=== PATIENT | female | born 1935 | race Caucasian/White ===

== ENCOUNTER → 2017-01-14 | Outpatient (CLI) | payer OTHER ==
[~2017-01-14] MED LIST: ATV5 PO; CRDCD120 PO; ESTA1TAB PO; FSM70 PO; HMLI SC; LISI40TA PO; MULT-506 PO; SIMV20TA2 PO; SYN75 PO; [UNRECOGNIZED DRUG - CODE] PO
[2017-01-14 14:55] LABS: BASO % 0.4 %; BASO ABS # 0.04 K/uL (0-0.2); EOS % 0.3 %; HEMATOCRIT 35.1 % (37-47); IG% 1.3 %; LYMPH % 20.5 %; LYMPH ABS # 2.08 K/uL (1.2-3.4); MEAN CORPUSCULAR HGB CONC 30.5 g/dl (32-36); MEAN PLATELET VOLUME 10.5 fL (7.4-10.4); MONO % 4.2 %; NEUT % 73.3 %; PLATELET COUNT 277 K/uL (130-400); RED BLOOD COUNT 5.09 M/uL (4.2-5.4); WHITE BLOOD COUNT 10.13 K/uL (4.8-10.8)
[2017-01-14 15:17] LABS: ALB/GLOB RATIO 1.1 (0.9-2); ALT/SGPT 24 U/L (12-78); AST/SGOT 17 U/L (15-37); BLOOD UREA NITROGEN 25 mg/dl (7-18); BUN/CREATININE RATIO 16.7 (10-20); CARBON DIOXIDE 26 mmol/L (21-32); CHLORIDE 104 mmol/L (98-107); CHOLESTEROL 167 mg/dl (0-200); GLUCOSE 232 mg/dl (70-99); POTASSIUM 4.5 mmol/L (3.5-5.1); SODIUM 139 mmol/L (136-145); TRIGLYCERIDES 329 mg/dl (0-150); VERY LOW DENSITY LIPOPROT CALC 66 mg/dl
[2017-01-14 15:21] LABS: ALKALINE PHOSPHATASE 99 U/L (45-117); CHOLESTEROL/HDL RATIO 3.2; HDL CHOLESTEROL 52 mg/dl; LDL CHOLESTEROL CALCULATED 49 mg/dl
[2017-01-14 16:09] LABS: ANISOCYTOSIS PRESENT; COMPLETE YES; POIKILOCYTOSIS PRESENT; POLYCHROMASIA 1+
[2017-01-14 16:11] LABS: URINE PROTIEN/CREAT RATIO 0.4 (0-0.2); URINE TOTAL PROTEIN 95.1 mg/dl (0-11.9)
[2017-01-15 06:07] LABS: ESTIMATED AVERAGE GLUCOSE 163 mg/dl; HA1C FLAG Normal (Normal)
--- NOTE | 2017-01-18 11:58 | CODING QUERY MEDICAL NECESSITY ---
SUPPORTING DIAGNOSIS NEEDED Dr. Barbour, A supporting diagnosis is required for the test/procedure performed on this patient in order for us to be reimbursed by the patient's insurance. Please provide a supporting diagnosis for the following test/procedure listed below next to the test name along with your signature. *If there is no additional diagnosis for this patient that would support the following test/procedure please document that below next to the test/procedure. Test(s)/Procedure(s) that require a supporting diagnosis: * ([id number]) B12 VITAMIN LEVEL DIAGNOSIS: DATE OF SERVICE: 01/14/17 Provider Signature: Date: Thank you Jorge Yi [facility] Information Management Once completed, please kindly fax back to [phone] For questions please call [phone]
== END | disposition home or self-care (01) ==
LOC: C.LAB 12:49
PROVIDERS: ATTEND Internal Medicine Geriatric Medicine
DX: E03.9 Hypothyroidism, unspecified (principal); E78.5 Hyperlipidemia, unspecified; D56.3 Thalassemia minor; E11.29 Type 2 diabetes mellitus with other diabetic kidney complication; E11.22 Type 2 diabetes mellitus with diabetic chronic kidney disease; E55.9 Vitamin D deficiency, unspecified; N18.3 Chronic kidney disease, stage 3 (moderate)

== ENCOUNTER → 2017-05-09 | Outpatient (CLI) | payer OTHER ==
[2017-05-09 13:16] LABS: BASO % 0.5 %; BASO ABS # 0.05 K/uL (0-0.2); EOS % 3.1 %; IG% 0.4 %; LYMPH % 31.2 %; LYMPH ABS # 2.89 K/uL (1.2-3.4); MEAN CELL VOLUME 67.5 fL (80-100); MEAN CORPUSCULAR HEMOGLOBIN 20.6 pg (25-34); MEAN CORPUSCULAR HGB CONC 30.6 g/dl (32-36); MEAN PLATELET VOLUME 11.2 fL (7.4-10.4); MONO % 8.2 %; NEUT % 56.6 %; PLATELET COUNT 236 K/uL (130-400); RED BLOOD COUNT 5.33 M/uL (4.2-5.4); WHITE BLOOD COUNT 9.26 K/uL (4.8-10.8)
[2017-05-09 13:38] LABS: BLOOD UREA NITROGEN 19 mg/dl (7-18); BUN/CREATININE RATIO 12.7 (10-20); CALCIUM 9.3 mg/dl (8.5-10.1); CARBON DIOXIDE 26 mmol/L (21-32); CHLORIDE 108 mmol/L (98-107); GLUCOSE 135 mg/dl (70-99); POTASSIUM 4.2 mmol/L (3.5-5.1); SODIUM 142 mmol/L (136-145)
[2017-05-09 13:40] LABS: COMPLETE YES; HYPERSEGMENTED POLYS 1+; MICROCYTOSIS PRESENT; OVALOCYTES 1+
[2017-05-09 13:48] LABS: THYROID STIMULATING HORMONE 0.835 uIu/ml (0.300-4.500)
--- NOTE | 2017-05-14 10:55 | CODING QUERY MEDICAL NECESSITY ---
SUPPORTING DIAGNOSIS NEEDED Dr. Barbour, A supporting diagnosis is required for the test/procedure performed on this patient in order for us to be reimbursed by the patient's insurance. Please provide a supporting diagnosis for the following test/procedure listed below next to the test name along with your signature. *If there is no additional diagnosis for this patient that would support the following test/procedure please document that below next to the test/procedure. Test(s)/Procedure(s) that require a supporting diagnosis: * ([id number]) B12 VITAMIN LEVEL DIAGNOSIS: DATE OF SERVICE: 05/09/17 Provider Signature: Date: Thank you Jorge Yi [facility] Information Management Once completed, please kindly fax back to [phone] For questions please call [phone]
== END | disposition home or self-care (01) ==
LOC: C.LABBC 09:35
PROVIDERS: ATTEND Internal Medicine Geriatric Medicine
DX: E03.9 Hypothyroidism, unspecified (principal); M19.90 Unspecified osteoarthritis, unspecified site; D64.9 Anemia, unspecified; E11.29 Type 2 diabetes mellitus with other diabetic kidney complication; I49.3 Ventricular premature depolarization

== ENCOUNTER → 2017-06-06 | Outpatient (CLI) | payer OTHER | END | disposition home or self-care (01) | LOC: C.LABSPEC 17:03 | PROVIDERS: ATTEND Physician Assistant | DX: N95.0 Postmenopausal bleeding (principal) ==

== ENCOUNTER → 2017-07-15 | Outpatient (CLI) | payer OTHER ==
--- NOTE | 2017-07-15 18:37 | ECHOCARDIOGRAM REPORT ---
*NOTICE TO RECEIVING [employer] This information is strictly Confidential and protected under [place] law. [place] law prohibits you from making any further disclosure of this information unless further disclosure is expressly permitted by the written consent of the person to whom it pertains or is authorized by law. A general authorization for the release of medical or other information is not sufficient for this purpose. Hospital accepts no responsibility if the information is made available to any other person, INCLUDING THE PATIENT. Interpretation Summary * Name: MICAELA JUÁREZ Study Date: 07/15/2017 12:53 PM BP: 174/56 mmHg * Patient Location: [facility] HR: 61 * : 1935 (M/d/yyyy) Gender: Female Height: 61 in * Age: 81 yrs Ethnicity: [place] Weight: 151 lb * Ordering Physician: Sho Montoya * Referring Physician: Sho Montoya . PA-C * Performed By: Yakelin White RCS * * Reason For Study: HTN * BSA: 1.7 m2 * -- Conclusions -- * 1. Normal left ventricular size and systolic function. EF 55-60%. No regional wall motion abnormalities. No left ventricular hypertrophy. Type 1 diastolic dysfunction. * 2. There is mild to moderate mitral regurgitation. * 3. Normal estimated right ventricular systolic pressure; 31 mmHg. * 4. Similar findings compared to prior study on 01/17/2009. Procedure Details * A complete two-dimensional transthoracic echocardiogram was performed (2D, M-mode, Doppler and color flow Doppler). Left Ventricle * Normal left ventricular size and systolic function. EF 55-60%. No regional wall motion abnormalities. No left ventricular hypertrophy. Type 1 diastolic dysfunction. Right Ventricle * The right ventricle is normal in size and function. * The right ventricular systolic function is normal as assessed by tricuspid annular plane systolic excursion (TAPSE) (normal >1.5 cm). Atria * The left atrial size is normal. * Right atrial size is normal. * There is no evidence of atrial septal defect, but resolution does not allow assessment for a patent foramen ovale. Mitral Valve * The mitral valve leaflets appear normal. There is no evidence of stenosis, fluttering, or prolapse. * There is no mitral valve stenosis. * There is mild to moderate mitral regurgitation. Tricuspid Valve * The tricuspid valve is not well visualized, but is grossly normal. * There is no tricuspid stenosis. * There is mild tricuspid regurgitation. Aortic Valve * The aortic valve is trileaflet. * No hemodynamically significant valvular aortic stenosis. * There is no significant aortic regurgitation. Pulmonic Valve * The pulmonary valve is inadequately visualized, but the Doppler data is adequate for interpretation. * There is no pulmonic valvular stenosis. * Trace pulmonic valvular regurgitation. Great Vessels * The aortic root is normal size. Pericardium/Pleural * There is no pericardial effusion. Great Vessels * Normal inferior vena cava size and collapsability with sniff indicates a normal right atrial pressure of 3 mmHg MMode 2D Measurements and Calculations IVSd 1.1 cm LVIDd 4.2 cm LVIDs 2.9 cm LVPWd 1.1 cm IVS/LVPW 0.95 FS 31.0 % EDV(Teich) 77.1 ml ESV(Teich) 31.5 ml EF(Teich) 59.1 % EDV(cubed) 72.4 ml ESV(cubed) 23.7 ml EF(cubed) 67.2 % LV mass(C)d 154.9 grams LV mass(C)dI 92.4 grams/m\S\2 SV(Teich) 45.6 ml SI(Teich) 27.2 ml/m\S\2 SV(cubed) 48.6 ml SI(cubed) 29.0 ml/m\S\2 Ao root diam 3.0 cm Ao root area 6.9 cm\S\2 ACS 1.8 cm LA dimension 3.6 cm LA/Ao 1.2 LVOT diam 2.0 cm LVOT area 3.1 cm\S\2 Doppler Measurements and Calculations MV E max liborio 60.9 cm/sec MV A max liborio 106.2 cm/sec MV E/A 0.57 MV P1/2t max liborio 62.6 cm/sec MV P1/2t 103.9 msec MVA(P1/2t) 2.1 cm\S\2 MV dec slope 176.3 cm/sec\S\2 MV dec time 0.26 sec Ao V2 max 108.9 cm/sec Ao max PG 4.7 mmHg Ao max PG (full) 2.5 mmHg LEIA(V,A) 2.2 cm\S\2 LEIA(V,D) 2.2 cm\S\2 LV V1 max PG 2.3 mmHg LV V1 max 75.5 cm/sec MR max liborio 484.7 cm/sec MR max PG 94.0 mmHg PA V2 max 73.6 cm/sec PA max PG 2.2 mmHg TR max liborio 266.5 cm/sec RVSP(TR) 31.4 mmHg RAP systole 3.0 mmHg
== END | disposition home or self-care (01) ==
LOC: C.CPL 12:41
PROVIDERS: ATTEND Physician Assistant
DX: I10 Essential (primary) hypertension (principal); I44.7 Left bundle-branch block, unspecified; I49.3 Ventricular premature depolarization

== ENCOUNTER → 2017-08-21 | Outpatient (CLI) | payer OTHER ==
--- NOTE | 2017-08-21 10:14 | DIAGNOSTIC IMAGING REPORT ---
TWO VIEW CHEST CLINICAL HISTORY: Cough and flulike symptoms. FINDINGS: PA and lateral chest radiographs are compared to study dated 09/09/2009. The heart is enlarged and there is mild atherosclerotic calcification of the thoracic aorta. The pulmonary vascular structures noncongested. Chronic interstitial thickening and left basilar atelectasis is similar to previous. No airspace consolidation or pleural effusion is seen. There is no pneumothorax. The skeletal structures are osteopenic. The bony thorax appears intact. Cholecystectomy clips are noted. IMPRESSION: Cardiomegaly with no acute cardiopulmonary abnormality. Electronically signed by: Akin Palomo M.D. 08/21/2017 10:12 AM Dictated Date/Time: 08/21/2017 10:11 AM
== END | disposition home or self-care (01) ==
LOC: C.RAD 09:37
PROVIDERS: ATTEND Internal Medicine Geriatric Medicine
DX: R05 Cough (principal)

== ENCOUNTER → 2017-09-06 | Outpatient (CLI) | payer OTHER ==
--- NOTE | 2017-09-06 10:48 | DIAGNOSTIC IMAGING REPORT ---
LUMBAR SPINE 5 VIEWS CLINICAL HISTORY: Chronic low back pain. FINDINGS: 5 views of the lumbar spine are compared to study dated 09/08/2015. The skeletal structures are osteopenic. Vertebral body height and alignment are maintained throughout the lumbar spine. The transverse and spinous processes appear intact. There is partial sacralization of L5. There is no evidence of spondylolysis on the oblique views. Mild facet arthropathy is seen in the lower lumbar spine. There is moderate degenerative disc space narrowing at L4-L5. A posterior disc osteophyte complex is noted at this level. Milder disc space narrowing is seen throughout the remainder of the lumbar spine. The bony pelvis is intact as visualized. Sclerotic change is seen at the sacroiliac joints. Cholecystectomy clips are identified in the right upper quadrant. There is a nonobstructed abdominal bowel gas pattern. Advanced atherosclerotic calcification is noted in the abdominal aorta. IMPRESSION: 1. There is no acute bony abnormality seen involving the lumbosacral spine. 2. Osteopenia and lumbosacral spondylosis as above. This has not significantly changed from 09/08/2015. Electronically signed by: Akin Palomo M.D. 09/06/2017 10:46 AM Dictated Date/Time: 09/06/2017 10:45 AM
== END | disposition home or self-care (01) ==
LOC: C.RADBC 10:27
PROVIDERS: ATTEND Anesthesiology
DX: M54.5 Low back pain (principal); M85.88 Other specified disorders of bone density and structure, other site; M47.897 Other spondylosis, lumbosacral region

== ENCOUNTER → 2017-09-30 | Outpatient (CLI) | payer OTHER ==
[~2017-09-30] MED LIST changes: -ESTA1TAB PO; -FSM70 PO; -[UNRECOGNIZED DRUG - CODE] PO
--- NOTE | 2017-09-30 14:50 | MAMMOGRAPHY REPORT ---
BILATERAL DIGITAL SCREENING MAMMOGRAM TOMOSYNTHESIS WITH CAD: 09/30/2017 CLINICAL HISTORY: Routine screening examination. TECHNIQUE: Breast tomosynthesis in addition to standard 2D mammography was performed. Current study was also evaluated with a Computer Aided Detection (CAD) system. COMPARISON: Comparison is made to exams dated: 01/24/2015 mammogram, 01/21/2014 mammogram, 01/16/2013 ma mmogram, 01/16/2012 mammogram, 01/09/2011 mammogram, and 01/10/2010 mammogram - [facility] er. BREAST COMPOSITION: There are scattered areas of fibroglandular density in both breasts. FINDINGS: There are scattered and loosely grouped benign-appearing round and punctate microcalcificat ions bilaterally. Moderate vascular calcification. No suspicious mass, architectural distortion or cluster of new, suspicious microcalcifications is seen. IMPRESSION: ACR BI-RADS CATEGORY 1: NEGATIVE There is no mammographic evidence of malignancy. A 1 year screening mammogram is recommended. The pa tient will receive written notification of the results. Approximately 10% of breast cancers are not detected with mammography. A negative mammographic report should not delay biopsy if a clinically suggestive mass is present. Sho Rivera M.D. ay/:09/30/2017 11:37:26 Chandelier Maker: Kailny HILLIARD(Shamika)(M), [facility] letter sent: Normal 1/2 BI-RADS Code: ACR BI-RADS Category 1: Negative
== END | disposition home or self-care (01) ==
LOC: C.MAMM 09:50
PROVIDERS: ATTEND Internal Medicine Geriatric Medicine
DX: Z12.31 Encounter for screening mammogram for malignant neoplasm of breast (principal)

== ENCOUNTER → 2017-10-26 | Outpatient (CLI) | payer OTHER ==
[2017-10-26 10:34] LABS: BASO % 0.7 %; BASO ABS # 0.04 K/uL (0-0.2); EOS % 3.6 %; EOS ABS # 0.22 K/uL (0-0.5); HEMATOCRIT 33.7 % (37-47); HEMOGLOBIN 10.5 g/dL (12.0-16.0); IG# 0.02 K/uL (0.00-0.02); LYMPH % 35.4 %; LYMPH ABS # 2.15 K/uL (1.2-3.4); MEAN CELL VOLUME 67.4 fL (80-100); MEAN CORPUSCULAR HGB CONC 31.2 g/dl (32-36); MEAN PLATELET VOLUME 9.7 fL (7.4-10.4); MONO ABS # 0.67 K/uL (0.11-0.59); NEUT ABS # 2.98 K/uL (1.4-6.5); NUCLEATED RED BLOOD CELL ABS 0.03 K/uL (0-0); PLATELET COUNT 234 K/uL (130-400); RED CELL DISTRIBUTION WIDTH CV 15.5 % (11.5-14.5); RED CELL DISTRIBUTION WIDTH SD 37.6 fL (36.4-46.3); WHITE BLOOD COUNT 6.08 K/uL (4.8-10.8)
[2017-10-26 10:44] LABS: HEMOGLOBIN A1C 7.1 % (4.5-5.6)
[2017-10-26 11:36] LABS: ALBUMIN 3.6 gm/dl (3.4-5.0); BLOOD UREA NITROGEN 18 mg/dl (7-18); CALCIUM 8.7 mg/dl (8.5-10.1); CARBON DIOXIDE 24 mmol/L (21-32); CHOLESTEROL 155 mg/dl (0-200); CREATININE 1.08 mg/dl (0.60-1.20); GLUCOSE 202 mg/dl (70-99); POTASSIUM 3.7 mmol/L (3.5-5.1); SODIUM 141 mmol/L (136-145)
[2017-10-26 12:22] LABS: ALKALINE PHOSPHATASE 94 U/L (45-117); ALT/SGPT 20 U/L (12-78); AST/SGOT 13 U/L (15-37); LDL CHOLESTEROL CALCULATED 54 mg/dl
== END | disposition home or self-care (01) ==
LOC: C.LAB 09:14
PROVIDERS: ATTEND Internal Medicine Geriatric Medicine
DX: E03.9 Hypothyroidism, unspecified (principal); N18.3 Chronic kidney disease, stage 3 (moderate); E78.5 Hyperlipidemia, unspecified; E11.29 Type 2 diabetes mellitus with other diabetic kidney complication; I12.9 Hypertensive chronic kidney disease with stage 1 through stage 4 chronic kidney disease, or unspecified chronic kidney disease

== ENCOUNTER → 2017-12-19 | Outpatient (CLI) | payer OTHER ==
--- NOTE | 2017-12-19 08:16 | DIAGNOSTIC IMAGING REPORT ---
LUMBAR SPINE W/O CONTRAST HISTORY: Pain. Neuropathy. LUMBAGO TECHNIQUE: Multiplanar multisequence MRI of the lumbar spine was performed without the use of contrast. COMPARISON: None. FINDINGS: For the purpose of the report the L5-S1 disc space will be located on axial image 23 of 25. Partial lumbar sedation of the S1 segment. Moderate degenerative disc change throughout.. L1-L2: No significant central canal or neural foraminal narrowing. L2-L3: Minimal broad-based disc bulge. Minimal impact anterior thecal sac and right neural foramina. L3-L4: Moderate multifactorial narrowing of the spinal canal. Based left central disc herniation. Mild narrowing left neuroforamina. Moderate hypertrophic change posterior elements and ligamentum flavum. L4-L5: Broad-based right central disc bulge. Minimal impact anterior aspect spinal canal. L5-S1: Broad-based bulging disc. Right lateral bulging disc narrowing the right neural foramina to a moderate degree. Hypertrophic change posterior elements and ligamentum flavum. IMPRESSION: 1. Generalized degenerative disc changes throughout. 2. Moderate multifactorial narrowing of the spinal canal L3-L4 with mild/moderate narrowing left neuroforamina. 3. Broad-based bulging discs at virtually all additional levels with minimal compromise of the neural foramina as described. The above report was generated using voice recognition software. It may contain grammatical, syntax or spelling errors. Electronically signed by: Adeel Coronel M.D. 12/19/2017 8:15 AM Dictated Date/Time: 12/19/2017 8:08 AM
== END | disposition home or self-care (01) ==
LOC: C.MRIBC 07:02
PROVIDERS: ATTEND Anesthesiology
DX: M47.816 Spondylosis without myelopathy or radiculopathy, lumbar region (principal); M48.061 Spinal stenosis, lumbar region without neurogenic claudication; M51.26 Other intervertebral disc displacement, lumbar region

== ENCOUNTER → 2018-04-07 | Outpatient (CLI) | payer OTHER ==
[2018-04-07 10:35] LABS: BASO % 0.7 %; BASO ABS # 0.06 K/uL (0-0.2); EOS ABS # 0.18 K/uL (0-0.5); HEMATOCRIT 34.8 % (37-47); HEMOGLOBIN 10.7 g/dL (12.0-16.0); MEAN CELL VOLUME 69.9 fL (80-100); MEAN CORPUSCULAR HEMOGLOBIN 21.5 pg (25-34); MEAN CORPUSCULAR HGB CONC 30.7 g/dl (32-36); MEAN PLATELET VOLUME 10.1 fL (7.4-10.4); MONO % 7.6 %; MONO ABS # 0.69 K/uL (0.11-0.59); NEUT % 54.6 %; NEUT ABS # 4.99 K/uL (1.4-6.5); NUCLEATED RED BLOOD CELL ABS 0.05 K/uL (0-0); PLATELET COUNT 283 K/uL (130-400); RED CELL DISTRIBUTION WIDTH CV 16.3 % (11.5-14.5); RED CELL DISTRIBUTION WIDTH SD 40.7 fL (36.4-46.3); WHITE BLOOD COUNT 9.12 K/uL (4.8-10.8)
[2018-04-07 10:36] LABS: BLOOD UREA NITROGEN 23 mg/dl (7-18); CALCIUM 8.1 mg/dl (8.5-10.1); CARBON DIOXIDE 23 mmol/L (21-32); CREATININE 1.37 mg/dl (0.60-1.20); GLUCOSE 269 mg/dl (70-99); HEMOGLOBIN A1C 6.8 % (4.5-5.6); POTASSIUM 4.2 mmol/L (3.5-5.1); SODIUM 139 mmol/L (136-145)
== END | disposition home or self-care (01) ==
LOC: C.LABBC 08:10
PROVIDERS: ATTEND Internal Medicine Geriatric Medicine
DX: N18.3 Chronic kidney disease, stage 3 (moderate) (principal); I12.9 Hypertensive chronic kidney disease with stage 1 through stage 4 chronic kidney disease, or unspecified chronic kidney disease; D64.9 Anemia, unspecified; E55.9 Vitamin D deficiency, unspecified

== ENCOUNTER 2020-04-07 10:07 | Inpatient (IN) ==
--- NOTE | 2020-04-07 10:20 | Emergency Department Note ---
History of Present Illness General Chief complaint: Illness Time Seen by Provider: 04/07/20 10:09 Source: patient and EMS Mode of arrival: EMS Limitations: altered mental status History of Present Illness Provider complaint: Altered mental status Onset (ago): unknown Associated symptoms: + weakness Treatments prior to arrival: none This is an 84-year-old female who presents via EMS from home due to altered mental status. Patient lives with her daughter, however in a separate area of the house. Daughter states she has noticed over the last week that she has seemed intermittently confused, had several episodes of incontinence, seem progressively weaker, and "not herself". Daughter states this morning she went over to check on her as they had a scheduled doctor's appointment and found her still in bed and unresponsive. Daughter states she would open her eyes to her voice but could not otherwise respond, was mumbling her speech, so she called 911. EMS states patient's blood sugar was in the 40s, she was given dextrose IV and had a marked improvement in her mentation and speech. Upon arrival here patient was awake and alert, able to answer some questions, however cannot recall much about this morning or even events of yesterday. Patient's blood sugar was improved on recheck. When daughter arrived at bedside she states that while the patient has a history of chronic back pain, she did have another fall a little over a week ago and she feels that the patient has been deteriorating since then. She denies noting any fevers or chills. States she has still been eating when she is strongly encouraged to do so. Daughter states that the patient tries to "manage" her own diabetes as well as her diet and she does not feel she does a very good job. She states occasionally she will have blood sug ars over 400, but she will also experience significant lows to. She denies that the patient has ever had a seizure related to hypoglycemia. She states the patient does not use any aspirin or other anticoagulation. Patient denies any other new or concerning symptoms. She does admit to pain at the left hip, left flank, and left low back since the fall. Daughter denies noting any bruising or obvious injury. No known exposure to any coronavirus positive individual. No other change in medications. Pt seen during a time of high acuity and national emergency pandemic while wearing PPE. Home Medications Home Medications Medication Instructions Recorded Confirmed Type cyanocobalamin (vitamin B-12) 1,000 mcg PO DAILY #90 tab 02/04/19 04/07/20 History 1,000 mcg tablet blood sugar diagnostic #450 ea 04/04/19 04/07/20 Rx insulin syringe-needle U-100 0.5 #1 ea 04/15/19 04/07/20 Rx mL 30 gauge x 1/2" lisinopril 40 mg tablet 40 mg PO DAILY #90 tab 04/15/19 04/07/20 Rx acetaminophen 0 mg PO ONCE PRN 07/23/19 04/07/20 History walker #1 ea 08/07/19 04/07/20 Rx atorvastatin 40 mg tablet 80 mg PO DAILY #180 tab 08/21/19 04/07/20 Rx diltiazem HCl 240 mg 240 mg PO QPM cap 02/02/20 04/07/20 History capsule,extended release 24 hr metoprolol succinate 50 mg 50 mg PO BID #180 tab 02/04/20 04/07/20 Rx tablet,extended release 24 hr trifluoperazine 1 mg tablet 1 mg PO DAILY #90 tab 02/22/20 04/07/20 Rx lorazepam 0.5 mg tablet 0.5 mg PO BID #60 tab 04/04/20 04/07/20 Rx insulin NPH isoph U-100 human 10 unit SQ BID 04/07/20 04/07/20 History [Novolin N NPH U-100 Insulin] insulin aspart U-100 [Novolog 0 unit SUBCUT BID 04/07/20 04/07/20 History U-100 Insulin aspart] levothyroxine 75 mcg PO DAILY 04/07/20 04/07/20 History Allergies Allergy/AdvReac Type Severity Reaction Status Date / Time clarithromycin Allergy Unknown Verified 04/07/20 11:08 Penicillins Allergy Unknown AMOXICILLIN Verified 04/07/20 11:08 amoxicillin Allergy Verified 04/07/20 11:08 fenofibrate [From Tricor] Allergy Verified 04/07/20 11:08 gemfibrozil [From Lopid] Allergy Verified 04/07/20 11:08 sertraline Allergy Verified 04/07/20 11:08 triamcinolone [From Nasacort] Allergy Verified 04/07/20 11:08 oseltamivir [From Tamiflu] AdvReac Intermediate GI upset Unverified 04/07/20 11:08 venlafaxine AdvReac Intermediate Dizziness Unverified 04/07/20 11:08 escitalopram [From Lexapro] AdvReac Unknown "falls" Unverified 04/07/20 11:08 Past Med/Surg History Medical History (Updated 04/07/20 @ 19:19 by Gretchen Donald DO) Chronic kidney disease Chronic low back pain Compression fracture of body of thoracic vertebra Diabetes mellitus, type II Gait instability GERD (gastroesophageal reflux disease) Glaucoma History of basal cell carcinoma Hyperlipidemia Hypertension Hypothyroidism Microcytic anemia Long standing. Reported history of thalassemia trait Mood disorder Stable, managed with trifluoperazine + lorazepam PRN for decades. Evaluated by psychiatry (Dr. Hinson) and unable to tolerate alternative therapy. Previously tried venlafaxine, escitalopram, fluoxetine. Osteopenia DEXA (2015) demonstrated lowest t-score of -1.7 of L femur neck. On Ca + Vit D supplementation Sensorineural hearing loss Bilateral, evaluated by audiology (12/28) with recommendation of hearing aids Thalassemia minor Vitamin B12 deficiency Vitamin D insufficiency Taking Vit D supplementation Surgical History H/O thumb surgery S/P cholecystectomy S/P tonsillectomy Family History Sister Cancer Denies family history of Ovarian cancer Prostate cancer Myocardial infarction Breast cancer Colorectal cancer Social History Smoking Status: Unknown if ever smoked Hx Alcohol Use: No Hx Substance Use: No Preferred Language: Panamanian Communication Ability: Effective Visual Impairment: No Limitations Hearing Ability: Normal marital status: / Current Living Situation: Family Current Living Situation Comment: lives with children current occupational status: retired Feels Safe at Home: Yes Dental Care, Regularly: Yes Physical Activity Frequency Comment: Regularly Seatbelt Use: always Review of Systems Unobtainable due to cognitive status Physical Exam Vital Signs Vital Signs - 24 hr 04/07/20 10:26 04/07/20 10:47 04/07/20 11:04 Temperature 36.6 C Temperature Source Oral Pulse Rate 82 72 73 Pulse Rate from SpO2 Sensor 71 74 Pulse Rhythm Regular Pulse Strength Normal Respiratory Rate 16 16 14 Respiratory Effort / Characteristics Non-Labored Spontaneous Respiratory Depth Normal Respiratory Pattern Regular Blood Pressure 207/81 H 177/71 H Blood Pressure Mean 123 134 Blood Pressure Position Lying Pulse Oximetry 94 97 97 Oxygen Delivery Method Room Air Sepsis Recent Fever Within 48 Hours No Sepsis New/Unexplained Change in Mental Status Yes Sepsis Action Taken by Nursing No Action Required 04/07/20 11:30 04/07/20 11:44 04/07/20 11:59 Temperature Temperature Source Pulse Rate 77 79 86 Pulse Rate from SpO2 Sensor 74 76 Pulse Rhythm Pulse Strength Respiratory Rate 18 18 23 Respiratory Effort / Characteristics Respiratory Depth Respiratory Pattern Blood Pressure 183/73 H 191/65 H Blood Pressure Mean 97 91 Blood Pressure Position Pulse Oximetry 96 96 Oxygen Delivery Method Sepsis Recent Fever Within 48 Hours Sepsis New/Unexplained Change in Mental Status Sepsis Action Taken by Nursing 04/07/20 12:00 04/07/20 12:01 04/07/20 12:30 Temperature Temperature Source Pulse Rate 82 77 77 Pulse Rate from SpO2 Sensor Pulse Rhythm Pulse Strength Respiratory Rate 23 19 Respiratory Effort / Characteristics Respiratory Depth Respiratory Pattern Blood Pressure 188/81 H Blood Pressure Mean 100 Blood Pressure Position Pulse Oximetry Oxygen Delivery Method Sepsis Recent Fever Within 48 Hours Sepsis New/Unexplained Change in Mental Status Sepsis Action Taken by Nursing 04/07/20 12:31 04/07/20 13:00 04/07/20 13:01 Temperature Temperature Source Pulse Rate 74 77 79 Pulse Rate from SpO2 Sensor Pulse Rhythm Pulse Strength Respiratory Rate 15 20 22 Respiratory Effort / Characteristics Respiratory Depth Respiratory Pattern Blood Pressure 177/75 H 194/65 H Blood Pressure Mean 89 106 Blood Pressure Position Pulse Oximetry Oxygen Delivery Method Sepsis Recent Fever Within 48 Hours Sepsis New/Unexplained Change in Mental Status Sepsis Action Taken by Nursing 04/07/20 13:02 04/07/20 13:30 04/07/20 13:31 Temperature Temperature Source Pulse Rate 78 81 86 Pulse Rate from SpO2 Sensor Pulse Rhythm Pulse Strength Respiratory Rate 18 18 21 Respiratory Effort / Characteristics Respiratory Depth Respiratory Pattern Blood Pressure Blood Pressure Mean Blood Pressure Position Pulse Oximetry Oxygen Delivery Method Sepsis Recent Fever Within 48 Hours Sepsis New/Unexplained Change in Mental Status Sepsis Action Taken by Nursing 04/07/20 14:00 04/07/20 14:01 04/07/20 14:30 Temperature Temperature Source Pulse Rate 96 H 83 85 Pulse Rate from SpO2 Sensor Pulse Rhythm Pulse Strength Respiratory Rate 17 19 18 Respiratory Effort / Characteristics Respiratory Depth Respiratory Pattern Blood Pressure 179/105 H 171/87 H Blood Pressure Mean 148 98 Blood Pressure Position Pulse Oximetry 95 Oxygen Delivery Method Sepsis Recent Fever Within 48 Hours Sepsis New/Unexplained Change in Mental Status Sepsis Action Taken by Nursing 04/07/20 15:00 04/07/20 15:30 04/07/20 15:32 Temperature Temperature Source Pulse Rate 82 Pulse Rate from SpO2 Sensor Pulse Rhythm Pulse Strength Respiratory Rate 18 18 20 Respiratory Effort / Characteristics Respiratory Depth Respiratory Pattern Blood Pressure 181/141 H Blood Pressure Mean 163 Blood Pressure Position Pulse Oximetry Oxygen Delivery Method Sepsis Recent Fever Within 48 Hours Sepsis New/Unexplained Change in Mental Status Sepsis Action Taken by Nursing 04/07/20 16:00 04/07/20 16:01 Temperature Temperature Source Pulse Rate Pulse Rate from SpO2 Sensor Pulse Rhythm Pulse Strength Respiratory Rate 20 21 Respiratory Effort / Characteristics Respiratory Depth Respiratory Pattern Blood Pressure 173/40 H Blood Pressure Mean 118 Blood Pressure Position Pulse Oximetry 96 Oxygen Delivery Method Sepsis Recent Fever Within 48 Hours Sepsis New/Unexplained Change in Mental Status Sepsis Action Taken by Nursing GENERAL: alert, well appearing, well nourished, no distress, non-toxic EYE EXAM: normal conjunctiva, PERRL and EOM's grossly intact OROPHARYNX: no exudate, no erythema, lips, buccal mucosa, and tongue normal and mucous membranes are moist NECK: supple, no nuchal rigidity, no adenopathy, non-tender LUNGS: Clear to auscultation. Normal chest wall mechanics, no w/r/r HEART: no murmurs, S1 normal and S2 normal ABDOMEN: abdomen soft, pain in left flank, normo-active bowel sounds, no masses, no rebound or guarding. BACK: Back is symmetrical on inspection and there is no deformity, no midline tenderness, no CVA tenderness. Pain with palpation of left lateral low back. SKIN: no rashes and no bruising UPPER EXTREMITIES: upper extremities are grossly normal. FROM, nml pulses b/l. LOWER EXTREMITIES: No pitting edema. FROM, nml pulses b/l. Pain with palpation of left hip, no deformity or evidence of trauma NEURO EXAM: Normal sensorium, cranial nerves II-XII grossly intact, Slightly thick speech, No facial droop, no gross weakness of arms, no gross weakness of legs. Gross sensation intact. Course Course 1402: Updated on results. 1438: Discussed with Dr. Maguire. Would like blood cultures added. Administered Medications Insulin Aspart (Insulin Aspart 100 Units/Ml 3 Ml Pen) 0 units SC ACHS MARTY Stop: 05/07/20 18:59 Last Admin: 04/07/20 19:18 Dose: 7 units Documented by: [id number] Cosigned by: [id number] Discontinued Medications Sodium Chloride (Nss 1000ml) 1,000 mls @ 200 mls/hr IV .Q5H MARTY Stop: 05/07/20 10:29 Last Admin: 04/07/20 17:47 Dose: Not Given Documented by: [id number] Infusion: 04/07/20 14:48 Dose: 0 mls/hr Documented by: [id number] Admin: 04/07/20 12:15 Dose: 200 mls/hr Documented by: [id number] Ceftriaxone Sodium (Rocephin) 1,000 mg in 50 mls @ 100 mls/hr IV NOW STA Stop: 04/07/20 11:30 Last Infusion: 04/07/20 13:14 Dose: 0 mls/hr Documented by: [id number] Admin: 04/07/20 12:15 Dose: 100 mls/hr Documented by: [id number] Sodium Chloride (Nss 1000ml) 1,000 mls @ 125 mls/hr IV .Q8H MARTY Stop: 05/07/20 14:29 Last Infusion: 04/07/20 19:12 Dose: 0 mls/hr Documented by: [id number] Admin: 04/07/20 14:48 Dose: 125 mls/hr Documented by: [id number] Medical Decision Making Differential Diagnosis Differential diagnoses includes but is not limited to toxic, metabolic, infectious, traumatic, cardiac, neurologic, hematologic, psychiatric and inflammatory etiologies. Medical Records Attestation: I reviewed the patient's medical records. Home Medications Current Medication List: was personally reviewed by me Laboratory Data Attestation: I reviewed the patient's lab results. Result diagrams: 04/07/20 11:04 04/07/20 11:04 Lab Results 04/07/20 04/07/20 04/07/20 Range/Units 10:19 11:04 11:04 WBC 10.10 (4.8-10.8) K/uL RBC 5.08 (4.2-5.4) M/uL Hgb 10.7 L (12.0-16.0) g/dL Hct 34.6 L (37-47) % MCV 68.1 L (80-100) fL MCH 21.1 L (25-34) pg MCHC 30.9 L (32-36) g/dL RDW Std Deviation 39.0 (36.4-46.3) fL RDW Coeff of Blaise 16.0 H (11.5-14.5) % Plt Count 279 (130-400) K/uL MPV 9.8 (7.4-10.4) fL Immature Gran % (Auto) 0.3 % Neut % (Auto) 67.4 % Lymph % (Auto) 25.0 % Coffey % (Auto) 6.2 % Eos % (Auto) 0.9 % Baso % (Auto) 0.2 % Neut # (Auto) 6.80 H (1.4-6.5) K/uL Lymph # (Auto) 2.53 (1.2-3.4) K/uL Coffey # (Auto) 0.63 H (0.11-0.59) K/uL Eos # (Auto) 0.09 (0-0.5) K/uL Baso # (Auto) 0.02 (0-0.2) K/uL Immature Gran # (Auto) 0.03 H (0.00-0.02) K/uL Poikilocytosis Present Microcytosis Present Target Cells 1+ PT (9.0-12.0) Seconds INR (0.9-1.1) Sodium 140 (136-145) mmol/L Potassium 4.0 (3.5-5.1) mmol/L Chloride 106 (98-107) mmol/L Carbon Dioxide 27 (21-32) mmol/L Anion Gap 7.0 (3-11) BUN 13 (7-18) mg/dl Creatinine 0.97 (0.6-1.2) mg/dl Est Cr Clr Drug Dosing 32.0 ml/min Est GFR ( Amer) 61.7 Est GFR (Non-Af Amer) 53.3 BUN/Creatinine Ratio 13.9 (10-20) Glucose 178 H (70-99) mg/dl POC Glucose (70-99) mg/dl Lactate (0.4-2.0) mmol/L Calcium 9.1 (8.5-10.1) mg/dl Magnesium 2.0 (1.8-2.4) mg/dl Total Bilirubin 0.7 (0.2-1) mg/dl AST 28 (15-37) U/L ALT 20 (12-78) U/L Alkaline Phosphatase 95 (45-117) U/L Troponin I 0.036 (0-0.045) ng/ml Total Protein 6.8 (6.4-8.2) gm/dl Albumin 3.2 L (3.4-5.0) gm/dl Globulin 3.6 (2.5-4.0) gm/dl Albumin/Globulin Ratio 0.9 (0.9-2) Lipase 76 (73-393) U/L TSH 1.320 (0.300-4.500) uIu/ml Urine Color Yellow Urine Appearance Clear (Clear) Urine pH 7.0 (4.5-7.5) Ur Specific [place] 1.011 (1.000-1.030) Urine Protein 1+ H (Negative) Urine Glucose (UA) 2+ H (Negative) Urine Ketones Trace H (Negative) Urine Blood 1+ H (Negative) Urine Nitrite Negative (Negative) Urine Bilirubin Negative (Negative) Urine Urobilinogen Negative (Negative) Ur Leukocyte Esterase Trace H (Negative) Urine WBC (Auto) 5-10 H (0-5) /hpf Urine RBC (Auto) 0-4 (0-4) /hpf U Hyaline Cast (Auto) 0 (0-5) /lpf U Epithel Cells (Auto) 5-10 H (0-5) /lpf Urine Bacteria (Auto) 4+ H (Negative) 04/07/20 04/07/20 04/07/20 Range/Units 11:04 11:18 14:44 WBC (4.8-10.8) K/uL RBC (4.2-5.4) M/uL Hgb (12.0-16.0) g/dL Hct (37-47) % MCV (80-100) fL MCH (25-34) pg MCHC (32-36) g/dL RDW Std Deviation (36.4-46.3) fL RDW Coeff of Blaise (11.5-14.5) % Plt Count (130-400) K/uL MPV (7.4-10.4) fL Immature Gran % (Auto) % Neut % (Auto) % Lymph % (Auto) % Coffey % (Auto) % Eos % (Auto) % Baso % (Auto) % Neut # (Auto) (1.4-6.5) K/uL Lymph # (Auto) (1.2-3.4) K/uL Coffey # (Auto) (0.11-0.59) K/uL Eos # (Auto) (0-0.5) K/uL Baso # (Auto) (0-0.2) K/uL Immature Gran # (Auto) (0.00-0.02) K/uL Poikilocytosis Microcytosis Target Cells PT 10.5 (9.0-12.0) Seconds INR 1.0 (0.9-1.1) Sodium (136-145) mmol/L Potassium (3.5-5.1) mmol/L Chloride (98-107) mmol/L Carbon Dioxide (21-32) mmol/L Anion Gap (3-11) BUN (7-18) mg/dl Creatinine (0.6-1.2) mg/dl Est Cr Clr Drug Dosing ml/min Est GFR ( Amer) Est GFR (Non-Af Amer) BUN/Creatinine Ratio (10-20) Glucose (70-99) mg/dl POC Glucose 147 H (70-99) mg/dl Lactate 1.6 (0.4-2.0) mmol/L Calcium (8.5-10.1) mg/dl Magnesium (1.8-2.4) mg/dl Total Bilirubin (0.2-1) mg/dl AST (15-37) U/L ALT (12-78) U/L Alkaline Phosphatase (45-117) U/L Troponin I (0-0.045) ng/ml Total Protein (6.4-8.2) gm/dl Albumin (3.4-5.0) gm/dl Globulin (2.5-4.0) gm/dl Albumin/Globulin Ratio (0.9-2) Lipase (73-393) U/L TSH (0.300-4.500) uIu/ml Urine Color Urine Appearance (Clear) Urine pH (4.5-7.5) Ur Specific [place] (1.000-1.030) Urine Protein (Negative) Urine Glucose (UA) (Negative) Urine Ketones (Negative) Urine Blood (Negative) Urine Nitrite (Negative) Urine Bilirubin (Negative) Urine Urobilinogen (Negative) Ur Leukocyte Esterase (Negative) Urine WBC (Auto) (0-5) /hpf Urine RBC (Auto) (0-4) /hpf U Hyaline Cast (Auto) (0-5) /lpf U Epithel Cells (Auto) (0-5) /lpf Urine Bacteria (Auto) (Negative) Imaging Data Radiologist's Impression: XR hip LT 2V w pelvis CLINICAL HISTORY: Left hip pain status post trauma COMPARISON: None. DISCUSSION: No fractures or dislocations are visualized. Note is made of vascular calcifications. There is no SI joint diastases. There is no symphysis diastases. Joint space appears relatively well preserved for age. IMPRESSION: No fractures or dislocations identified. ACT 112: Negative or not required by law. Electronically signed by: Todd Schmitz M.D. 04/07/2020 11:29 AM XR chest 1V portable CLINICAL HISTORY: trauma STATUS CHANGE COMPARISON STUDY: 07/23/2019 FINDINGS: The cardiac and mediastinal contours are normal. There is no evidence of focal pulmonary consolidation. There is no evidence of failure. No pleural ef fusions are visualized.[There is right shoulder calcific tendinopathy. IMPRESSION: No active disease in the chest. ACT 112: Negative or not required by law. Electronically signed by: Todd Schmitz M.D. 04/07/2020 11:[address] lumbar spine wo con CT DOSE: 1194.53 mGy.cm CLINICAL HISTORY: Low back pain status post trauma TECHNIQUE: Helical images were acquired in transverse plane. Reformatted sagittal and coronal images were reviewed. A dose lowering technique was utilized adhering to the principles of ALARA. CONTRAST: No contrast was administered COMPARISON STUDY: July 2019 FINDINGS: L1-2 level: There is no evidence of significant disc bulge or focal herniation. There is no evidence of spinal or foraminal stenosis. L2-3 level: There is no evidence of significant disc bulge or focal herniation. There is no evidence of spinal or foraminal stenosis. L3-4 level: There is a circumferential disc bulge with moderate spinal stenosis. There is no significant foraminal narrowing L4-5 level: There is a circumferential disc bulge with moderate spinal stenosis. There is no significant foraminal narrowing L5-S1 level: There are postsurgical changes of a right posterior he milaminectomy. There is a mild circumferential disc bulge. There is no significant spinal or foraminal stenosis. No acute fractures or traumatic subluxations are visualized. IMPRESSION: 1. No acute fractures or traumatic subluxations identified 2. Degenerative changes with moderate spinal stenosis at the L3-4, and L4-5 levels. ACT 112: Negative or not required by law. Electronically signed by: Todd Schmitz M.D. 04/07/2020 12:[address] OF THE ABDOMEN AND PELVIS WITHOUT CONTRAST CLINICAL HISTORY: Urinary symptoms. Back pain. COMPARISON STUDY: Abdominal ultrasound February 08, 2011. TECHNIQUE: Axial images of the abdomen and pelvis were obtained without IV contrast. Images were reviewed in the axial, sagittal, and coronal planes. Automated exposure control was utilized for the study. A dose lowering technique was utilized adhering to the principles of ALARA. FINDINGS: Note that the lumbar spine CT will be reported separately. Note is again made of a T12 compression fracture which was shown on CT of July 23, 2019. Vertebral body height loss has increased. 5 mm of retropulsion is noted which results in mild to moderate central canal narrowing. No acute lumbar spine fracture is noted. Evaluation of the abdomen and pelvis is suboptimal on this unenhanced exam. There is no biliary ductal dilatation status post cholecystectomy. No hepatic lesions are identified on unenhanced exam. Pancreatic glandular atrophy is noted. A 1.4 cm cystic pancreatic tail lesion is noted. Unenhanced images of the spleen and adrenal glands are unremarkable. There is moderate bilateral renal cortical thinning. No hydronephrosis or hydroureter. No urinary calculi are identified. Water attenuation left renal lesion favors a cyst. There is no evidence for a bowel obstruction. The appendix is normal. Colonic diverticulosis is noted without evidence for acute diverticulitis. No acute pelvic fracture is noted. IMPRESSION: 1. No urinary calculi or hydronephrosis. 2. No acute process within the abdomen or pelvis on unenhanced exam. 3. Redemonstration of a T12 compression fracture shown on CT of July 23, 2019. Interval increase in vertebral body height loss and retropulsion which results in mild to moderate central canal narrowing. 4. Colonic diverticulosis without evidence for acute diverticulitis. No bowel obstruction. Normal appendix. 5. 1.4 cm cystic pancreatic tail lesion which favors a side branch IPMN. ACT 112: Negative or not required by law. Electronically signed by: Manuelito Martínez M.D. 04/07/2020 12:20 PM Dictated: 04/07/[address] DOSE: HISTORY: Neck pain. trauma TECHNIQUE: Multiaxial CT images of the cervical spine were performed and reformatted in the sagittal and coronal plane without the use of contrast. A dose lowering technique was utilized adhering to the principles of ALARA. COMPARISON: None. FINDINGS: No fractures. No subluxation. Prevertebral soft tissues and the C1-C2 interval are intact. No pneumothorax. Moderate to severe degenerative disc disease throughout the cervical spine with moderate central canal narrowing at C4-C5 due to a focal central disc protrusion. IMPRESSION: No fractures within the cervical spine. Degenerative changes as described above. ACT 112: Negative or not required by law. Electronically signed by: Chavez Moe M.D. 04/07/2020 12:[address] OF THE HEAD WITHOUT CONTRAST CLINICAL HISTORY: Altered mental status. COMPARISON STUDY: Head CT January 07, 2019. TECHNIQUE: Helical axial images of the head were obtained without IV contrast. Automated exposure control was utilized for the study. A dose lowering technique was utilized adhering to the principles of ALARA. FINDINGS: No acute intracranial hemorrhage, midline shift or mass effect is pres ent. White matter hypodensity suggests small vessel disease. The ventricular system is unremarkable. The basilar cisterns are patent. No extra-axial collections are present. There are no findings to suggest acute dural sinus thrombosis or acute territorial infarct. No significant calvarial abnormalities are present. Visualized portions of the sinuses and mastoid air cells are clear. IMPRESSION: No acute intracranial findings. ACT 112: Negative or not required by law. Electronically signed by: Manuelito Martínez M.D. 04/07/2020 12:06 PM ECG Data Attestation: I personally reviewed and interpreted this ECG as follows: Indication: + altered mental status Rate (beats per minute): 75 Rhythm: + normal sinus ECG Intervals/blocks: + Normal QRS and + Prolonged QT ECG Acme: + Normal ECG ST segments: + T-wave inversions (aVL) ECG Findings: + PVCs Blood Pressure Blood Pressure Findings: Elevated blood pressure Blood Pressure Disposition: further management by hospitalist LUIS ANTONIO Narrative Elderly female who presents via EMS with family whom she lives with with 1 week of decline per daughter's report. Patient found today to be unresponsive by daughter and on EMS arrival was hyperglycemic. This was corrected and patient did improve, although daughter states she is not back to her normal mentation and daughter feels her speech is not normal also. Patient has had episodes of increased weakness, decreased appetite, and incontinence over the course of the week. Daughter states she did have a fall last week. Labs drawn and sent as a precaution, cath urine sent, patient sent for CT imaging as well as x-rays. No evidence of bacteremia/sepsis, no evidence of acute renal dysfunction. Patient's UA suggestive of evolving infection and patient was given 1 g of Rocephin IV. Patient was started on gentle IV fluid rehydration. No other evidence of occult trauma on imaging. Patient with chronic findings in the low back likely contributing to chronic back pain and not evolving pyelonephritis. No other evidence of obstructive pathology. No evidence of occult intracranial pathology given unresponsive episode and altered speech. Patient does have risk factors for CVA/TIA, although no other focal neuro deficits were noted. I discussed all results with patient and more importantly with daughter at bedside who was in agreement with the plan for additional inpatient management. Case discussed with hospitalist. Lactic acid reassuring, they did request blood cultures added as a precaution. An order was placed for continuous cardiac monitoring. The monitor shows a rate of 90 with normal sinus_ rhythm. Impression & Plan AMS (altered mental status), Hypoglycemia, Generalized weakness, Acute UTI (urinary tract infection), Chronic low back pain, Anemia Discharge Plan Visit Data Chief Complaint: Illness ED Provider: Gretchen Donald Discharge Problem: AMS (altered mental status), Hypoglycemia, Generalized weakness, Acute UTI (urinary tract infection), Chronic low back pain, Anemia Patient Disposition: Admitted As Inpatient Discharge Instructions Interventions: ED Discharge Assessment Last Done: 04/07/20 17:49 Discharge Problem: AMS (altered mental status) Qualifiers: Altered mental status type: unspecified Qualified Code(s): R41.82 - Altered mental status, unspecified Chronic low back pain Qualifiers: Back pain laterality: bilateral Sciatica presence: without sciatica Qualified Code(s): M54.5 - Low back pain Anemia Qualifiers: Anemia type: unspecified type Qualified Code(s): D64.9 - Anemia, unspecified
[2020-04-07 10:37] LABS: Appearance Urine Clear (Clear); Bacteria Urine Automated 4+ (Negative); Bilirubin Urine Negative (Negative); Blood Urine 1+ (Negative); Cast Urine Automated 0 /lpf (0-5); Color Urine Yellow; Glucose Urine UA 2+ (Negative); Ketones Urine Trace (Negative); Leukocyte Esterase Urine Trace (Negative); Nitrite Urine Negative (Negative); Protein Urine 1+ (Negative); RBC Urine Automated 0-4 /hpf (0-4); Specific Gravity Urine 1.011 (1.000-1.030); Urobilinogen Urine Negative (Negative)
[2020-04-07] MEDS ORDERED: cefTRIAXone SODIUM 1,000 MG/50 ML BAG IV STA (11:01)
--- NOTE | 2020-04-07 11:30 | XRay Report ---
XR chest 1V portable CLINICAL HISTORY: trauma STATUS CHANGE COMPARISON STUDY: 07/23/2019 FINDINGS: The cardiac and mediastinal contours are normal. There is no evidence of focal pulmonary co nsolidation. There is no evidence of failure. No pleural effusions are visualized.[There is right brandyn ulder calcific tendinopathy. IMPRESSION: No active disease in the chest. ACT 112: Negative or not required by law. Electronically signed by: Todd Schmitz M.D. 04/07/2020 11:29 AM
--- NOTE | 2020-04-07 11:31 | XRay Report ---
XR hip LT 2V w pelvis CLINICAL HISTORY: Left hip pain status post trauma COMPARISON: None. DISCUSSION: No fractures or dislocations are visualized. Note is made of vascular calcifications. The re is no SI joint diastases. There is no symphysis diastases. Joint space appears relatively well pre served for age. IMPRESSION: No fractures or dislocations identified. ACT 112: Negative or not required by law. Electronically signed by: Todd Schmitz M.D. 04/07/2020 11:29 AM
[2020-04-07 11:34] LABS: Basophils # (auto) 0.02 K/uL (0-0.2); Basophils % (auto) 0.2 %; Eosinophils # (auto) 0.09 K/uL (0-0.5); Eosinophils % (auto) 0.9 %; Hematocrit (blood only) 34.6 % (37-47); Hemoglobin 10.7 g/dL (12.0-16.0); Immature Granulocytes # (auto) 0.03 K/uL (0.00-0.02); Immature Granulocytes % (auto) 0.3 %; Lymphocytes # (auto) 2.53 K/uL (1.2-3.4); Mean Corpuscular Hemoglobin 21.1 pg (25-34); Mean Corpuscular Hgb Conc 30.9 g/dL (32-36); Mean Corpuscular Volume 68.1 fL (80-100); Mean Platelet Volume 9.8 fL (7.4-10.4); Monocytes # (auto) 0.63 K/uL (0.11-0.59); Monocytes % (auto) 6.2 %; Neutrophils % (auto) 67.4 %; Platelet Count 279 K/uL (130-400); Red Blood Count 5.08 M/uL (4.2-5.4)
[2020-04-07 11:39] LABS: Prothrombin Time 10.5 Seconds (9.0-12.0)
[2020-04-07 11:52] LABS: Albumin Level 3.2 gm/dl (3.4-5.0); BUN Creatinine Ratio 13.9 (10-20); Calcium 9.1 mg/dl (8.5-10.1); Est GFR (African American) 61.7; Est GFR (Non-African American) 53.3
[2020-04-07 12:00] LABS: Microcytosis Present; Poikilocytosis Present; Target Cells 1+
[2020-04-07 12:03] LABS: Albumin Globulin Ratio 0.9 (0.9-2); Bilirubin,Total 0.7 mg/dl (0.2-1); Globulin 3.6 gm/dl (2.5-4.0); Thyroid Stimulating Hormone 1.32 uIu/ml (0.300-4.500); Total Protein 6.8 gm/dl (6.4-8.2); Troponin I 0.036 ng/ml (0-0.045)
--- NOTE | 2020-04-07 12:08 | CT Scan Report ---
CT lumbar spine wo con CT DOSE: 1194.53 mGy.cm CLINICAL HISTORY: Low back pain status post trauma TECHNIQUE: Helical images were acquired in transverse plane. Reformatted sagittal and coronal images were reviewed. A dose lowering technique was utilized adhering to the principles of ALARA. CONTRAST: No contrast was administered COMPARISON STUDY: July 2019 FINDINGS: L1-2 level: There is no evidence of significant disc bulge or focal herniation. There is no evidence of spinal or foraminal stenosis. L2-3 level: There is no evidence of significant disc bulge or focal herniation. There is no evidence of spinal or foraminal stenosis. L3-4 level: There is a circumferential disc bulge with moderate spinal stenosis. There is no signific ant foraminal narrowing L4-5 level: There is a circumferential disc bulge with moderate spinal stenosis. There is no signific ant foraminal narrowing L5-S1 level: There are postsurgical changes of a right posterior hemilaminectomy. There is a mild cir cumferential disc bulge. There is no significant spinal or foraminal stenosis. No acute fractures or traumatic subluxations are visualized. IMPRESSION: 1. No acute fractures or traumatic subluxations identified 2. Degenerative changes with moderate spinal stenosis at the L3-4, and L4-5 levels. ACT 112: Negative or not required by law. Electronically signed by: Todd Schmitz M.D. 04/07/2020 12:07 PM
--- NOTE | 2020-04-07 12:08 | CT Scan Report ---
CT OF THE HEAD WITHOUT CONTRAST CLINICAL HISTORY: Altered mental status. COMPARISON STUDY: Head CT January 07, 2019. TECHNIQUE: Helical axial images of the head were obtained without IV contrast. Automated exposure con trol was utilized for the study. A dose lowering technique was utilized adhering to the principles o f ALARA. FINDINGS: No acute intracranial hemorrhage, midline shift or mass effect is present. White matter hyp odensity suggests small vessel disease. The ventricular system is unremarkable. The basilar cisterns are patent. No extra-axial collections are present. There are no findings to suggest acute dural sinu s thrombosis or acute territorial infarct. No significant calvarial abnormalities are present. Visual ized portions of the sinuses and mastoid air cells are clear. IMPRESSION: No acute intracranial findings. ACT 112: Negative or not required by law. Electronically signed by: Manuelito Martínez M.D. 04/07/2020 12:06 PM
--- NOTE | 2020-04-07 12:11 | CT Scan Report ---
CERVICAL SPINE CT CT DOSE: HISTORY: Neck pain. trauma TECHNIQUE: Multiaxial CT images of the cervical spine were performed and reformatted in the sagittal and coronal plane without the use of contrast. A dose lowering technique was utilized adhering to th e principles of ALARA. COMPARISON: None. FINDINGS: No fractures. No subluxation. Prevertebral soft tissues and the C1-C2 interval are intact. No pneumothorax. Moderate to severe degenerative disc disease throughout the cervical spine with mode rate central canal narrowing at C4-C5 due to a focal central disc protrusion. IMPRESSION: No fractures within the cervical spine. Degenerative changes as described above. ACT 112: Negative or not required by law. Electronically signed by: Chavez Moe M.D. 04/07/2020 12:10 PM
[2020-04-07] MEDS: SODIUM CHLORIDE 0.9% 1000ML 1,000 ML IV SCH ×2 (12:15→17:47)
--- NOTE | 2020-04-07 12:21 | CT Scan Report ---
CT OF THE ABDOMEN AND PELVIS WITHOUT CONTRAST CLINICAL HISTORY: Urinary symptoms. Back pain. COMPARISON STUDY: Abdominal ultrasound February 08, 2011. TECHNIQUE: Axial images of the abdomen and pelvis were obtained without IV contrast. Images were revi ewed in the axial, sagittal, and coronal planes. Automated exposure control was utilized for the bernard dy. A dose lowering technique was utilized adhering to the principles of ALARA. FINDINGS: Note that the lumbar spine CT will be reported separately. Note is again made of a T12 comp ression fracture which was shown on CT of July 23, 2019. Vertebral body height loss has increased . 5 mm of retropulsion is noted which results in mild to moderate central canal narrowing. No acute l umbar spine fracture is noted. Evaluation of the abdomen and pelvis is suboptimal on this unenhanced exam. There is no biliary ductal dilatation status post cholecystectomy. No hepatic lesions are ident ified on unenhanced exam. Pancreatic glandular atrophy is noted. A 1.4 cm cystic pancreatic tail lesi on is noted. Unenhanced images of the spleen and adrenal glands are unremarkable. There is moderate b ilateral renal cortical thinning. No hydronephrosis or hydroureter. No urinary calculi are identified . Water attenuation left renal lesion favors a cyst. There is no evidence for a bowel obstruction. Th e appendix is normal. Colonic diverticulosis is noted without evidence for acute diverticulitis. No a cute pelvic fracture is noted. IMPRESSION: 1. No urinary calculi or hydronephrosis. 2. No acute process within the abdomen or pelvis on unenhanced exam. 3. Redemonstration of a T12 compression fracture shown on CT of July 23, 2019. Interval increase in vertebral body height loss and retropulsion which results in mild to moderate central canal narrow ing. 4. Colonic diverticulosis without evidence for acute diverticulitis. No bowel obstruction. Normal baljinder endix. 5. 1.4 cm cystic pancreatic tail lesion which favors a side branch IPMN. ACT 112: Negative or not required by law. Electronically signed by: Manuelito Martínez M.D. 04/07/2020 12:20 PM
--- NOTE | 2020-04-07 13:51 | Electrocardiogram Report ---
Test Reason : Blood Pressure : / mmHG Vent. 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
[2020-04-07] MEDS ORDERED: SODIUM CHLORIDE 0.9% 1000ML 1,000 ML IV SCH ×2 (14:30→18:45)
--- NOTE | 2020-04-07 16:24 | History & Physical Report ---
Date of Service April 07, 2020 Assessment & Plan (1) Encephalopathy: Encephalopathy could be metabolic from hypoglycemia could be from urinary tract infection present on admission as she does have trace ketones 1+ blood trace leukocyte esterase. ER administered ceftriaxone which will be continued urine culture and blood cultures were obtained will follow glucoses closely. She is normal troponin EKG chest x-ray and thyroid panel on presentation (2) Diabetes mellitus, type II: Patient typically self managing with NPH 10 twice daily and sliding scale at this point time we will check an A1c put her on a sliding scale with carb coverage and due to the low amount of NPH we will see how she trends over the next day or 2 before deciding on how much long-acting insulin to add back ischemic management consult will be undertaken (3) Hypertension: Follow your blood pressure can resume your typical diltiazem 240 lisinopril 40 metoprolol 50 however we will keep her on the monitor in case heart block with her both beta-lashon and calcium channel lashon is present and watch her blood pressures for possible need to de-escalate dosing of these medicines as she ages (4) Hypothyroidism: TSH replete on presentation we will continue Synthroid 75 mcg (5) Compression fracture of body of thoracic vertebra: This is been exacerbated by recent fall but given her mental status changes will avoid opiates and use Lidoderm patch and Tylenol at this time (6) Microcytic anemia: Hemoglobin in the 10 range about similar to usual reportedly has thalassemia trait (7) Chronic kidney disease: Patient is CKD 3, will avoid nephrotoxins if able (8) DVT prophylaxis: Given age and renal function will use heparin for DVT prevention History of Present Illness Primary Care Provider: Shahzad Wise, 84-year-old female who presents via EMS from home due to lethargy slurred speech and alterered mental status. Patient lives with her daughter, however in a separate area of the house. Daughter states she has noticed over the last week that she has become increasingly confused, had several episodes of incontinence, seem progressively weaker, and "not herself". Daughter states this morning she went over to check on her as they had a scheduled doctor's appointment and found her still in bed and lethargic/difficult to awaken. Daughter states she would open her eyes to her voice but could not otherwise respond, was mumbling her speech, so she called 911. EMS states patient's blood sugar was in the 40s, she was given dextrose IV and had a marked improvement in her mentation and speech. Daughter states that the pts blood glucoses are very variable with wide swings from low to high at times. Daughter states that the patient tries to "manage" her own diabetes as well as her diet and she does not feel she does a very good job. Upon arrival here patient was awake and alert, able to answer some questions, however cannot recall much about this morning or even events of yesterday. Patient's blood sugar remained appropriate on recheck. This pt has a history of chronic back pain, exacerbated by a fall a little over a week ago now with worsened left sided pain. She denies noting any fevers or chills. States she has still been eating when she is strongly encouraged to do so. 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 Initial urine dipstick is equivocal but likely UTI with metabolic encephalopathy may be a more likely culprit certainly if we find this to be negative pursuing of an MRI of her brain could be undertaken however the patient was improving while I examined her likely coinciding with her improved glucose Allergies Allergy/AdvReac Type Severity Reaction Status Date / Time clarithromycin Allergy Unknown Verified 04/07/20 11:08 Penicillins Allergy Unknown AMOXICILLIN Verified 04/07/20 11:08 amoxicillin Allergy Verified 04/07/20 11:08 fenofibrate [From Tricor] Allergy Verified 04/07/20 11:08 gemfibrozil [From Lopid] Allergy Verified 04/07/20 11:08 sertraline Allergy Verified 04/07/20 11:08 triamcinolone [From Nasacort] Allergy Verified 04/07/20 11:08 oseltamivir [From Tamiflu] AdvReac Intermediate GI upset Unverified 04/07/20 11:08 venlafaxine AdvReac Intermediate Dizziness Unverified 04/07/20 11:08 escitalopram [From Lexapro] AdvReac Unknown "falls" Unverified 04/07/20 11:08 Home Medications Home Medications Medication Instructions Recorded Confirmed Type cyanocobalamin (vitamin B-12) 1,000 mcg PO DAILY #90 tab 02/04/19 04/07/20 History 1,000 mcg tablet blood sugar diagnostic #450 ea 04/04/19 04/07/20 Rx insulin syringe-needle U-100 0.5 #1 ea 04/15/19 04/07/20 Rx mL 30 gauge x 1/2" lisinopril 40 mg tablet 40 mg PO DAILY #90 tab 04/15/19 04/07/20 Rx acetaminophen 0 mg PO ONCE PRN 07/23/19 04/07/20 History walker #1 ea 08/07/19 04/07/20 Rx atorvastatin 40 mg tablet 80 mg PO DAILY #180 tab 08/21/19 04/07/20 Rx diltiazem HCl 240 mg 240 mg PO QPM cap 02/02/20 04/07/20 History capsule,extended release 24 hr metoprolol succinate 50 mg 50 mg PO BID #180 tab 02/04/20 04/07/20 Rx tablet,extended release 24 hr trifluoperazine 1 mg tablet 1 mg PO DAILY #90 tab 02/22/20 04/07/20 Rx lorazepam 0.5 mg tablet 0.5 mg PO BID #60 tab 04/04/20 04/07/20 Rx insulin NPH isoph U-100 human 10 unit SQ BID 04/07/20 04/07/20 History [Novolin N NPH U-100 Insulin] insulin aspart U-100 [Novolog 0 unit SUBCUT BID 04/07/20 04/07/20 History U-100 Insulin aspart] levothyroxine 75 mcg PO DAILY 04/07/20 04/07/20 History Past Med/Surg History Medical History (Updated 04/07/20 @ 16:24 by Ruddy Maguire MD) Chronic kidney disease Chronic low back pain Compression fracture of body of thoracic vertebra Diabetes mellitus, type II Gait instability GERD (gastroesophageal reflux disease) Glaucoma History of basal cell carcinoma Hyperlipidemia Hypertension Hypothyroidism Microcytic anemia Long standing. Reported history of thalassemia trait Mood disorder Stable, managed with trifluoperazine + lorazepam PRN for decades. Evaluated by psychiatry (Dr. Hinson) and unable to tolerate alternative therapy. Previously tried venlafaxine, escitalopram, fluoxetine. Osteopenia DEXA (2016) demonstrated lowest t-score of -1.7 of L femur neck. On Ca + Vit D supplementation Sensorineural hearing loss Bilateral, evaluated by audiology (12/28) with recommendation of hearing aids Thalassemia minor Vitamin B12 deficiency Vitamin D insufficiency Taking Vit D supplementation Surgical History H/O thumb surgery S/P cholecystectomy S/P tonsillectomy Family History Sister Cancer Denies family history of Ovarian cancer Prostate cancer Myocardial infarction Breast cancer Colorectal cancer Social History Smoking Status: Unknown if ever smoked Hx Alcohol Use: No Hx Substance Use: No Preferred Language: Telugu Communication Ability: Effective Visual Impairment: No Limitations Hearing Ability: Normal marital status: / Current Living Situation: Family Current Living Situation Comment: lives with children current occupational status: retired Feels Safe at Home: Yes Dental Care, Regularly: Yes Physical Activity Frequency Comment: Regularly Seatbelt Use: always Review of Systems Review of Systems: Mild distress and fatigue still with lethargy and some slurring of speech no headache, blurry or double vision no speech or swallowing issues no chest pain, pressure or palpitations no shortness of breath, cough or wheezes no abdominal pain, nausea or vomiting, diarrhea or constipation no dysuria, hematuria or frequency no focal joint pain or swelling Left-sided reproducible and positional back pain, without radicular pain no bruising, bleeding or rashes no focal signs of weakness or numbness or altered sensation generally Dimmed down and garbling with her speech Physical Exam Physical Exam: The patient appeared well nourished and normally developed. She however was lethargic and mumbling with her speech but holding a conversation and being appropriate Vital signs as documented. Head exam is normocephalic atraumatic no scleral icterus Neck is without JVD, thyromegaly, or carotid bruits. Lungs are clear to auscultation, no focal loss of breath sounds Cardiac exam, Rhythm is regular.. Systolic ejection murmur is heard Abdominal exam reveals normal bowel sounds, soft non tender, no masses Left-sided CVA tenderness however the patient states this is the area from her initial pain which was exacerbated by the most recent fall Extremities are nonedematous and both pedal pulses are normal. Neurologic exam is alert and oriented x2, no focal loss of strength or sensation Skin is without rashes or lesions Concern for some baseline dementia Results & Data Results & Data ([facility]) Vital Signs (Past 12 Hours) Vital Signs Temp Pulse Resp BP Pulse Ox 04/07/20 15:00 82 18 04/07/20 14:30 85 18 171/87 H 95 04/07/20 14:01 83 19 179/105 H 04/07/20 14:00 96 H 17 04/07/20 13:31 86 21 04/07/20 13:30 81 18 04/07/20 13:02 78 18 04/07/20 13:01 79 22 194/65 H 04/07/20 13:00 77 20 04/07/20 12:31 74 15 177/75 H 04/07/20 12:30 77 04/07/20 12:01 77 19 188/81 H 04/07/20 12:00 82 23 04/07/20 11:59 86 23 191/65 H 04/07/20 11:44 79 18 183/73 H 96 04/07/20 11:30 77 18 96 04/07/20 11:04 73 14 97 04/07/20 10:47 72 16 177/71 H 97 04/07/20 10:26 97.9 F 82 16 207/81 H 94 EKG performed 04/07/2020 sinus rhythm intraventricular conduction delay possible beginning of left bundle branch block PG Care Time/CCT Total # of Minutes Spent Total Time Spent with Patient: Total time spent is greater than 50% in coordination of care (as documented) at patient's floor/unit and/or counseling patient: Coding Level of Care Code 87876 OBS Care - Level 3 Diagnoses Encephalopathy G93.40 Diabetes mellitus, type II E11.9 Hypertension I10 Hypothyroidism E03.9 Compression fracture of body of thoracic vertebra S22.000A Microcytic anemia D50.9 Chronic kidney disease N18.9 DVT prophylaxis Z29.9
[2020-04-07] MEDS ORDERED: GLUCOSE 40% GEL 15 GM TUBE PO PRN (18:32)
[2020-04-07] MEDS ORDERED: ONDANSETRON INJ 2 MG/ML 2 ML VIAL IV PRN (18:32)
[2020-04-07] MEDS ORDERED: WALKER SCH (18:32)
[2020-04-07] MEDS ORDERED: GLUCOSE 10 TABS/TUBE PO PRN (18:32)
[2020-04-07] MEDS ORDERED: CARBOHYDRATES FOR HYPOGLYCEMIA PO PRN (18:32)
[2020-04-07] MEDS ORDERED: DEXTROSE 50% 50 ML SYRINGE IV PRN (18:32)
[2020-04-07] MEDS ORDERED: GLUCAGON FOR INJ 1 MG VIAL SQ PRN (18:32)
[2020-04-07] MEDS ORDERED: POLYETHYLENE (MIRALAX) 17 GM PACK PO PRN (18:32)
[2020-04-07] MEDS ORDERED: PHARMACY GLYCEMIC MGMT CONSULT PRN (18:43)
[2020-04-07] MEDS: INSULIN ASPART 100 UNITS/ML 3 ML PEN SC SCH ×3 (19:18→23:55)
--- NOTE | 2020-04-07 19:32 | Pharmacy Report ---
Glycemic Control Consultation - Date of Service April 07, 2020 - Scope Scope: Glycemic Pharmacist consulted for glycemic control and to write orders per [facility] inpatient glycemic control protocol. - Objective Weight: 55.8 kg Accuchecks BSG (last 24hrs): 04/07/20 04/07/20 04/07/20 11:04 14:44 18:43 Glucose 178 H POC Glucose 147 H 394 H* 04/07/20 18:45 Glucose POC Glucose 364 H* Laboratory Data (last 24hrs): 04/07/20 11:04 Potassium 4.0 Carbon Dioxide 27 Anion Gap 7.0 Creatinine 0.97 Est Cr Clr Drug Dosing 32.0 - Recent Pertinent Medications Outpatient Anti-diabetic Regimen: * NPH 10 units SQ BID + Novolog 8 units SQ QAM & 5 units SQ QPM (for BSG > 300 mg/dL) * A1c = 7.9% on 02/02/2020 Risk Factors for Insulin Resistance: * Infection: * Ceftriaxone 1 gm IV Q24H for possible UTI * Diet: * T2DM - Assessment & Plan Assessment & Plan: ASSESSMENT: * 84 yo F admitted secondary to encephalopathy. PMHx significant for HLD, HTN, Microcytic anemia, possible thalassemia, T2DM. Pharmacy is consulted for inpatient glycemic management. * Patient lives with daughter and daughter found her still in bed and lethargic/difficult to awaken this morning. EMS stated patient's BSG was in the 40's and she was given IV Dextrose and had marked improvement in mentation and speech. Daughter reports BSGs are variable with wide swings from highs to lows at times. * BSG upon admission was 178 mg/dL. Accucheck a few hours later was 147 mg/dL. Patient is ordered a carb consistent diet. * Given hypoglycemia, will hold off on any basal insulin for now and start with a less aggressive goal range of 120-160 mg/dL. Will plan to start correctional/prandial insulin only. PLAN FOR INPATIENT GLYCEMIC CONTROL: * Basal insulin * On Hold * Bolus insulin * NovoLog per scale ACHS or Q6hrs while NPO * Goal Range: Low 120 mg/dL - High 160 mg/dL * Correction Factor: 30 mg/dL/unit * Nutritional / Prandial insulin per carb ratio of 1 unit per 10 grams CHO consumed * Please note that the plan above was derived based on current level of insulin resistance and hospital stress. These recommendations are appropriate for inpatient admission only. Plan of care upon discharge will need to be reassessed to avoid potential outpatient hypo/hyperglycemia. Thank you.
[2020-04-07] MEDS ORDERED: INSULIN HUMAN REGULAR IV BOLUS 5 UNITS in SYRINGE 0 ML IV ONE (20:00)
[2020-04-07] MEDS ORDERED: POTASSIUM CHLORIDE 20 MEQ TABCR PO ONE (20:00)
[2020-04-07] MEDS ORDERED: INSULIN GLARGINE SOLOSTAR 100 UNITS/ML 3 ML PEN SC ONE (20:00)
[2020-04-07] MEDS: dilTIAZem HCL 240 MG CAPCR PO SCH (20:08)
[2020-04-07] MEDS: METOPROLOL SUCC 50MG EXT REL TAB PO SCH (20:09)
[2020-04-07] MEDS: HEPARIN SOD 5,000 UNIT/0.5 ML VIAL SQ SCH (20:12)
[2020-04-07] MEDS ORDERED: MIRTAZAPINE TAB 15 MG TAB PO ONE (21:15)
[2020-04-08] MEDS: INSULIN ASPART 100 UNITS/ML 3 ML PEN SC SCH ×5 (04:43→20:57)
[2020-04-08] MEDS: ACETAMINOPHEN 325 MG TAB PO PRN (05:15)
[2020-04-08] MEDS: LEVOTHYROXINE SODIUM 75 MCG TABLET PO SCH (05:16)
[2020-04-08 06:47] LABS: Estimated Average Glucose 206 mg/dl; Hemoglobin A1C 8.8 % (4.5-5.6)
[2020-04-08 07:05] LABS: BUN Creatinine Ratio 10.6 (10-20); Calcium 8.6 mg/dl (8.5-10.1); Creatinine Clr Calc Pharmacy 34.5 ml/min; Est GFR (African American) 67.6; Est GFR (Non-African American) 58.3; Potassium 4.3 mmol/L (3.5-5.1)
[2020-04-08 08:04] LABS: Basophils # (auto) 0.03 K/uL (0-0.2); Basophils % (auto) 0.3 %; Eosinophils # (auto) 0.16 K/uL (0-0.5); Eosinophils % (auto) 1.8 %; Hematocrit (blood only) 34.4 % (37-47); Hemoglobin 10.5 g/dL (12.0-16.0); Immature Granulocytes # (auto) 0.02 K/uL (0.00-0.02); Immature Granulocytes % (auto) 0.2 %; Lymphocytes # (auto) 3.25 K/uL (1.2-3.4); Lymphocytes % (auto) 36.7 %; Mean Corpuscular Hemoglobin 20.8 pg (25-34); Mean Corpuscular Hgb Conc 30.5 g/dL (32-36); Mean Corpuscular Volume 68.1 fL (80-100); Mean Platelet Volume 9.5 fL (7.4-10.4); Monocytes % (auto) 7.9 %; Neutrophils % (auto) 53.1 %; Platelet Count 283 K/uL (130-400); RDW Standard Deviation 38.6 fL (36.4-46.3); Red Blood Count 5.05 M/uL (4.2-5.4); White Blood Count 8.86 K/uL (4.8-10.8)
[2020-04-08] MEDS: lisinopriL 40 MG TAB PO SCH (08:10)
[2020-04-08] MEDS: HEPARIN SOD 5,000 UNIT/0.5 ML VIAL SQ SCH ×2 (08:10→20:55)
[2020-04-08] MEDS: METOPROLOL SUCC 50MG EXT REL TAB PO SCH ×2 (08:12→20:59)
[2020-04-08] MEDS: ATORVASTATIN 40 MG TAB PO SCH (08:12)
[2020-04-08 08:52] LABS: Microcytosis Present; Poikilocytosis Present; Smudge Cells Present
[2020-04-08] MEDS ORDERED: INSULIN GLARGINE SOLOSTAR 100 UNITS/ML 3 ML PEN SC SCH (09:00)
[2020-04-08] MEDS: cefTRIAXone SODIUM 1,000 MG in DEXTROSE 5% 50 ML IV SCH (12:04)
--- NOTE | 2020-04-08 12:07 | Pharmacy Report ---
Pharmacy Glycemic Short Note 2 - Date of Service April 08, 2020 - Glycemic Short BSG Results (Last 24 hours): 04/07/20 04/07/20 04/07/20 14:44 18:43 18:45 Glucose POC Glucose 147 H 394 H* 364 H* 04/07/20 04/07/20 04/08/20 21:23 23:48 04:25 Glucose POC Glucose 238 H 93 109 H 04/08/20 04/08/20 04/08/20 06:09 07:53 11:32 Glucose 147 H POC Glucose 219 H 204 H OUTPATIENT ANTIDIABETIC REGIMEN: * NPH 10 units BID * Novolog 8 units SQ QAM & 5 units SQ QPM (for BSG > 300 mg/dL) * A1c = 8.8% 04/08/20 (eAG ~206) ASSESSMENT: 04/08 * BSGs somewhat labile over last 24 hrs, ranging 93-364 * Fasting BSG 219 this AM with 5 units Lantus on board. Of note, just 3 hrs prior her BSG was 109. PO intake prior to AM BSG check? * Will continue w/ basal/bolus SQ regimen at this time and use Lantus as basal due to the peaks and greater risk of hypoglycemia associated with NPH. Basal/bolus regimen will be based upon both weight and out-pt regimen (~30- 35units insulin per day). PLAN FOR INPATIENT GLYCEMIC CONTROL: * Basal insulin * Lantus 5 units SQ BID * Bolus insulin * NovoLog per scale ACHS or Q6hrs while NPO * Goal Range: Low 110 mg/dL - High 140 mg/dL * Correction Factor: 40 mg/dL/unit * Nutritional / Prandial insulin per carb ratio of 1 unit per 14 grams CHO consumed PLAN FOR DISCHARGE: * Given recent severe hypoglycemic event, one must consider altering the home insulin regimen. Might consider use of Lantus insulin instead of NPH to reduce the risk of hypoglycemia. Fixed meal-time dose of insulin may need adjusted down as well.
--- NOTE | 2020-04-08 12:47 | Hospitalist Progress Note ---
Date of Service April 08, 2020 Assessment & Plan (1) Encephalopathy: Metabolic/infectious encephalopathy from low blood sugar and possible UTI. - Treat UTI with ceftriaxone (First dose was 04/07/2020 in the ED). - Monitor blood sugars (2) Diabetes mellitus, type II: Patient typically self managing with NPH 10 twice daily and sliding scale. A1c is 8.8%, meaning her average sugar is >200; however, she reports fairly wild swings with lows of 50 and frequent highs of >300. - Presently on basal-bolus with Lantus/Novolog - Managed by pharmacy - Sugars still slightly labile with 90 - 365 in the last 24 hours. (3) Chronic kidney disease: Patient is CKD 3, will avoid nephrotoxins if able. - Cr stable at baseline today. (4) Hypertension: In last 24 hours, has been generally in the 180/90 range. Now 135/85. - Continue metoprolol 50 mg PO BID, diltiazem 240 mg QPM, and lisinopril 40 mg daily (5) Hypothyroidism: TSH was 1.32 this admission. No signs/symptoms of hypo-/hyperthyroidism. - Continue home Synthroid 75 mcg (6) Compression fracture of body of thoracic vertebra: Not reporting pain at this time to me. - Avoid opiates and use Lidoderm patch and Tylenol at this time (7) Microcytic anemia: Hemoglobin in the 10 range about similar to usual. Reportedly has thalassemia trait. - Monitor (8) DVT prophylaxis: Heparin 5000 units Q12h Admission and Anticipated Discharge Date Admission Date: April 07, 2020 Subjective Feeling tired and dizzy today, reportedly from lack of sleep per patient. Reports no fevers/chills, chest pain, shortness of breath, abdominal pain, nausea, or vomiting. Physical Exam Constitutional: WD/WN, vitals as above Eyes: EOM intact bilaterally; no conjunctival abnormality ENMT: external ear and nose normal, oropharynx normal Neck: trachea midline, no thyromegaly normal visual inspection Respiratory: normal respiratory effort, lungs clear to auscultation no respiratory distress Cardiovascular: RRR, no murmur, no edema Gastrointestinal (Abdomen): Inspection/Auscultation: abdomen normal to inspection; abdomen not distended Musculoskeletal: no cyanosis or clubbing, extremities motor strength 5/5 Skin: no rashes, warm and dry Neurologic: moves all extremities and awake Psychiatric: Orientation: alert, oriented to person and cooperative Results & Data Results & Data ([facility]) Vital Signs (Past 12 Hours) Vital Signs Temp Pulse Pulse Pulse Resp BP BP 04/08/20 12:03 36.8 C 64 20 136/84 04/08/20 08:00 36.3 C L 86 75 18 171/63 H 04/08/20 03:49 36.7 C 83 16 182/85 H Pulse Ox 04/08/20 12:03 97 04/08/20 08:00 96 04/08/20 03:49 94 PG Care Time/CCT Total # of Minutes Spent Total Time Spent with Patient: Total time spent is greater than 50% in coordination of care (as documented) at patient's floor/unit and/or counseling patient: Coding Level of Care Code 48448 Subseq Hosp Care Lvl 3 Diagnoses Encephalopathy G93.40 Diabetes mellitus, type II E11.9 Chronic kidney disease N18.9 Hypertension I10 Hypothyroidism E03.9 Compression fracture of body of thoracic vertebra S22.000A Microcytic anemia D50.9 DVT prophylaxis Z29.9
[2020-04-08] MEDS: dilTIAZem HCL 240 MG CAPCR PO SCH (20:55)
[2020-04-08] MEDS: INSULIN GLARGINE SOLOSTAR 100 UNITS/ML 3 ML PEN SC SCH (20:57)
[2020-04-09] MEDS: LEVOTHYROXINE SODIUM 75 MCG TABLET PO SCH (04:39)
[2020-04-09 07:29] LABS: Hematocrit (blood only) 31.3 % (37-47); Hemoglobin 9.6 g/dL (12.0-16.0); Mean Corpuscular Hemoglobin 20.6 pg (25-34); Mean Corpuscular Hgb Conc 30.7 g/dL (32-36); Mean Corpuscular Volume 67.3 fL (80-100); Mean Platelet Volume 9.6 fL (7.4-10.4); Platelet Count 249 K/uL (130-400); RDW Coefficient of Variation 15.8 % (11.5-14.5); RDW Standard Deviation 38.3 fL (36.4-46.3); Red Blood Count 4.65 M/uL (4.2-5.4); White Blood Count 8.12 K/uL (4.8-10.8)
[2020-04-09 07:54] LABS: BUN Creatinine Ratio 11.9 (10-20); Calcium 8.4 mg/dl (8.5-10.1); Creatinine Clr Calc Pharmacy 31.7 ml/min; Est GFR (Non-African American) 52.6; Potassium 4.1 mmol/L (3.5-5.1)
[2020-04-09] MEDS: lisinopriL 40 MG TAB PO SCH (08:11)
[2020-04-09] MEDS: CYANOCOBALAMIN 500 MCG TABLET (VITAMIN B-12) PO SCH (08:11)
[2020-04-09] MEDS: ATORVASTATIN 40 MG TAB PO SCH (08:11)
[2020-04-09] MEDS: METOPROLOL SUCC 50MG EXT REL TAB PO SCH ×2 (08:11→20:56)
[2020-04-09] MEDS: HEPARIN SOD 5,000 UNIT/0.5 ML VIAL SQ SCH ×2 (08:12→20:59)
[2020-04-09] MEDS: INSULIN GLARGINE SOLOSTAR 100 UNITS/ML 3 ML PEN SC SCH ×2 (08:15→20:59)
[2020-04-09] MEDS: INSULIN ASPART 100 UNITS/ML 3 ML PEN SC SCH ×4 (08:16→21:01)
--- NOTE | 2020-04-09 11:51 | Pharmacy Report ---
Pharmacy Glycemic Short Note 2 - Date of Service April 09, 2020 - Glycemic Short BSG Results (Last 24 hours): 04/08/20 04/08/20 04/09/20 16:55 19:40 06:52 Glucose 116 H POC Glucose 242 H 291 H 04/09/20 04/09/20 07:36 11:37 Glucose POC Glucose 118 H 282 H OUTPATIENT ANTIDIABETIC REGIMEN: * NPH 10 units BID * Novolog 8 units SQ QAM & 5 units SQ QPM (for BSG > 300 mg/dL) * A1c = 8.8% 04/08/20 (eAG ~206) ASSESSMENT: 04/09 * BSGs still labile over last 24 hrs, ranging 116-291mg/dl * Patient's fasting blood sugar 116mg/dl peter to 282mg/dl from breakfast to lunch, and patient did receive AM Lantus but did not qualify for any CHO coverage. * Basal already increased yesterday, will continue basal and tighten CF/CR, mindful of admission d/t hypoglycemia. 04/08 * BSGs somewhat labile over last 24 hrs, ranging 93-364 * Fasting BSG 219 this AM with 5 units Lantus on board. Of note, just 3 hrs prior her BSG was 109. PO intake prior to AM BSG check? * Will continue w/ basal/bolus SQ regimen at this time and use Lantus as basal due to the peaks and greater risk of hypoglycemia associated with NPH. Basal/bolus regimen will be based upon both weight and out-pt regimen (~30- 35units insulin per day). PLAN FOR INPATIENT GLYCEMIC CONTROL: * Basal insulin * Lantus 10 units SQ BID (increased w/ last evening's dose) * Bolus insulin * NovoLog per scale ACHS or Q6hrs while NPO * Goal Range: Low 110 mg/dL - High 140 mg/dL * TIGHTEN: Correction Factor: 30 mg/dL/unit * TIGHTEN: Nutritional / Prandial insulin per carb ratio of 1 unit per 8 grams CHO consumed PLAN FOR DISCHARGE: * Given recent severe hypoglycemic event, one must consider altering the home insulin regimen. Might consider use of Lantus insulin instead of NPH to reduce the risk of hypoglycemia. Fixed meal-time dose of insulin may need adjusted down as well.
[2020-04-09] MEDS: cefTRIAXone SODIUM 1,000 MG in DEXTROSE 5% 50 ML IV SCH (11:56)
--- NOTE | 2020-04-09 15:21 | Hospitalist Progress Note ---
Date of Service April 09, 2020 Assessment & Plan (1) Encephalopathy: Metabolic/infectious encephalopathy from low blood sugar and possible UTI. - Treat UTI with ceftriaxone (First dose was 04/07/2020 in the ED). - Monitor blood sugars - Dramatic improvement today. Will continue abx. Pharmacy managing sugars with Lantus seeming to give consistent sugars. (NPH had too many high and lows.) (2) Diabetes mellitus, type II: Patient typically self managing with NPH 10 twice daily and sliding scale. A1c is 8.8%, meaning her average sugar is >200; however, she reports fairly wild swings with lows of 50 and frequent highs of >300. - Presently on basal-bolus with Lantus/Novolog - Managed by pharmacy - Sugars better today. 116 fast; higher after lunch. Likely adjust meal-time dosing. (3) Chronic kidney disease: Patient is CKD 3, will avoid nephrotoxins if able. - Cr stable at baseline today. (4) Hypertension: In last 24 hours, has been 150/80 range. Now 135/75. - Continue metoprolol 50 mg PO BID, diltiazem 240 mg QPM, and lisinopril 40 mg daily (Daughter reports she was probably not taking these at home, so will need to make sure we don't overtreat with "home" meds.) (5) Hypothyroidism: TSH was 1.32 this admission. No signs/symptoms of hypo-/hyperthyroidism. - Continue home Synthroid 75 mcg (6) Compression fracture of body of thoracic vertebra: Not reporting pain at this time to me. - Avoid opiates and use Lidoderm patch and Tylenol at this time (7) Microcytic anemia: Hemoglobin in the 10 range about similar to usual. Reportedly has thalassemia trait. - Will get AM iron, ferritin, etc. just to be sure she is not also iron deficient. - Monitor (8) DVT prophylaxis: Heparin 5000 units Q12h Admission and Anticipated Discharge Date Admission Date: April 07, 2020 Subjective Doing well today. No major concerns. Reports no fevers/chills, chest pain, shortness of breath, abdominal pain, nausea, or vomiting. Physical Exam Constitutional: WD/WN, vitals as above Eyes: EOM intact bilaterally; no conjunctival abnormality ENMT: external ear and nose normal, oropharynx normal Neck: trachea midline, no thyromegaly normal visual inspection Respiratory: normal respiratory effort, lungs clear to auscultation no respiratory distress Cardiovascular: RRR, no murmur, no edema Gastrointestinal (Abdomen): Inspection/Auscultation: abdomen normal to inspection; abdomen not distended Musculoskeletal: no cyanosis or clubbing, extremities motor strength 5/5 Skin: no rashes, warm and dry Neurologic: moves all extremities and awake Psychiatric: Orientation: alert, oriented to person and cooperative Results & Data Results & Data ([facility]) Vital Signs (Past 12 Hours) Vital Signs Temp Pulse Pulse Resp BP Pulse Ox 04/09/20 15:12 37.0 C 62 18 124/66 96 04/09/20 07:29 36.9 C 67 18 136/75 95 PG Care Time/CCT Total # of Minutes Spent Total Time Spent with Patient: Total time spent is greater than 50% in coordination of care (as documented) at patient's floor/unit and/or counseling patient: Coding Level of Care Code 19759 Subseq Hosp Care Lvl 3 Diagnoses Encephalopathy G93.40 Diabetes mellitus, type II E11.9 Chronic kidney disease N18.9 Hypertension I10 Hypothyroidism E03.9 Compression fracture of body of thoracic vertebra S22.000A Microcytic anemia D50.9 DVT prophylaxis Z29.9
--- NOTE | 2020-04-09 16:05 | Magnetic Resonance Report ---
MRI OF THE BRAIN WITHOUT IV CONTRAST CLINICAL HISTORY: Change in mental status. Slurred speech. COMPARISON STUDY: CT of the brain dated 04/07/2020. TECHNIQUE: MRI of the brain was performed utilizing various T1 and T2-weighted sequences in the axial , sagittal, and coronal planes. IV contrast was not administered for this examination. FINDINGS: Brain parenchyma: There is age-related involutional change noting mild subcortical and periventricula r microangiopathic disease. There is no hemorrhage or mass effect. There is no restricted diffusion t o suggest acute ischemia. Dumont-white matter differentiation is preserved. No extra-axial fluid collec tion is seen. The cerebellar tonsils are normal in configuration. Ventricles, sulci, and cisterns: Prominent secondary to involutional change. Pituitary and sella: Unremarkable. Intracranial vasculature: Normal flow voids are maintained at the skull base. Orbits: The bony orbits are grossly intact. Orbital contents are normal in appearance noting bilatera l ocular lens implants. Sinuses and mastoids: Trace mucosal thickening is noted in the ethmoid sinuses. The remaining paranas al sinuses are clear. There is trace left mastoid effusion. Calvarium: Unremarkable. Cervical cord: Partially visualized cervical spinal cord is normal in morphology and signal intensity . IMPRESSION: No acute intracranial abnormality. ACT 112: Negative or not required by law. Electronically signed by: Akin Palomo M.D. 04/09/2020 4:03 PM
[2020-04-09] MEDS: dilTIAZem HCL 240 MG CAPCR PO SCH (20:56)
[2020-04-10] MEDS: INSULIN ASPART 100 UNITS/ML 3 ML PEN SC SCH ×6 (00:05→21:52)
[2020-04-10] MEDS ORDERED: INSULIN ASPART 100 UNITS/ML 3 ML PEN SC SCH (02:00)
[2020-04-10 05:45] LABS: Hematocrit (blood only) 30.6 % (37-47); Hemoglobin 9.4 g/dL (12.0-16.0); Mean Corpuscular Hemoglobin 21.1 pg (25-34); Mean Corpuscular Hgb Conc 30.7 g/dL (32-36); Mean Corpuscular Volume 68.6 fL (80-100); Nucleated RBC # (auto) 0.02 K/uL (0-0); Nucleated RBC % (auto) 0.2 %; Platelet Count 260 K/uL (130-400); RDW Coefficient of Variation 15.6 % (11.5-14.5); RDW Standard Deviation 38.6 fL (36.4-46.3); Red Blood Count 4.46 M/uL (4.2-5.4); White Blood Count 8.66 K/uL (4.8-10.8)
[2020-04-10 06:12] LABS: BUN Creatinine Ratio 16.8 (10-20); Calcium 8.2 mg/dl (8.5-10.1); Creatinine Clr Calc Pharmacy 32.7 ml/min; Est GFR (African American) 63.3; Est GFR (Non-African American) 54.6; Magnesium 1.9 mg/dl (1.8-2.4); Potassium 3.8 mmol/L (3.5-5.1)
[2020-04-10] MEDS: LEVOTHYROXINE SODIUM 75 MCG TABLET PO SCH (06:17)
[2020-04-10 06:19] LABS: Ferritin 215.7 ng/ml (8-388)
[2020-04-10] MEDS: CYANOCOBALAMIN 500 MCG TABLET (VITAMIN B-12) PO SCH (09:17)
[2020-04-10] MEDS: ATORVASTATIN 40 MG TAB PO SCH (09:18)
[2020-04-10] MEDS: HEPARIN SOD 5,000 UNIT/0.5 ML VIAL SQ SCH ×2 (09:18→20:49)
[2020-04-10] MEDS: METOPROLOL SUCC 50MG EXT REL TAB PO SCH ×2 (09:18→20:51)
[2020-04-10] MEDS: lisinopriL 40 MG TAB PO SCH (09:18)
[2020-04-10] MEDS: INSULIN GLARGINE SOLOSTAR 100 UNITS/ML 3 ML PEN SC SCH ×2 (09:19→20:53)
[2020-04-10] MEDS ORDERED: LORazepam 0.5 MG TAB PO STA (11:47)
[2020-04-10] MEDS: cefTRIAXone SODIUM 1,000 MG in DEXTROSE 5% 50 ML IV SCH (12:01)
--- NOTE | 2020-04-10 13:15 | Pharmacy Report ---
Pharmacy Glycemic Short Note 2 - Date of Service April 10, 2020 - Glycemic Short BSG Results (Last 24 hours): 04/09/20 04/09/20 04/09/20 17:00 20:52 23:57 Glucose POC Glucose 109 H 291 H 174 H 04/10/20 04/10/20 04/10/20 04:04 05:16 08:11 Glucose 76 POC Glucose 98 89 04/10/20 12:17 Glucose POC Glucose 327 H* OUTPATIENT ANTIDIABETIC REGIMEN: * NPH 10 units BID * Novolog 8 units SQ QAM & 5 units SQ QPM (for BSG > 300 mg/dL) * A1c = 8.8% 04/08/20 (eAG ~206) ASSESSMENT: 04/10: * Vera received 45 units of insulin yesterday (20 units of basal, 25 units of bolus) * Fasting BSG is below goal, therefore Lantus will be slightly decreased * Post prandial BSGs are fluctuating, indicating the need for more carb coverage and less correction. Carb coverage was tightened last evening. I will further tighten today based on lunch BSG of 327 mg/dL. Spoke with patient's RN; no snacks in patient room and patient ate little breakfast. 04/09 * BSGs still labile over last 24 hrs, ranging 116-291mg/dl * Patient's fasting blood sugar 116mg/dl peter to 282mg/dl from breakfast to lunch, and patient did receive AM Lantus but did not qualify for any CHO coverage. * Basal already increased yesterday, will continue basal and tighten CF/CR, mindful of admission d/t hypoglycemia. 04/08 * BSGs somewhat labile over last 24 hrs, ranging 93-364 * Fasting BSG 219 this AM with 5 units Lantus on board. Of note, just 3 hrs prior her BSG was 109. PO intake prior to AM BSG check? * Will continue w/ basal/bolus SQ regimen at this time and use Lantus as basal due to the peaks and greater risk of hypoglycemia associated with NPH. Basal/bolus regimen will be based upon both weight and out-pt regimen (~30- 35units insulin per day). PLAN FOR INPATIENT GLYCEMIC CONTROL: * Basal insulin - decrease * Lantus 8 units SQ BID * Bolus insulin - tighten carb coverage * NovoLog per scale ACHS or Q6hrs while NPO * Goal Range: Low 110 mg/dL - High 140 mg/dL * Correction Factor: 40 mg/dL/unit * Nutritional / Prandial insulin per carb ratio of 1 unit per 6 grams CHO consumed PLAN FOR DISCHARGE: * Given recent severe hypoglycemic event, one must consider altering the home insulin regimen. Might consider use of Lantus insulin instead of NPH to redu ce the risk of hypoglycemia. Fixed meal-time dose of insulin may need adjusted down as well.
[2020-04-10] MEDS: dilTIAZem HCL 240 MG CAPCR PO SCH (20:50)
--- NOTE | 2020-04-10 22:09 | Hospitalist Progress Note ---
Date of Service April 10, 2020 Assessment & Plan (1) Encephalopathy: Metabolic/infectious encephalopathy from low blood sugar and possible UTI. -Given dramatic improvement from her mental status, unsure if this is secondary to UTI. However it is difficult to differentiate. will continue to treat. - Treat UTI with ceftriaxone (First dose was 04/07/2020 in the ED). - Monitor blood sugars - (NPH had too many high and lows.) (2) Diabetes mellitus, type II: Patient typically self managing with NPH 10 twice daily and sliding scale. A1c is 8.8%, meaning her average sugar is >200; however, she reports fairly wild swings with lows of 50 and frequent highs of >300. - Presently on basal-bolus with Lantus/Novolog - Managed by pharmacy - Sugars better today. Patient may benefit from adding metformin and perhaps a third medication to lantus. It is documented that she has type 2 diabetes. (3) Chronic kidney disease: Patient is CKD 3, will avoid nephrotoxins if able. - Cr stable at baseline today. (4) Hypertension: In last 24 hours, has been 150/80 range. Now 135/75. - Continue metoprolol 50 mg PO BID, diltiazem 240 mg QPM, and lisinopril 40 mg daily - BP APPEARS TO BE CONTROLLED. (Daughter reports she was probably not taking these at home, so will need to make sure we don't overtreat with "home" meds.) (5) Hypothyroidism: TSH was 1.32 this admission. No signs/symptoms of hypo-/hyperthyroidism. - Continue home Synthroid 75 mcg (6) Compression fracture of body of thoracic vertebra: Not reporting pain at this time to me. - Avoid opiates and use Lidoderm patch and Tylenol at this time (7) Microcytic anemia: Hemoglobin in the 10 range about similar to usual. Reportedly has thalassemia trait. - She does not appear to be iron def. (8) DVT prophylaxis: Heparin 5000 units Q12h will obtain PT/OT Admission and Anticipated Discharge Date Admission Date: April 09, 2020 Subjective 84 yo female reports no new complaints. She states she has been taking lorazepam for years. D/W daughter, patient is now living with the daughter. The daughter is worried about her as she may not be taking the correct medication. Daughter reports patient has refused home health in the past. She is unsure if she can continue to take care of her mother due to the time constraints as she continues to work. She would like to have neurology consult for patient as outpatient. Review of Systems Review of Systems: no headache, blurry or double vision no speech or swallowing issues no chest pain, pressure or palpitations no shortness of breath, cough or wheezes no abdominal pain, nausea or vomiting, diarrhea or constipation no dysuria, hematuria or frequency no focal joint pain or swelling Left-sided reproducible and positional back pain, without radicular pain no bruising, bleeding or rashes no focal signs of weakness or numbness or altered sensation generally Dimmed down and garbling with her speech Physical Exam Physical Exam: Constitutional: WD/WN, vitals as above Eyes: EOM intact bilaterally; no conjunctival abnormality ENMT: external ear and nose normal, oropharynx normal Neck: trachea midline, no thyromegaly normal visual inspection Respiratory: normal respiratory effort, lungs clear to auscultation no respiratory distress Cardiovascular: RRR, no murmur, no edema Gastrointestinal (Abdomen): Inspection/Auscultation: abdomen normal to inspection; abdomen not distended Musculoskeletal: no cyanosis or clubbing, extremities motor strength 5/5 Skin: no rashes, warm and dry Neurologic: moves all extremities and awake Psychiatric: Orientation: alert, oriented to person and cooperative Results & Data Results & Data ([facility]) Vital Signs (Past 12 Hours) Vital Signs Temp Pulse Pulse Resp BP BP Pulse Ox 04/10/20 20:48 71 136/68 04/10/20 15:11 36.5 C 60 18 103/52 L 97 PG Care Time/CCT Total # of Minutes Spent Total Time Spent with Patient: Total time spent is greater than 50% in coordination of care (as documented) at patient's floor/unit and/or counseling patient: Coding Level of Care Code 66925 Subseq Hosp Care Lvl 3 Diagnoses Encephalopathy G93.40 Diabetes mellitus, type II E11.9 Chronic kidney disease N18.9 Hypertension I10 Hypothyroidism E03.9 Compression fracture of body of thoracic vertebra S22.000A Microcytic anemia D50.9 DVT prophylaxis Z29.9 Time Spent (min) 35
[2020-04-11] MEDS: LEVOTHYROXINE SODIUM 75 MCG TABLET PO SCH (05:17)
[2020-04-11 05:29] LABS: Hematocrit (blood only) 28.9 % (37-47); Hemoglobin 8.7 g/dL (12.0-16.0); Mean Corpuscular Hemoglobin 20.7 pg (25-34); Mean Corpuscular Hgb Conc 30.1 g/dL (32-36); Mean Corpuscular Volume 68.8 fL (80-100); Mean Platelet Volume 9.5 fL (7.4-10.4); Platelet Count 241 K/uL (130-400); RDW Coefficient of Variation 15.6 % (11.5-14.5); RDW Standard Deviation 38.3 fL (36.4-46.3); White Blood Count 7.77 K/uL (4.8-10.8)
[2020-04-11 05:54] LABS: BUN Creatinine Ratio 14.4 (10-20); Est GFR (African American) 64.1; Est GFR (Non-African American) 55.3; Potassium 4.1 mmol/L (3.5-5.1)
[2020-04-11] MEDS ORDERED: COUGH DROP (SUGAR FREE) LOZ 24 LOZ/1 BOX BUCCAL PRN (07:26)
[2020-04-11] MEDS: METOPROLOL SUCC 50MG EXT REL TAB PO SCH ×2 (08:48→20:49)
[2020-04-11] MEDS: ATORVASTATIN 40 MG TAB PO SCH (08:48)
[2020-04-11] MEDS: CYANOCOBALAMIN 500 MCG TABLET (VITAMIN B-12) PO SCH (08:48)
[2020-04-11] MEDS: lisinopriL 40 MG TAB PO SCH (08:49)
[2020-04-11] MEDS: HEPARIN SOD 5,000 UNIT/0.5 ML VIAL SQ SCH ×2 (08:49→20:52)
[2020-04-11] MEDS: INSULIN GLARGINE SOLOSTAR 100 UNITS/ML 3 ML PEN SC SCH ×2 (08:50→20:57)
[2020-04-11] MEDS: INSULIN ASPART 100 UNITS/ML 3 ML PEN SC SCH ×5 (08:50→20:55)
--- NOTE | 2020-04-11 08:57 | Pharmacy Report ---
Pharmacy Glycemic Short Note 2 - Date of Service April 11, 2020 - Glycemic Short BSG Results (Last 24 hours): 04/10/20 04/10/20 04/10/20 12:17 17:05 20:34 Glucose POC Glucose 327 H* 116 H 166 H 04/10/20 04/11/20 04/11/20 21:28 05:11 08:00 Glucose 71 POC Glucose 143 H 131 H OUTPATIENT ANTIDIABETIC REGIMEN: * NPH 10 units BID * Novolog 8 units SQ QAM & 5 units SQ QPM (for BSG > 300 mg/dL) * A1c = 8.8% 04/08/20 (eAG ~206) ASSESSMENT: 04/11: * Received 44 units of insulin yesterday (16 of basal, 28 of bolus) * Fasting on lab 71, AM POC 131, slightly decrease lantus again today * Prandial BSGs improved yesterday with carb ratio tightened, elevated at lunch again today, however, morning insulin/meal not until 0850. Will adjust carb ratio with breakfast for tomorrow morning. 04/10: * Vera received 45 units of insulin yesterday (20 units of basal, 25 units of bolus) * Fasting BSG is below goal, therefore Lantus will be slightly decreased * Post prandial BSGs are fluctuating, indicating the need for more carb coverage and less correction. Carb coverage was tightened last evening. I will further tighten today based on lunch BSG of 327 mg/dL. Spoke with patient's RN; no snacks in patient room and patient ate little breakfast. 04/09 * BSGs still labile over last 24 hrs, ranging 116-291mg/dl * Patient's fasting blood sugar 116mg/dl peter to 282mg/dl from breakfast to lunch, and patient did receive AM Lantus but did not qualify for any CHO coverage. * Basal already increased yesterday, will continue basal and tighten CF/CR, mindful of admission d/t hypoglycemia. 04/08 * BSGs somewhat labile over last 24 hrs, ranging 93-364 * Fasting BSG 219 this AM with 5 units Lantus on board. Of note, just 3 hrs prior her BSG was 109. PO intake prior to AM BSG check? * Will continue w/ basal/bolus SQ regimen at this time and use Lantus as basal due to the peaks and greater risk of hypoglycemia associated with NPH. Basal/bolus regimen will be based upon both weight and out-pt regimen (~30- 35units insulin per day). PLAN FOR INPATIENT GLYCEMIC CONTROL: * Basal insulin - decrease * Lantus 7 units SQ BID * Bolus insulin - breakfast change * NovoLog per scale ACHS or Q6hrs while NPO * Goal Range: Low 110 mg/dL - High 140 mg/dL * Correction Factor: 40 mg/dL/unit * Nutritional / Prandial insulin per carb ratio of 1 unit per 6 grams CHO consumed for lunch, dinner, HS; 1 unit per 5.5 grams CHO consumed for breakfast PLAN FOR DISCHARGE: * Given recent severe hypoglycemic event, one must consider altering the home insulin regimen. Might consider use of Lantus insulin instead of NPH to reduce the risk of hypoglycemia. Fixed meal-time dose of insulin may need adjusted down as well.
[2020-04-11] MEDS: ACETAMINOPHEN 325 MG TAB PO PRN (11:57)
[2020-04-11] MEDS: cefTRIAXone SODIUM 1,000 MG in DEXTROSE 5% 50 ML IV SCH (11:57)
[2020-04-11] MEDS ORDERED: LORazepam 0.5 MG TAB PO PRN (15:23)
[2020-04-11] MEDS ORDERED: LORazepam 0.5 MG TAB PO STA (15:23)
[2020-04-11] MEDS: dilTIAZem HCL 240 MG CAPCR PO SCH (20:48)
[2020-04-11] MEDS: TRAVOPROST Z 0.004% OPH SOLN 2.5 ML BTL OP SCH (20:50)
--- NOTE | 2020-04-11 22:17 | Hospitalist Progress Note ---
Date of Service April 11, 2020 Assessment & Plan (1) Encephalopathy: Metabolic/infectious encephalopathy from low blood sugar and possible UTI. -Given dramatic improvement from her mental status, unsure if this is secondary to UTI. However it is difficult to differentiate. will continue to treat. - Treat UTI with ceftriaxone (First dose was 04/07/2020 in the ED). -Not fully committed that her bacteruria is causing these symptoms. However, we will continue to treat as treatment has already been started. -Pending cultures - Monitor blood sugars - (NPH had too many high and lows.) Another culprit may be her lorazepam, which may also be causing her confusion. This will need to be tapered off. D/W psych as a curbside. She may benefit from an outpatient Neuro followup and/ or psych. (2) Diabetes mellitus, type II: Patient typically self managing with NPH 10 twice daily and sliding scale. A1c is 8.8%, meaning her average sugar is >200; however, she reports fairly wild swings with lows of 50 and frequent highs of >300. - Presently on basal-bolus with Lantus/Novolog - Managed by pharmacy - Sugars better today. Patient may benefit from adding metformin and perhaps a third medication to lantus. It is documented that she has type 2 diabetes. (3) Chronic kidney disease: Patient is CKD 3, will avoid nephrotoxins if able. - Cr stable at baseline today. (4) Hypertension: In last 24 hours, has been 150/80 range. Now 135/75. - Continue metoprolol 50 mg PO BID, diltiazem 240 mg QPM, and lisinopril 40 mg daily - BP APPEARS TO BE CONTROLLED. (Daughter reports she was probably not taking these at home, so will need to make sure we don't overtreat with "home" meds.) (5) Hypothyroidism: TSH was 1.32 this admission. No signs/symptoms of hypo-/hyperthyroidism. - Continue home Synthroid 75 mcg (6) Compression fracture of body of thoracic vertebra: Not reporting pain at this time to me. - Avoid opiates and use Lidoderm patch and Tylenol at this time (7) Microcytic anemia: Hemoglobin in the 10 range about similar to usual. Reportedly has thalassemia trait. - She does not appear to be iron def. (8) DVT prophylaxis: Heparin 5000 units Q12h Admission and Anticipated Discharge Date Admission Date: April 09, 2020 Subjective 84 yo female reports feeling better and stronger. She has no new symptoms at this time. Review of Systems Review of Systems: All systems reviewed & are unremarkable except as noted in HPI & below Physical Exam Physical Exam: Constitutional: WD/WN, vitals as above Eyes: EOM intact bilaterally; no conjunctival abnormality ENMT: external ear and nose normal, oropharynx normal Neck: trachea midline, no thyromegaly normal visual inspection Respiratory: normal respiratory effort, lungs clear to auscultation no respiratory distress Cardiovascular: RRR, no murmur, no edema Gastrointestinal (Abdomen): Inspection/Auscultation: abdomen normal to inspection; abdomen not distended Musculoskeletal: no cyanosis or clubbing, extremities motor strength 5/5 Skin: no rashes, warm and dry Neurologic: moves all extremities and awake Psychiatric: Orientation: alert, oriented to person and cooperative Results & Data Results & Data ([facility]) Vital Signs (Past 12 Hours) Vital Signs Temp Pulse Pulse Resp BP BP Pulse Ox 04/11/20 20:44 64 161/70 H 04/11/20 15:39 36.6 C 53 L 17 138/53 L 97 PG Care Time/CCT Total # of Minutes Spent Total Time Spent with Patient: Total time spent is greater than 50% in coordination of care (as documented) at patient's floor/unit and/or counseling patient: Coding Level of Care Code 35665 Subseq Hosp Care Lvl 3 Diagnoses Encephalopathy G93.40 Diabetes mellitus, type II E11.9 Chronic kidney disease N18.9 Hypertension I10 Hypothyroidism E03.9 Compression fracture of body of thoracic vertebra S22.000A Microcytic anemia D50.9 DVT prophylaxis Z29.9 Time Spent (min) 35
[2020-04-12] MEDS ORDERED: INSULIN ASPART 100 UNITS/ML 3 ML PEN SC SCH ×2 (02:00→07:30)
[2020-04-12] MEDS ORDERED: INSULIN HUMAN REGULAR IV BOLUS 5 UNITS in SYRINGE 0 ML IV ONE ×2 (02:30→18:00)
[2020-04-12] MEDS: LEVOTHYROXINE SODIUM 75 MCG TABLET PO SCH ×2 (06:22→06:23)
[2020-04-12] MEDS: HEPARIN SOD 5,000 UNIT/0.5 ML VIAL SQ SCH ×2 (08:54→20:55)
[2020-04-12] MEDS: lisinopriL 40 MG TAB PO SCH (08:58)
[2020-04-12] MEDS: ATORVASTATIN 40 MG TAB PO SCH (08:59)
[2020-04-12] MEDS: METOPROLOL SUCC 50MG EXT REL TAB PO SCH ×2 (08:59→20:55)
[2020-04-12] MEDS: CYANOCOBALAMIN 500 MCG TABLET (VITAMIN B-12) PO SCH (08:59)
[2020-04-12] MEDS ORDERED: INSULIN GLARGINE SOLOSTAR 100 UNITS/ML 3 ML PEN SC SCH ×3 (09:00→21:00)
--- NOTE | 2020-04-12 11:35 | Pharmacy Report ---
Pharmacy Glycemic Short Note 2 - Date of Service April 12, 2020 - Glycemic Short BSG Results (Last 24 hours): 04/11/20 04/11/20 04/11/20 11:57 11:59 17:08 POC Glucose 307 H* 290 H 274 H 04/11/20 04/11/20 04/11/20 20:18 20:19 20:22 POC Glucose 379 H* 446 H* 411 H* 04/12/20 04/12/20 04/12/20 01:45 01:47 04:48 POC Glucose 449 H* 425 H* 251 H 04/12/20 04/12/20 08:12 08:13 POC Glucose 303 H* 269 H OUTPATIENT ANTIDIABETIC REGIMEN: * NPH 10 units BID * Novolog 8 units SQ QAM & 5 units SQ QPM (for BSG > 300 mg/dL) * A1c = 8.8% 04/08/20 (eAG ~206) ASSESSMENT: 04/12: * Patient received total of 44 units of insulin yesterday, of which 14 were basal insulin * BSGs trending up overnight up into the 400s, given some IV insulin and now at 269 mg/dL this morning * Increase basal insulin back to 10 units bid (same as home dose) * Tighten CF/CR this AM 04/11: * Received 44 units of insulin yesterday (16 of basal, 28 of bolus) * Fasting on lab 71, AM POC 131, slightly decrease lantus again today * Prandial BSGs improved yesterday with carb ratio tightened, elevated at lunch again today, however, morning insulin/meal not until 0850. Will adjust carb ratio with breakfast for tomorrow morning. PLAN FOR INPATIENT GLYCEMIC CONTROL: * Basal insulin - increase * Lantus 10 units SQ BID - plan to transition to once daily insulin if insurance covers Lantus/Levemir * Bolus insulin - tighten * NovoLog per scale ACHS or Q6hrs while NPO * Goal Range: Low 110 mg/dL - High 140 mg/dL * Correction Factor: 30 mg/dL/unit * Nutritional / Prandial insulin per carb ratio of 1 unit per 5 grams CHO PLAN FOR DISCHARGE: * A1c of 8.8 on admission - goal <8% * Recommend transition to once daily insulin such as Lantus/Levemir - 20 units daily (depending on insurance coverage) * Would change novolog to pre-set dose with meals - could consider 5-8 units TIDM. Would recommend patient has followup outpatient as I anticipate novolog may need titrated * Encourage continued self monitoring of BSGs at home, at least 3x/day * Would avoid oral agents at this time (metformin/SGLT2) due to CKD stage 3. Due to labile BSGs, feel that continuation of insulin would be best option for blood sugar management
[2020-04-12] MEDS: cefTRIAXone SODIUM 1,000 MG in DEXTROSE 5% 50 ML IV SCH (11:51)
[2020-04-12 12:17] LABS: Hematocrit (blood only) 28.4 % (37-47); Hemoglobin 8.9 g/dL (12.0-16.0); Mean Corpuscular Hemoglobin 20.9 pg (25-34); Mean Corpuscular Hgb Conc 31.3 g/dL (32-36); Mean Corpuscular Volume 66.8 fL (80-100); Mean Platelet Volume 9.5 fL (7.4-10.4); Platelet Count 231 K/uL (130-400); RDW Coefficient of Variation 15.5 % (11.5-14.5); Red Blood Count 4.25 M/uL (4.2-5.4); White Blood Count 5.53 K/uL (4.8-10.8)
[2020-04-12] MEDS: INSULIN ASPART 100 UNITS/ML 3 ML PEN SC SCH ×4 (12:39→20:56)
[2020-04-12 12:53] LABS: BUN Creatinine Ratio 14.5 (10-20); Calcium 8.3 mg/dl (8.5-10.1); Est GFR (African American) 52.4; Est GFR (Non-African American) 45.2; Potassium 4.1 mmol/L (3.5-5.1)
[2020-04-12] MEDS: TRAVOPROST Z 0.004% OPH SOLN 2.5 ML BTL OP SCH (19:38)
[2020-04-12] MEDS: dilTIAZem HCL 240 MG CAPCR PO SCH (20:55)
[2020-04-12] MEDS: ACETAMINOPHEN 325 MG TAB PO PRN (21:04)
--- NOTE | 2020-04-12 22:10 | Hospitalist Progress Note ---
Date of Service April 12, 2020 Assessment & Plan (1) Encephalopathy: Metabolic/infectious encephalopathy from low blood sugar and possible UTI. -Given dramatic improvement from her mental status, unsure if this is secondary to UTI. However it is difficult to differentiate. will continue to treat. - Treat UTI with ceftriaxone (First dose was 04/07/2020 in the ED). -Not fully committed that her bacteruria is causing these symptoms. However, we will continue to treat as treatment has already been started. Had prolonged discussion with daughter regarding discharge plan. Explained to her that UTI is not synonymous with confusion. Given how she presented and has multiple factors that could have worsened her confusion: benzo use, hypoglycemia-hyperglycemia. Explained to daughter if her urine culture was resistant to the current treatment, and if patient improved, it would mean that the possible UTI was not playing a role with her confusion. This became a moot point as patient;'s urine culture is sensitive to ceftriaxone. Unsure if I would consider this the main culprit, but cannot rule this out. For this reason, will continue antibiotic use. As stated above, another culprit may be her lorazepam, which may also be causing her confusion. This will need to be tapered off. She is agreeable to this. D/W psych as a curbside. She may benefit from an outpatient Neuro followup and/ or psych. (2) Diabetes mellitus, type II: Patient typically self managing with NPH 10 twice daily and sliding scale. A1c is 8.8%, meaning her average sugar is >200; however, she reports fairly wild swings with lows of 50 and frequent highs of >300. - Presently on basal-bolus with Lantus/Novolog - Managed by pharmacy - Sugars better today. Patient may benefit from adding metformin and perhaps a third medication to lantus. It is documented that she has type 2 diabetes. (3) Chronic kidney disease: Patient is CKD 3, will avoid nephrotoxins if able. - Cr stable at baseline today. (4) Hypertension: In last 24 hours, has been 150/80 range. Now 135/75. - Continue metoprolol 50 mg PO BID, diltiazem 240 mg QPM, and lisinopril 40 mg daily - BP APPEARS TO BE CONTROLLED. (Daughter reports she was probably not taking these at home, so will need to make sure we don't overtreat with "home" meds.) (5) Hypothyroidism: TSH was 1.32 this admission. No signs/symptoms of hypo-/hyperthyroidism. - Continue home Synthroid 75 mcg (6) Compression fracture of body of thoracic vertebra: Not reporting pain at this time to me. - Avoid opiates and use Lidoderm patch and Tylenol at this time (7) Microcytic anemia: Hemoglobin in the 10 range about similar to usual. Reportedly has thalassemia trait. - She does not appear to be iron def. (8) DVT prophylaxis: Heparin 5000 units Q12h Admission and Anticipated Discharge Date Admission Date: April 09, 2020 Subjective 84 yo female reports feeling well. She has no new complaints. Review of Systems Review of Systems: All systems reviewed & are unremarkable except as noted in HPI & below Physical Exam Physical Exam: Constitutional: WD/WN, vitals as above Eyes: EOM intact bilaterally; no conjunctival abnormality ENMT: external ear and nose normal, oropharynx normal Neck: trachea midline, no thyromegaly normal visual inspection Respiratory: normal respiratory effort, lungs clear to auscultation no respiratory distress Cardiovascular: RRR, no murmur, no edema Gastrointestinal (Abdomen): Inspection/Auscultation: abdomen normal to inspection; abdomen not distended Musculoskeletal: no cyanosis or clubbing, extremities motor strength 5/5 Skin: no rashes, warm and dry Neurologic: moves all extremities and awake Psychiatric: Orientation: alert, oriented to person and cooperative Results & Data Results & Data ([facility]) Vital Signs (Past 12 Hours) Vital Signs Temp Pulse Resp BP BP Pulse Ox 04/12/20 20:53 64 127/73 04/12/20 15:15 36.6 C 54 L 17 92/43 L 96 PG Care Time/CCT Total # of Minutes Spent Total Time Spent with Patient: Total time spent is greater than 50% in coordination of care (as documented) at patient's floor/unit and/or counseling patient: Coding Level of Care Code 72723 Subseq Hosp Care Lvl 3 Diagnoses Encephalopathy G93.40 Diabetes mellitus, type II E11.9 Chronic kidney disease N18.9 Hypertension I10 Hypothyroidism E03.9 Compression fracture of body of thoracic vertebra S22.000A Microcytic anemia D50.9 DVT prophylaxis Z29.9 Time Spent (min) 45
[2020-04-13] MEDS: INSULIN ASPART 100 UNITS/ML 3 ML PEN SC SCH ×3 (00:39→08:29)
[2020-04-13 06:08] LABS: Hematocrit (blood only) 27.8 % (37-47); Hemoglobin 8.7 g/dL (12.0-16.0); Mean Corpuscular Hemoglobin 21.2 pg (25-34); Mean Corpuscular Hgb Conc 31.3 g/dL (32-36); Mean Corpuscular Volume 67.6 fL (80-100); Platelet Count 238 K/uL (130-400); RDW Coefficient of Variation 15.7 % (11.5-14.5); RDW Standard Deviation 37.7 fL (36.4-46.3); Red Blood Count 4.11 M/uL (4.2-5.4); White Blood Count 5.39 K/uL (4.8-10.8)
[2020-04-13] MEDS: HEPARIN SOD 5,000 UNIT/0.5 ML VIAL SQ SCH (08:27)
[2020-04-13] MEDS: ATORVASTATIN 40 MG TAB PO SCH (08:29)
[2020-04-13] MEDS: lisinopriL 40 MG TAB PO SCH (08:30)
[2020-04-13] MEDS: CYANOCOBALAMIN 500 MCG TABLET (VITAMIN B-12) PO SCH (08:30)
[2020-04-13] MEDS: METOPROLOL SUCC 50MG EXT REL TAB PO SCH (08:30)
[2020-04-13] MEDS ORDERED: INSULIN GLARGINE SOLOSTAR 100 UNITS/ML 3 ML PEN SC SCH (09:00)
--- NOTE | 2020-04-20 12:12 | Discharge Summary ---
Date of Service April 13, 2020 Admission HPI Per Admitting Provider 84-year-old female who presents via EMS from home due to lethargy slurred speech and alterered mental status. Patient lives with her daughter, however in a separate area of the house. Daughter states she has noticed over the last week that she has become increasingly confused, had several episodes of incontinence, seem progressively weaker, and "not herself". Daughter states this morning she went over to check on her as they had a scheduled doctor's appointment and found her still in bed and lethargic/difficult to awaken. Daughter states she would open her eyes to her voice but could not otherwise respond, was mumbling her speech, so she called 911. EMS states patient's blood sugar was in the 40s, she was given dextrose IV and had a marked improvement in her mentation and speech. Daughter states that the pts blood glucoses are very variable with wide swings from low to high at times. Daughter states that the patient tries to "manage" her own diabetes as well as her diet and she does not feel she does a very good job. Upon arrival here patient was awake and alert, able to answer some questions, however cannot recall much about this morning or even events of yesterday. Patient's blood s ugar remained appropriate on recheck. This pt has a history of chronic back pain, exacerbated by a fall a little over a week ago now with worsened left sided pain. She denies noting any fevers or chills. States she has still been eating when she is strongly encouraged to do so. 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 Initial urine dipstick is equivocal but likely UTI with metabolic encephalopathy may be a more likely culprit certainly if we find this to be negative pursuing of an MRI of her brain could be undertaken however the patient was improving while I examined her likely coinciding with her improved glucose Principal Diagnosis Acute encepheloapthy Discharge Exam Constitutional: WD/WN, vitals as above Eyes: EOM intact bilaterally; no conjunctival abnormality ENMT: external ear and nose normal, oropharynx normal Neck: trachea midline, no thyromegaly normal visual inspection Respiratory: normal respiratory effort, lungs clear to auscultation no respiratory distress Cardiovascular: RRR, no murmur, no edema Gastrointestinal (Abdomen): Inspection/Auscultation: abdomen normal to inspection; abdomen not distended Musculoskeletal: no cyanosis or clubbing, extremities motor strength 5/5 Skin: no rashes, warm and dry Neurologic: moves all extremities and awake Psychiatric: Orientation: alert, oriented to person and cooperative Discharge Data Allergies Allergy/AdvReac Type Severity Reaction Status Date / Time clarithromycin Allergy Unknown Verified 04/07/20 11:08 Penicillins Allergy Unknown AMOXICILLIN Verified 04/07/20 11:08 amoxicillin Allergy Verified 04/07/20 11:08 fenofibrate [From Tricor] Allergy Verified 04/07/20 11:08 gemfibrozil [From Lopid] Allergy Verified 04/07/20 11:08 sertraline Allergy Verified 04/07/20 11:08 triamcinolone [From Nasacort] Allergy Verified 04/07/20 11:08 oseltamivir [From Tamiflu] AdvReac Intermediate GI upset Unverified 04/07/20 11:08 venlafaxine AdvReac Intermediate Dizziness Unverified 04/07/20 11:08 escitalopram [From Lexapro] AdvReac Unknown "falls" Unverified 04/07/20 11:08 Consultations 04/07/20 14:40 ED Decision to Admit Stat 04/07/20 18:32 Consult Case Management - Discharge Planning Routine Ordered Studies 04/07/20 10:16 CT head/brain wo con Stat 04/07/20 10:18 CT abd pelvis wo con Stat 04/07/20 10:53 CT cervical spine wo con Stat CT lumbar spine wo con Stat 04/09/20 07:43 MR brain wo con Routine Hospital Course (1) Encephalopathy: Metabolic/infectious encephalopathy from low blood sugar and possible UTI. -Given dramatic improvement from her mental status, unsure if this is secondary to UTI. However it is difficult to differentiate. will continue to treat. - Treat UTI with ceftriaxone (First dose was 04/07/2020 in the ED). -Not fully committed that her bacteruria is causing these symptoms. However, we will continue to treat as treatment has already been started. Had prolonged discussion with daughter regarding discharge plan. Explained to her that UTI is not synonymous with confusion. Given how she presented and has multiple factors that could have worsened her confusion: benzo use, hypoglycemia-hyperglycemia. Explained to daughter if her urine culture was resistant to the current treatment, and if patient improved, it would mean that the possible UTI was not playing a role with her confusion. This became a moot point as patient's urine culture is sensitive to ceftriaxone. Unsure if I would consider this the main culprit, but cannot rule this out. Patient though did have urinary incontience prior to treatment which may be a symptom of a UTI. Patient completed 6 days worth of IV antibiotics. As stated above, another culprit may be her lorazepam, which may also be causing her confusion. This will need to be tapered off. Discharge instructions in regards to lorazepam given below. D/W psych as a curbside. She may benefit from an outpatient Neuro followup and/ or psych. (2) Diabetes mellitus, type II: Patient typically self managing with NPH 10 twice daily and sliding scale. A1c is 8.8%, meaning her average sugar is >200; however, she reports fairly wild swings with lows of 50 and frequent highs of >300. - Presently on basal-bolus with Lantus/Novolog - Managed by pharmacy - Sugars better today. Patient may benefit from adding metformin and perhaps a third medication to lantus. It is documented that she has type 2 diabetes. Will discharge her though on insulin. (3) Chronic kidney disease: Patient is CKD 3, will avoid nephrotoxins if able. - Cr stable at baseline today. (4) Hypertension: In last 24 hours, has been 150/80 range. Now 135/75. - Continue metoprolol 50 mg PO BID, diltiazem 240 mg QPM, and lisinopril 40 mg daily - BP APPEARS TO BE CONTROLLED. (Daughter reports she was probably not taking these at home, so will need to make sure we don't overtreat with "home" meds.) (5) Hypothyroidism: TSH was 1.32 this admission. No signs/symptoms of hypo-/hyperthyroidism. - Continue home Synthroid 75 mcg (6) Compression fracture of body of thoracic vertebra: Not reporting pain at this time to me. - Avoid opiates and use Lidoderm patch and Tylenol at this time (7) Microcytic anemia: Hemoglobin in the 10 range about similar to usual. Reportedly has thalassemia trait. - She does not appear to be iron def. (8) DVT prophylaxis: Heparin 5000 units Q12h Total Time Total Time Spent Total Time Spent (In Minutes): 32 Total Time Includes: Examination of the Patient, Discharge Planning and Medication Reconciliation Discharge Plan Discharge Items Patient Disposition: Transfer Halfway Fac Reason For Visit: METABOLIC ENCEPHALOPATHY Discharge Diagnosis: metabolic encephalopathy Activity: Resume your previous activity Non-emergency contact: Primary Care Provider Call non-emergency contact if: you have any medication questions Follow-up/Referrals: Shahzad Wise, [Primary Care Provider] - Addtl Attending Provider Instructions: To decrease fall risk and confusion: Psych is recommending outpatient neuro or psych follow up within 1 month Essentially a gradual slow taper off the Ativan (no replacement) of 25% off the total daily dose weekly until discontinued to reduce deliriogenic effects. Tapered lorazepam 0.5 mg PO BID to 0.25 mg in PM and .5 in AM. Stelazine will cover in the meantime. This will be started at 1 mg once daily. Then once Ativan is discontinued completely, psych recommends a sedating anti- depressant like Remeron at a low dose to replace the Ativan. Then Stelazine can be DCed as it adds to fall risk. In regards to blood sugar, will need close followup with PCP. Will be on lantus 20 units in AM With insulin aspart 8 units three times a day before each meal. Recommend checking blood sugar 3 times a day and keeping a journal. Recommend followup with PCP in 1-2 weeks. You completed therapy for a possible urinary tract infection. Pending Studies at Discharge: No Stand-Alone Forms: My [facility] Skilled Items Patient informed of condition?: Yes DNR: No Discharge Level of Care: Skilled Communicable Disease: No Discharge Prognosis: Stable Lines: None Urinary Catheter: No Medications and DC Order Prescriptions: New Lantus Solostar U-100 Insulin 100 unit/mL (3 mL) Insulin Pen 20 unit SC DAILY Qty: 15 RF: 0 trifluoperazine 1 mg tablet 1 mg PO DAILY Qty: 30 RF: 0 lorazepam 0.5 mg tablet 0.25 mg PO HS PRN (Reason: anxiety) Qty: 10 RF: 0 Continued (DME) OneTouch Ultra Blue Test Strip strip See Dose Instructions .ROUTE .MEDSUPPLY Qty: 450 RF: 3 (DME) insulin syringe-needle U-100 [BD Insulin Syringe Ultra-Fine] 0.5 mL 30 gauge x 1/2" syringe See Dose Instructions .ROUTE .MEDSUPPLY Qty: 1 RF: 0 lisinopril 40 mg tablet 40 mg PO DAILY Qty: 90 RF: 3 (DME) walker misc See Rx Instructions .ROUTE .MEDSUPPLY Qty: 1 RF: 0 atorvastatin 40 mg tablet 80 mg PO DAILY Qty: 180 RF: 3 metoprolol succinate 50 mg tablet extended release 24 hr 50 mg PO BID Qty: 180 RF: 1 trifluoperazine 1 mg tablet 1 mg PO DAILY Qty: 90 RF: 1 cyanocobalamin (vitamin B-12) 1,000 mcg tablet 1,000 mcg PO DAILY Qty: 90 RF: 0 diltiazem HCl 240 mg capsule,extended release 24hr 240 mg PO QPM RF: 0 acetaminophen 325 mg Tablet 0 mg PO ONCE PRN (Reason: Pain) RF: 0 levothyroxine 75 mcg tablet 75 mcg PO DAILY RF: 0 lorazepam 0.5 mg tablet 0.5 mg PO DAILY Qty: 60 RF: 1 Changed insulin aspart U-100 [Novolog U-100 Insulin aspart] 100 unit/mL solution 8 unit subcut TIDM Qty: 0 RF: 0 Discontinued lorazepam 0.5 mg tablet 0.5 mg PO BID Qty: 60 RF: 1 Novolin N NPH U-100 Insulin 100 unit/mL suspension 10 unit SQ BID RF: 0 Discharge Orders: Discharge Order (Routine); Ordered 04/13/20 Ordered By: Edward Vaca/Other Patient Handouts: High Blood Sugar (Hyperglycemia), Hypoglycemia (Low Blood Sugar), Managing Type 2 Diabetes Admission Data Admit Date/Time: 04/09/20 15:14 Attending Provider: Edward Ludwig Admit Provider: Ruddy Maguire Primary Care Provider: Shahzad Wise Other Providers: Riky Manzo ; Alexis Onofre [facility] ; [facility] ; [facility] ; Ruddy Maguire Other Interventions: Discharge Summary Assessment (RN) Last Done: 04/13/20 09:47 Coding Level of Care Code D/C Day Management >30 mins Diagnoses Encephalopathy G93.40 Diabetes mellitus, type II E11.9 Chronic kidney disease N18.9 Hypertension I10 Hypothyroidism E03.9 Compression fracture of body of thoracic vertebra S22.000A Microcytic anemia D50.9 DVT prophylaxis Z29.9 Time Spent (min) 32
== END 2020-04-13 10:52 | DRG 689 ==
LOC: 2W 10:07 → ED 10:07 → SUATTDRO 16:31 → 2W 17:49 → 3E 04-09 14:42 → SUATTDRO 04-09 15:14
DX: E03.9 Hypothyroidism, unspecified; N18.3 Chronic kidney disease, stage 3 (moderate); F39 Unspecified mood [affective] disorder; X58.XXXA Exposure to other specified factors, initial encounter; H40.9 Unspecified glaucoma; Y92.89 Other specified places as the place of occurrence of the external cause; Z79.4 Long term (current) use of insulin; Z88.0 Allergy status to penicillin; I12.9 Hypertensive chronic kidney disease with stage 1 through stage 4 chronic kidney disease, or unspecified chronic kidney disease; K21.9 Gastro-esophageal reflux disease without esophagitis; E11.649 Type 2 diabetes mellitus with hypoglycemia without coma; S22.000A Wedge compression fracture of unspecified thoracic vertebra, initial encounter for closed fracture; E11.22 Type 2 diabetes mellitus with diabetic chronic kidney disease; D64.9 Anemia, unspecified; Z88.1 Allergy status to other antibiotic agents; G93.41 Metabolic encephalopathy; N39.0 Urinary tract infection, site not specified; Z79.899 Other long term (current) drug therapy

== ENCOUNTER 2021-06-03 13:22 | Inpatient (IN) ==
[2021-06-03] MEDS ORDERED: SODIUM CHLORIDE 0.9% 1000ML 500 ML IV ONE (13:32)
--- NOTE | 2021-06-03 13:38 | Emergency Department Note ---
Impression & Plan Unresponsive episode, Slurred speech, Acute confusion ED Provider Note Name: MICAELA JUÁREZ Age: 85 Sex: F Arrives Via: Ambulance Informant: Patient, Daughter (Fredrick [phone]), EMS ED Provider: Dennis Wiley MD Chief Complaint: Unresponsive Impression: As per Impressions above Medical Decision Makin yr old female with history DMII who lives in attached apartment to family. Seen normal at 10a, then found 12:30p unresponsive slumped over table. Slowly came too and had some confusion after this. No neuro deficits but slow slurred speech. Without clear neuro deficits and already outside of 3 hr TPA window, I do not feel this patient be TPA candidate. CT head obtained which was negative for acute findings. Etoh and drug screen negative. Labs otherwise unremarkable without evidence ACS. No sob/hypoxia nor other finding of PE/dissection. She is not septic, and no clear evidence systemic infection. UA with bacteria though patient denies symptoms, reviewed with hospitalist and will hold off on abx at this time. Given syncope/slurred speech hospitalist consulted for further management. Prior Medical Record and Triage/Nursing Notes reviewed by Me Additional history obtained from daughter & chart Differentials:Vasovagal event, dehydration, infection, hypoglycemia, electrolyte abnormalities, cardiac sources, intracerebral event, pulmonary embolism, seizure, toxicologic, neurologic, as well as other pathologies. Vital Signs: reviewed and remarkable for no significant abnormalities Interventions: saline lock, nss bolus Labs:Reviewed and remarkable for no significant abnormalities Imaging:See Below EKG:Per My Interpretation: Indication syncope: Sinus yris 56 bpm, qtc [address]ressions. No Ectopy. No Ischemia. Compared to EKG 09/24/20, no significant changes. Cardiac/Tele Monitoring: Cardiac Monitoring: An Order was placed for continuous cardiac monitoring. The monitor shows a rate of 60 with a normal sinus rhythm. Consults:Dr Ludwig Plan: Disposition:Hospitalization. Condition: Fair History of Present Illness:85yr old female arrives for evaluation of ams. Patient lives alone and when family went to go check on her this morning she was noted to be unresponsive leaning over her cereal bowel. She was groggy when she came too with slow mildly slurred speech. Patient states she feels well and has no symptoms. No medications prior to arrival. Nothing seems to make slowness better nor worse. no trauma, injuries, nor recent falls per patient. No focal weakness, facial droop nor other neuro symptoms. Patient denies drug/etoh use. No chest pain, headache, neck pain, sob, palpitations, abdominal pain, back pain, leg swelling, calf pain, rashes, fevers, chills, nausea, vomiting, nor other symptoms. Per EMS, slurred speech is new for patient. She had normal BSG en route to ED. ROS: See above HPI for pertinent positives & negatives. A total of 10 systems reviewed and were otherwise negative. Past Medical History:See Below Past Surgical History:See Below Family History:See Below Social History:See Below Home Medications:See Below Allergies:See Below Vitals:Blood Pressure: 166/93, Pulse 60, RR 23, T 36.4C, O2 96% on RA Physical Exam: GENERAL: Patient is tired appearing and in minimal distress. EYES: No scleral icterus, unremarkable pupils. ENT: Mucous membranes moist, no nasal congestion. NECK: No masses appreciated, nomeningismus, trachea is midline. RESPIRATORY: No dyspnea. Clear to auscultation and equal bilaterally. No wheeze, no rhonchi. CARDIOVASCULAR: Regular rate and rhythm.No murmurs, rubs, gallops appreciated. GASTROINTESTINAL: Abdomen soft, non-tender, no peritonitis.Bowel sounds positive.No masses appreciated. BACK: No midline tenderness, no CVA tenderness EXTREMITIES: Normal motion all extremities, no cyanosis, no edema. NEUROLOGIC: Awake and oriented though slow mildly slurred speech, no acute motor or sensory deficits, no focal weakness, cranial nerves grossly intact. SKIN: No rash, no jaundice, no diaphoresis. PSYCH: Appropriate GCS: 15 ED Course: Times/Reassessments: stable, continued slow mildly slurred speech and mild con fusion though alert/oriented Dennis Wiley MD Past Med/Surg History Medical History Acute UTI (urinary tract infection) AMS (altered mental status) Chronic kidney disease Chronic low back pain Compression fracture of body of thoracic vertebra Diabetes mellitus, type II Gait instability GERD (gastroesophageal reflux disease) Glaucoma History of basal cell carcinoma Hyperlipidemia Hypertension Hypoglycemia associated with type 2 diabetes mellitus Hypothyroidism Lumbar pain Microcytic anemia Mood disorder Osteopenia Sensorineural hearing loss Sensorineural hearing loss of both ears Thalassemia minor Vitamin B12 deficiency Vitamin D insufficiency Surgical History H/O thumb surgery S/P cholecystectomy S/P tonsillectomy Family History Sister Cancer Family/Other Hearing loss Hypertension Allergies Heart disease Asthma Other No family history of adverse response to anesthesia No family history of bleeding disorder Denies family history of Ovarian cancer Prostate cancer Myocardial infarction Breast cancer Colorectal cancer Social History Smoking Status: Never smoker Hx Alcohol Use: Yes Alcohol Intake Frequency: Monthly or Less Hx Substance Use: No Preferred Language: Romansh Communication Ability: Effective Visual Impairment: No Limitations Hearing Ability: Normal marital status: / Current Living Situation: Family Current Living Situation Comment: w/ daughter current occupational status: retired Feels Safe at Home: Yes Dental Care, Regularly: Yes Physical Activity Frequency Comment: Regularly Seatbelt Use: always Assistive Devices: Walker Allergies Allergies Allergy/AdvReac Type Severity Reaction Status Date / Time clarithromycin Allergy Unknown Unknown Verified 06/03/21 15:47 Penicillins Allergy Unknown AMOXICILLIN Verified 06/03/21 15:47 amoxicillin Allergy Unknown Verified 06/03/21 15:47 fenofibrate [From Tricor] Allergy Unknown Verified 06/03/21 15:47 gemfibrozil [From Lopid] Allergy Unknown Verified 06/03/21 15:47 triamcinolone [From Nasacort] Allergy Unknown Verified 06/03/21 15:47 dulaglutide [From Trulicity] AdvReac Severe Nausea Verified 06/03/21 15:47 semaglutide [From Ozempic] AdvReac Severe Nausea Verified 06/03/21 15:47 oseltamivir [From Tamiflu] AdvReac Intermediate GI upset Verified 06/03/21 15:47 venlafaxine AdvReac Intermediate Dizziness Verified 06/03/21 15:47 escitalopram [From Lexapro] AdvReac Unknown "falls" Verified 06/03/21 15:47 nitrofurantoin AdvReac nausea/vomi Verified 06/03/21 15:47 ting Home Meds Home Medications Medication Instructions Recorded Confirmed cyanocobalamin (vitamin B-12) 1,000 mcg PO DAILY #90 tab 02/04/19 06/03/21 1,000 mcg tablet acetaminophen 500 mg capsule 500 mg PO Q6H PRN 04/28/20 06/03/21 glucagon 1 mg/0.2 mL subcutaneous 1 mg SUBCUT ONCE PRN ml 11/21/20 06/03/21 auto-injector insulin glargine 100 unit/mL (3 15 unit SC QAM ml 12/15/20 06/03/21 mL) subcutaneous pen (Lantus Solostar U-100 Insulin) blood sugar diagnostic (The WhootTouch ea 05/08/21 Ultra Test) Previous Rx's Medication Instructions Recorded diltiazem HCl 240 mg 240 mg PO QPM #90 cap 01/23/21 capsule,extended release 24 hr metoprolol succinate 50 mg 50 mg PO DAILY #90 tab 01/23/21 tablet,extended release 24 hr quetiapine 50 mg tablet 50 mg PO BID #60 tab 05/08/21 atorvastatin 40 mg tablet 80 mg PO DAILY #180 tab 05/09/21 levothyroxine 50 mcg tablet 50 mcg PO DAILY #90 tab 05/09/21 rivastigmine tartrate 1.5 mg 1.5 mg PO BID #60 cap 05/09/21 capsule lorazepam 0.5 mg tablet See Rx Instructions PO DAILY PRN 05/15/21 #45 tab lisinopril 40 mg tablet 40 mg PO DAILY #90 tab 05/30/21 memantine 5 mg tablet (Namenda) 5 mg PO QAM 30 Days #30 tab 05/30/21 omeprazole 20 mg capsule,delayed 20 mg PO QAM #90 cap 05/30/21 release sertraline 100 mg tablet 150 mg PO DAILY #90 tab 05/30/21 insulin aspart U-100 100 unit/mL 2 - 8 unit SUBCUT UD PRN #3 ml 06/01/21 (3 mL) subcutaneous pen (Novolog Flexpen U-100 Insulin aspart) lancets 30 gauge (OneTouch Delica #100 ea 06/01/21 Lancets) pen needle, diabetic 31 gauge x #400 ea 06/01/21 5/16" (Comfort EZ Pen [place]) Results & Data (ED) Vital Signs Vital Signs - 24 hr 06/03/21 13:12 06/03/21 13:33 06/03/21 14:00 Temperature 36.4 C L Temperature Source Oral Pulse Rate 56 L 57 L 71 Pulse Rate from SpO2 Sensor Pulse Rhythm Regular Pulse Strength Normal Respiratory Rate 20 16 6 L Respiratory Effort / Characteristics Non-Labored Respiratory Depth Normal Blood Pressure 130/97 Blood Pressure Mean 108 Blood Pressure Position Semi-fowlers Pulse Oximetry 92 100 99 Oxygen Delivery Method Room Air Sepsis Recent Fever Within 48 Hours No Sepsis New/Unexplained Change in Mental Status Yes Sepsis Action Taken by Nursing No Action Required 06/03/21 14:30 06/03/21 15:00 06/03/21 15:30 Temperature Temperature Source Pulse Rate 55 L 59 L 60 Pulse Rate from SpO2 Sensor 58 L 58 L Pulse Rhythm Pulse Strength Respiratory Rate 16 18 23 Respiratory Effort / Characteristics Respiratory Depth Blood Pressure 166/93 H Blood Pressure Mean 117 Blood Pressure Position Pulse Oximetry 100 100 96 Oxygen Delivery Method Sepsis Recent Fever Within 48 Hours Sepsis New/Unexplained Change in Mental Status Sepsis Action Taken by Nursing Laboratory Data Result diagrams: 06/03/21 13:41 06/03/21 13:41 Lab Results 06/03/21 06/03/21 06/03/21 Range/Units 13:41 13:41 13:48 WBC 6.95 (4.8-10.8) K/uL RBC 4.38 (4.2-5.4) M/uL Hgb 9.0 L (12.0-16.0) g/dL Hct 28.6 L (37-47) % MCV 65.3 L (80-100) fL MCH 20.5 L (25-34) pg MCHC 31.5 L (32-36) g/dL RDW Std Deviation 37.2 (36.4-46.3) fL RDW Coeff of Blaise 15.8 H (11.5-14.5) % Plt Count 231 (130-400) K/uL MPV 10.7 H (7.4-10.4) fL Immature Gran % (Auto) 0.4 % Neut % (Auto) 66.5 % Lymph % (Auto) 21.6 % Barton % (Auto) 9.8 % Eos % (Auto) 1.6 % Baso % (Auto) 0.1 % Neut # (Auto) 4.62 (1.4-6.5) K/uL Lymph # (Auto) 1.50 (1.2-3.4) K/uL Barton # (Auto) 0.68 H (0.11-0.59) K/uL Eos # (Auto) 0.11 (0-0.5) K/uL Baso # (Auto) 0.01 (0-0.2) K/uL Immature Gran # (Auto) 0.03 H (0.00-0.02) K/uL Absolute Nucleated RBC 0.03 H (0-0) K/uL Nucleated RBC % (auto) 0.5 % Hypochromasia Present Poikilocytosis Present Basophilic Stippling 1+ Microcytosis Present Ovalocytes 1+ Sodium 139 (136-145) mmol/L Potassium 4.7 (3.5-5.1) mmol/L Chloride 106 (98-107) mmol/L Carbon Dioxide 28 (21-32) mmol/L Anion Gap 5.0 (3-11) BUN 23 H (7-18) mg/dl Creatinine 1.21 H (0.6-1.2) mg/dl Est Cr Clr Drug Dosing Not Reportable Est GFR ( Amer) 46.9 ml/min Est GFR (Non-Af Amer) 40.5 ml/min BUN/Creatinine Ratio 19.2 (10-20) Glucose 186 H (70-99) mg/dl Calcium 9.0 (8.5-10.1) mg/dl Magnesium 1.8 (1.8-2.4) mg/dl Total Bilirubin 0.7 (0.2-1) mg/dl Direct Bilirubin 0.2 (0-0.2) mg/dl AST 52 H (15-37) U/L ALT 41 (12-78) U/L Alkaline Phosphatase 116 (45-117) U/L Troponin I < 0.015 (0-0.045) ng/ml Total Protein 6.3 L (6.4-8.2) gm/dl Albumin 3.1 L (3.4-5.0) gm/dl Lipase 132 (73-393) U/L Urine Color Urine Appearance (Clear) Urine pH (4.5-7.5) Ur Specific [place] (1.000-1.030) Urine Protein (Negative) Urine Glucose (UA) (Negative) Urine Ketones (Negative) Urine Blood (Negative) Urine Nitrite (Negative) Urine Bilirubin (Negative) Urine Urobilinogen (Negative) Ur Leukocyte Esterase (Negative) Urine WBC (Auto) (0-5) /hpf Urine RBC (Auto) (0-4) /hpf U Hyaline Cast (Auto) (0-5) /lpf U Epithel Cells (Auto) (0-5) /lpf Urine Bacteria (Auto) (Negative) Urine Opiates Screen (Neg) Ur Methadone, Qual (Neg) Urine Barbiturates (Neg) Ur Phencyclidine (PCP) (Neg) U Amphetamin/Meth Scrn (Neg) MDMA (Ecstasy) Screen (Neg) U Benzodiazepines Scrn (Neg) Ur Cocaine Metabolite (Neg) U Marijuana (THC) Screen (Neg) Ethyl Alcohol mg/dL (0-3) mg/dl COVID-19 Eval Order Covid19 at [facility] SARS-CoV-2 (PCR) (Negative) 06/03/21 06/03/21 06/03/21 Range/Units 13:48 14:09 15:34 WBC (4.8-10.8) K/uL RBC (4.2-5.4) M/uL Hgb (12.0-16.0) g/dL Hct (37-47) % MCV (80-100) fL MCH (25-34) pg MCHC (32-36) g/dL RDW Std Deviation (36.4-46.3) fL RDW Coeff of Blaise (11.5-14.5) % Plt Count (130-400) K/uL MPV (7.4-10.4) fL Immature Gran % (Auto) % Neut % (Auto) % Lymph % (Auto) % Barton % (Auto) % Eos % (Auto) % Baso % (Auto) % Neut # (Auto) (1.4-6.5) K/uL Lymph # (Auto) (1.2-3.4) K/uL Barton # (Auto) (0.11-0.59) K/uL Eos # (Auto) (0-0.5) K/uL Baso # (Auto) (0-0.2) K/uL Immature Gran # (Auto) (0.00-0.02) K/uL Absolute Nucleated RBC (0-0) K/uL Nucleated RBC % (auto) % Hypochromasia Poikilocytosis Basophilic Stippling Microcytosis Ovalocytes Sodium (136-145) mmol/L Potassium (3.5-5.1) mmol/L Chloride (98-107) mmol/L Carbon Dioxide (21-32) mmol/L Anion Gap (3-11) BUN (7-18) mg/dl Creatinine (0.6-1.2) mg/dl Est Cr Clr Drug Dosing Est GFR ( Amer) ml/min Est GFR (Non-Af Amer) ml/min BUN/Creatinine Ratio (10-20) Glucose (70-99) mg/dl Calcium (8.5-10.1) mg/dl Magnesium (1.8-2.4) mg/dl Total Bilirubin (0.2-1) mg/dl Direct Bilirubin (0-0.2) mg/dl AST (15-37) U/L ALT (12-78) U/L Alkaline Phosphatase (45-117) U/L Troponin I (0-0.045) ng/ml Total Protein (6.4-8.2) gm/dl Albumin (3.4-5.0) gm/dl Lipase (73-393) U/L Urine Color Yellow Urine Appearance Cloudy A (Clear) Urine pH 7.0 (4.5-7.5) Ur Specific [place] 1.009 (1.000-1.030) Urine Protein Trace H (Negative) Urine Glucose (UA) Trace H (Negative) Urine Ketones Negative (Negative) Urine Blood Negative (Negative) Urine Nitrite Negative (Negative) Urine Bilirubin Negative (Negative) Urine Urobilinogen Negative (Negative) Ur Leukocyte Esterase 2+ H (Negative) Urine WBC (Auto) 10-30 H (0-5) /hpf Urine RBC (Auto) 0-4 (0-4) /hpf U Hyaline Cast (Auto) 1-5 (0-5) /lpf U Epithel Cells (Auto) >30 H (0-5) /lpf Urine Bacteria (Auto) 4+ H (Negative) Urine Opiates Screen (Neg) Ur Methadone, Qual (Neg) Urine Barbiturates (Neg) Ur Phencyclidine (PCP) (Neg) U Amphetamin/Meth Scrn (Neg) MDMA (Ecstasy) Screen (Neg) U Benzodiazepines Scrn (Neg) Ur Cocaine Metabolite (Neg) U Marijuana (THC) Screen (Neg) Ethyl Alcohol mg/dL < 3.0 (0-3) mg/dl COVID-19 Eval Order SARS-CoV-2 (PCR) NEGATIVE (Negative) 06/03/21 Range/Units 15:34 WBC (4.8-10.8) K/uL RBC (4.2-5.4) M/uL Hgb (12.0-16.0) g/dL Hct (37-47) % MCV (80-100) fL MCH (25-34) pg MCHC (32-36) g/dL RDW Std Deviation (36.4-46.3) fL RDW Coeff of Blaise (11.5-14.5) % Plt Count (130-400) K/uL MPV (7.4-10.4) fL Immature Gran % (Auto) % Neut % (Auto) % Lymph % (Auto) % Barton % (Auto) % Eos % (Auto) % Baso % (Auto) % Neut # (Auto) (1.4-6.5) K/uL Lymph # (Auto) (1.2-3.4) K/uL [place] # (Auto) (0.11-0.59) K/uL Eos # (Auto) (0-0.5) K/uL Baso # (Auto) (0-0.2) K/uL Immature Gran # (Auto) (0.00-0.02) K/uL Absolute Nucleated RBC (0-0) K/uL Nucleated RBC % (auto) % Hypochromasia Poikilocytosis Basophilic Stippling Microcytosis Ovalocytes Sodium (136-145) mmol/L Potassium (3.5-5.1) mmol/L Chloride (98-107) mmol/L Carbon Dioxide (21-32) mmol/L Anion Gap (3-11) BUN (7-18) mg/dl Creatinine (0.6-1.2) mg/dl Est Cr Clr Drug Dosing Est GFR ( Amer) ml/min Est GFR (Non-Af Amer) ml/min BUN/Creatinine Ratio (10-20) Glucose (70-99) mg/dl Calcium (8.5-10.1) mg/dl Magnesium (1.8-2.4) mg/dl Total Bilirubin (0.2-1) mg/dl Direct Bilirubin (0-0.2) mg/dl AST (15-37) U/L ALT (12-78) U/L Alkaline Phosphatase (45-117) U/L Troponin I (0-0.045) ng/ml Total Protein (6.4-8.2) gm/dl Albumin (3.4-5.0) gm/dl Lipase (73-393) U/L Urine Color Urine Appearance (Clear) Urine pH (4.5-7.5) Ur Specific [place] (1.000-1.030) Urine Protein (Negative) Urine Glucose (UA) (Negative) Urine Ketones (Negative) Urine Blood (Negative) Urine Nitrite (Negative) Urine Bilirubin (Negative) Urine Urobilinogen (Negative) Ur Leukocyte Esterase (Negative) Urine WBC (Auto) (0-5) /hpf Urine RBC (Auto) (0-4) /hpf U Hyaline Cast (Auto) (0-5) /lpf U Epithel Cells (Auto) (0-5) /lpf Urine Bacteria (Auto) (Negative) Urine Opiates Screen Neg (Neg) Ur Methadone, Qual Neg (Neg) Urine Barbiturates Neg (Neg) Ur Phencyclidine (PCP) Neg (Neg) U Amphetamin/Meth Scrn Neg (Neg) MDMA (Ecstasy) Screen Neg (Neg) U Benzodiazepines Scrn Neg (Neg) Ur Cocaine Metabolite Neg (Neg) U Marijuana (THC) Screen Neg (Neg) Ethyl Alcohol mg/dL (0-3) mg/dl COVID-19 Eval Order SARS-CoV-2 (PCR) (Negative) Administered Medications Discontinued Medications Sodium Chloride (Nss 1000ml) 500 mls @ 999 mls/hr IV .Q31M ONE Stop: 06/03/21 14:02 Last Infusion: 06/03/21 14:47 Dose: 0 mls/hr Documented by: [id number] Admin: 06/03/21 14:09 Dose: 999 mls/hr Documented by: [id number] Imaging Data Radiologist's Impression: Head CT 06/03/21 13:32 CT OF THE HEAD WITHOUT CONTRAST CLINICAL HISTORY: Altered mental status. COMPARISON STUDY: Head CT February 06, 2021. CT DOSE: 614.27 mGy.cm TECHNIQUE: Helical axial images of the head were obtained without IV contrast. Automated exposure control was utilized for the study. A dose lowering technique was utilized adhering to the principles of ALARA. FINDINGS: No acute intracranial hemorrhage, midline shift or mass effect is present. The ventricular system is stable. White matter hypodensities are unchanged and suggest small vessel disease. There is bilateral basal ganglia calcification. The basal cisterns are patent. No extra-axial collections are present. There are no findings to suggest acute dural sinus thrombosis or acute territorial infarct. No significant calvarial abnormalities are present. Visualized portions of the sinuses and mastoid air cells are clear. IMPRESSION: No acute intracranial findings. No change in appearance of the brain. ACT 112: Negative or not required by law. Electronically signed by: Manuelito Martínez M.D. 06/03/2021 2:52 PM Chest X-Ray 06/03/21 13:33 XR chest 1V portable CLINICAL HISTORY: weakness, syncope COMPARISON STUDY: Chest radiograph September 24, 2020. FINDINGS: Lung volumes are normal. Lungs are clear. There is no pneumothorax or pleural effusion. Cardiac size is normal. Mediastinal contours are normal. There is no evidence for pulmonary edema. Multiple old bilateral rib fractures are inc identally noted. IMPRESSION: No acute cardiopulmonary findings. ACT 112: Negative or not required by law. Electronically signed by: Manuelito Martínez M.D. 06/03/2021 1:49 PM Discharge Plan Visit Data Chief Complaint: Unresponsive ED Provider: Dennis Wiley Discharge Problem: Unresponsive episode, Slurred speech, Acute confusion Forms Stand Alone Forms: On License Of [facility] Prescriptions Prescriptions: No Action diltiazem HCl 240 mg capsule,extended release 24hr 240 mg PO QPM Qty: 90 RF: 3 metoprolol succinate 50 mg tablet extended release 24 hr 50 mg PO DAILY Qty: 90 RF: 3 rivastigmine tartrate 1.5 mg capsule 1.5 mg PO BID Qty: 60 RF: 2 atorvastatin 40 mg tablet 80 mg PO DAILY Qty: 180 RF: 3 levothyroxine 50 mcg tablet 50 mcg PO DAILY Qty: 90 RF: 3 lorazepam 0.5 mg tablet See Rx Instructions PO DAILY PRN (Reason: anxiety) Qty: 45 RF: 2 Hold Instructions: plan reduction 0.25 mg qam and 0.5 mg qpm for 1 month lisinopril 40 mg tablet 40 mg PO DAILY Qty: 90 RF: 3 memantine [Namenda] 5 mg tablet 5 mg PO QAM 30 Days Qty: 30 RF: 0 sertraline 100 mg tablet 150 mg PO DAILY Qty: 90 RF: 1 omeprazole 20 mg capsule,delayed release(DR/EC) 20 mg PO QAM Qty: 90 RF: 1 (DME) pen needle, diabetic [Comfort EZ Pen [place]] 31 gauge x 5/16" needle See Rx Instructions .ROUTE .MEDSUPPLY Qty: 400 RF: 1 (DME) lancets [OneTouch Delica Lancets] 30 gauge misc See Rx Instructions .ROUTE .MEDSUPPLY Qty: 100 RF: 0 insulin aspart U-100 [Novolog Flexpen U-100 Insulin] 100 unit/mL (3 mL) insulin pen 2 - 8 unit subcut UD PRN (Reason: hyperglycemia) Qty: 3 RF: 0 cyanocobalamin (vitamin B-12) 1,000 mcg tablet 1,000 mcg PO DAILY Qty: 90 RF: 0 glucagon 1 mg/0.2 mL auto-injector 1 mg subcut ONCE PRN (Reason: low blood sugar) RF: 0 (DME) OneTouch Ultra Test Strip See Rx Instructions .Route RF: 0 quetiapine 50 mg tablet 50 mg PO BID Qty: 60 RF: 2 acetaminophen 500 mg capsule 500 mg PO Q6H PRN (Reason: Pain) RF: 0 Lantus Solostar U-100 Insulin 100 unit/mL (3 mL) insulin pen 15 unit SC QAM RF: 0 Referrals Referrals: Shahzad Wise, [Primary Care Provider] -
[2021-06-03 13:50] LABS: Basophils # (auto) 0.01 K/uL (0-0.2); Basophils % (auto) 0.1 %; Eosinophils # (auto) 0.11 K/uL (0-0.5); Eosinophils % (auto) 1.6 %; Hematocrit (blood only) 28.6 % (37-47); Immature Granulocytes # (auto) 0.03 K/uL (0.00-0.02); Immature Granulocytes % (auto) 0.4 %; Lymphocytes % (auto) 21.6 %; Mean Corpuscular Hemoglobin 20.5 pg (25-34); Mean Corpuscular Hgb Conc 31.5 g/dL (32-36); Mean Corpuscular Volume 65.3 fL (80-100); Mean Platelet Volume 10.7 fL (7.4-10.4); Monocytes # (auto) 0.68 K/uL (0.11-0.59); Monocytes % (auto) 9.8 %; Neutrophils # (auto) 4.62 K/uL (1.4-6.5); Neutrophils % (auto) 66.5 %; Nucleated RBC # (auto) 0.03 K/uL (0-0); Nucleated RBC % (auto) 0.5 %; Platelet Count 231 K/uL (130-400); RDW Coefficient of Variation 15.8 % (11.5-14.5); RDW Standard Deviation 37.2 fL (36.4-46.3); Red Blood Count 4.38 M/uL (4.2-5.4); White Blood Count 6.95 K/uL (4.8-10.8)
--- NOTE | 2021-06-03 13:50 | XRay Report ---
XR chest 1V portable CLINICAL HISTORY: weakness, syncope COMPARISON STUDY: Chest radiograph September 24, 2020. FINDINGS: Lung volumes are normal. Lungs are clear. There is no pneumothorax or pleural effusion. Car diac size is normal. Mediastinal contours are normal. There is no evidence for pulmonary edema. Multi ple old bilateral rib fractures are incidentally noted. IMPRESSION: No acute cardiopulmonary findings. ACT 112: Negative or not required by law. Electronically signed by: Manuelito Martínez M.D. 06/03/2021 1:49 PM
[2021-06-03 14:07] LABS: Alanine Aminotransferase 41 U/L (12-78); Albumin Level 3.1 gm/dl (3.4-5.0); Aspartate Aminotransferase 52 U/L (15-37); BUN Creatinine Ratio 19.2 (10-20); Bilirubin Direct 0.2 mg/dl (0-0.2); Blood Urea Nitrogen 23 mg/dl (7-18); Carbon Dioxide 28 mmol/L (21-32); Chloride 106 mmol/L (98-107); Est GFR (African American) 46.9 ml/min; Est GFR (Non-African American) 40.5 ml/min; Glucose 186 mg/dl (70-99); Lipase 132 U/L (73-393); Magnesium 1.8 mg/dl (1.8-2.4); Potassium 4.7 mmol/L (3.5-5.1); Sodium 139 mmol/L (136-145)
[2021-06-03 14:12] LABS: Alkaline Phosphatase 116 U/L (45-117); Bilirubin,Total 0.7 mg/dl (0.2-1); Total Protein 6.3 gm/dl (6.4-8.2); Troponin I < 0.015 ng/ml (0-0.045)
[2021-06-03 14:15] LABS: Basophilic Stippling 1+; Hypochromasia Present; Microcytosis Present; Ovalocytes 1+; Poikilocytosis Present
--- NOTE | 2021-06-03 14:53 | CT Scan Report ---
CT OF THE HEAD WITHOUT CONTRAST CLINICAL HISTORY: Altered mental status. COMPARISON STUDY: Head CT February 06, 2021. CT DOSE: 614.27 mGy.cm TECHNIQUE: Helical axial images of the head were obtained without IV contrast. Automated exposure con trol was utilized for the study. A dose lowering technique was utilized adhering to the principles o f ALARA. FINDINGS: No acute intracranial hemorrhage, midline shift or mass effect is present. The ventricular system is stable. White matter hypodensities are unchanged and suggest small vessel disease. There is bilateral basal ganglia calcification. The basal cisterns are patent. No extra-axial collections are present. There are no findings to suggest acute dural sinus thrombosis or acute territorial infarct. No significant calvarial abnormalities are present. Visualized portions of the sinuses and mastoid a ir cells are clear. IMPRESSION: No acute intracranial findings. No change in appearance of the brain. ACT 112: Negative or not required by law. Electronically signed by: Manuelito Martínez M.D. 06/03/2021 2:52 PM
[2021-06-03 15:47] LABS: Appearance Urine Cloudy (Clear); Bacteria Urine Automated 4+ (Negative); Bilirubin Urine Negative (Negative); Blood Urine Negative (Negative); Color Urine Yellow; Epithelial Cell Urine Auto >30 /lpf (0-5); Glucose Urine UA Trace (Negative); Ketones Urine Negative (Negative); Leukocyte Esterase Urine 2+ (Negative); Nitrite Urine Negative (Negative); Protein Urine Trace (Negative); Specific Gravity Urine 1.009 (1.000-1.030); Urobilinogen Urine Negative (Negative)
[2021-06-03 16:06] LABS: Amphetamines+Metham, Urine Neg (Neg); Barbiturates, Urine Neg (Neg); Benzodiazepine, Urine Neg (Neg); Cocaine, Urine Neg (Neg); MDMA (Ecstacy), Urine Neg (Neg); Methadone, Urine Neg (Neg); Opiate, Urine Neg (Neg); Phencyclidine, Urine Neg (Neg)
[2021-06-03 16:14] LABS: RBC Urine Automated 0-4 /hpf (0-4)
[2021-06-03] MEDS ORDERED: LORazepam 0.5 MG TAB PO PRN (17:17)
--- NOTE | 2021-06-03 17:32 | History & Physical Report ---
Date of Service June 03, 2021 Assessment & Plan (1) Unresponsive episode: Plan: Patient was found unresponsive. Unsure what the cause was. Patient though was not hypoglycemic. Unsure how long patient was unconscious as she was not seen for 2 hours. Not a tPA candidate as out of window. CT scan of head is negative will place on back tufter. Daughter Marcelina is not looking for aggressive treatment Though she would like a Neurologist involed to assess severity of her dementia and to bring light to what ay have caused her syncope. Given her hallucinations, this may be severe. Delirium may also be exacerbating her symptoms though. Explained to daughter risk of her being in the hospital as it could make her delirium worse. Daughter is interested in pursuing Palliative care. Patient has a dirty urine but no symptoms. will hold treating and will monitor patient. (2) Slurred speech: Plan: This appears o be an ongoing issue and is chronic. It has been gradually getting worse. (3) Dementia: Plan: as stated above on memantine (4) Diabetes type 2, uncontrolled: Plan: appears to be uncontrolled. will consult glycemic control (5) Hypothyroidism: Plan: resume home meds (6) Hyperlipidemia: Plan: continue statin (7) Hypertension: Plan: continue home meds appears above goal. (8) GERD (gastroesophageal reflux disease): Plan: resume home meds (9) Chronic kidney disease: Plan: ACUTE KIDNEY INJURY Slightly elevated. will place on 1 liter of IVF and recheck in am History of Present Illness Chief Complaint: Syncope Primary Care Provider: Shahzad Wise, DO 85 yo female who is a poor historian This is a pleasant 85-year-old female who lives with her daughter has longstanding history of dementia and has recently been hallucinating for the past 2 months. Daughter has been taking the patient to see Dr. Wise and he has been managing her dementia. Patient today was in her living room and was her "normal self." When the daughter returned to see the patient at 12:30 PM, the patient was found sitting at the kitchen table and had her face planted in her food. The daughter also noticed that there was "stuff coming out of her nose and mouth." She described it as a green mucus". She called the ambulance. Found that her blood suagr was in the 200s. Daughter was then concerned for a possible stroke and came to the hospital via ambulance. Marcelian reports that the patient has been noncompliant with her diabetic diet and really enjoys her sweets. Her blood sugars have been elevated mainly in 200s, even in 500-600 range. The ER provider was very concerned about her slurred speech and was thinking about perhaps that she was having a stroke. Daughter though states that her slow speech has been ongoing since April of last year and this has been pr ogressively getting worse. Daughter states that she is interested in palliative care and her ultimate goals are to have her mother comfortable. She would prefer that she could go back home but is not sure if she could take care of her. She is interested in perhaps getting physical therapy and a neurologist involved. Patient has been having some difficulty swallowing that started notes that she it takes a long time for her just to swallow but she does have food in her mouth for minutes and then decides to swallow. She has had some weight loss over the past 6 months as well daughter was unable unable to quantify how much done. She attributes this to the of the patient's son who this past year from [facility]. Allergies Allergy/AdvReac Type Severity Reaction Status Date / Time clarithromycin Allergy Unknown Unknown Verified 06/03/21 15:47 Penicillins Allergy Unknown AMOXICILLIN Verified 06/03/21 15:47 amoxicillin Allergy Unknown Verified 06/03/21 15:47 fenofibrate [From Tricor] Allergy Unknown Verified 06/03/21 15:47 gemfibrozil [From Lopid] Allergy Unknown Verified 06/03/21 15:47 triamcinolone [From Nasacort] Allergy Unknown Verified 06/03/21 15:47 dulaglutide [From Trulicity] AdvReac Severe Nausea Verified 06/03/21 15:47 semaglutide [From Ozempic] AdvReac Severe Nausea Verified 06/03/21 15:47 oseltamivir [From Tamiflu] AdvReac Intermediate GI upset Verified 06/03/21 15:47 venlafaxine AdvReac Intermediate Dizziness Verified 06/03/21 15:47 escitalopram [From Lexapro] AdvReac Unknown "falls" Verified 06/03/21 15:47 nitrofurantoin AdvReac nausea/vomi Verified 06/03/21 15:47 ting Home Medications Medication Instructions Recorded Confirmed Type cyanocobalamin (vitamin B-12) 1,000 mcg PO DAILY #90 tab 02/04/19 06/03/21 History 1,000 mcg tablet acetaminophen 500 mg capsule 500 mg PO Q6H PRN 04/28/20 06/03/21 History glucagon 1 mg/0.2 mL subcutaneous 1 mg SUBCUT ONCE PRN ml 11/21/20 06/03/21 History auto-injector insulin glargine 100 unit/mL (3 15 unit SC QAM ml 12/15/20 06/03/21 History mL) subcutaneous pen (Lantus Solostar U-100 Insulin) diltiazem HCl 240 mg 240 mg PO QPM #90 cap 01/23/21 06/03/21 Rx capsule,extended release 24 hr metoprolol succinate 50 mg 50 mg PO DAILY #90 tab 01/23/21 06/03/21 Rx tablet,extended release 24 hr [facility] 05/[facility] History Ultra Test) quetiapine 50 mg tablet 50 mg PO BID #60 tab 05/08/21 06/03/21 Rx atorvastatin 40 mg tablet 80 mg PO DAILY #180 tab 05/09/21 06/03/21 Rx levothyroxine 50 mcg tablet 50 mcg PO DAILY #90 tab 05/09/21 06/03/21 Rx rivastigmine tartrate 1.5 mg 1.5 mg PO BID #60 cap 05/09/21 06/03/21 Rx capsule lorazepam 0.5 mg tablet See Rx Instructions PO DAILY PRN 05/15/21 06/03/21 Rx #45 tab lisinopril 40 mg tablet 40 mg PO DAILY #90 tab 05/30/21 06/03/21 Rx memantine 5 mg tablet (Namenda) 5 mg PO QAM 30 Days #30 tab 05/30/21 06/03/21 Rx omeprazole 20 mg capsule,delayed 20 mg PO QAM #90 cap 05/30/21 06/03/21 Rx release sertraline 100 mg tablet 150 mg PO DAILY #90 tab 05/30/21 06/03/21 Rx insulin aspart U-100 100 unit/mL 2 - 8 unit SUBCUT UD PRN #3 ml 06/01/21 06/03/21 Rx (3 mL) subcutaneous pen (Novolog Flexpen U-100 Insulin aspart) lancets 30 gauge ([facility] ea 06/01/21 Rx Lancets) pen needle, diabetic 31 gauge x #400 ea 06/01/21 Rx 5/16" (Comfort EZ Pen [place]) Past Med/Surg History Medical History Acute UTI (urinary tract infection) AMS (altered mental status) Chronic kidney disease Chronic low back pain Compression fracture of body of thoracic vertebra Diabetes mellitus, type II Gait instability GERD (gastroesophageal reflux disease) Glaucoma History of basal cell carcinoma Hyperlipidemia Hypertension Hypoglycemia associated with type 2 diabetes mellitus Hypothyroidism Lumbar pain Microcytic anemia Mood disorder Osteopenia Sensorineural hearing loss Sensorineural hearing loss of both ears Thalassemia minor Vitamin B12 deficiency Vitamin D insufficiency Surgical History H/O thumb surgery S/P cholecystectomy S/P tonsillectomy Family History Sister Cancer Family/Other Hearing loss Hypertension Allergies Heart disease Asthma Other No family history of adverse response to anesthesia No family history of bleeding disorder Denies family history of Ovarian cancer Prostate cancer Myocardial infarction Breast cancer Colorectal cancer Social History Smoking Status: Never smoker Hx Alcohol Use: No Hx Substance Use: No Preferred Language: [place]i Communication Ability: Effective Visual Impairment: No Limitations Hearing Ability: Normal Door Hanger Required: No Beliefs That Will Affect Care: None marital status: / Current Living Situation: Family Current Living Situation Comment: w/ daughter current occupational status: retired Feels Safe at Home: Yes Safety Concerns: Feels Safe At This Time Dental Care, Regularly: Yes Physical Activity Frequency Comment: Regularly Seatbelt Use: always Assistive Devices: Walker Review of Systems Review of Systems: Unobtainable due to cognitive status Physical Exam Physical Exam: Constitutional: WD/WN, vitals as above Eyes: EOM intact bilaterally; no conjunctival abnormality ENMT: external ear and nose normal, oropharynx normal Neck: trachea midline, no thyromegaly normal visual inspection Respiratory: normal respiratory effort, lungs clear to auscultation no respiratory distress Cardiovascular: RRR, no murmur, no edema Gastrointestinal (Abdomen): Inspection/Auscultation: abdomen normal to inspection; abdomen not distended Musculoskeletal: no cyanosis or clubbing, extremities motor strength 5/5 Skin: no rashes, warm and dry Neurologic: moves all extremities and awake Psychiatric: Orientation: alert, oriented only to person and cooperative Results & Data Results & Data ([facility]) Vital Signs (Past 12 Hours) Vital Signs Temp Pulse Resp BP Pulse Ox 06/03/21 16:30 58 L 13 100 06/03/21 16:00 57 L 15 97 06/03/21 15:30 60 23 96 06/03/21 15:00 59 L 18 100 06/03/21 14:30 55 L 16 166/93 H 100 06/03/21 14:00 71 6 L 99 06/03/21 13:33 57 L 16 100 06/03/21 13:12 36.4 C L 56 L 20 130/97 92 PG Care Time/CCT Total # of Minutes Spent Total Time Spent with Patient: Total time spent is greater than 50% in coordination of care (as documented) at patient's floor/unit and/or counseling patient: Coding Level of Care Code 29533 Initial Inpt Care Lvl 3 Diagnoses Unresponsive episode R41.89 Slurred speech R47.81 Dementia F03.90 Diabetes type 2, uncontrolled E11.65 Hypothyroidism E03.9 Hyperlipidemia E78.5 Hypertension I10 GERD (gastroesophageal reflux disease) K21.9 Chronic kidney disease N18.9
[2021-06-03] MEDS ORDERED: PHARMACY GLYCEMIC MGMT CONSULT PRN (17:40)
[2021-06-03] MEDS ORDERED: ACETAMINOPHEN 325 MG TAB PO PRN (17:40)
[2021-06-03] MEDS ORDERED: GLUCOSE 40% GEL 15 GM TUBE PO PRN (20:15)
[2021-06-03] MEDS ORDERED: GLUCAGON FOR INJ 1 MG VIAL IM PRN (20:15)
[2021-06-03] MEDS ORDERED: GLUCOSE 10 TABS/TUBE PO PRN (20:15)
[2021-06-03] MEDS: dilTIAZem HCL 240 MG CAPCR PO SCH (21:09)
[2021-06-03] MEDS: QUEtiapine FUMARATE 25 MG TABLET PO SCH (21:10)
[2021-06-03] MEDS: RIVASTIGMINE TARTRATE 1.5 MG CAP PO SCH (21:11)
[2021-06-03] MEDS: INSULIN ASPART 100 UNITS/ML 3 ML PEN SC SCH (21:12)
[2021-06-03] MEDS ORDERED: SODIUM CHLORIDE 0.9% 1000ML 1,000 ML IV SCH (23:00)
[2021-06-04 05:58] LABS: Hematocrit (blood only) 29.1 % (37-47); Mean Corpuscular Hemoglobin 20.4 pg (25-34); Mean Corpuscular Hgb Conc 30.9 g/dL (32-36); Mean Platelet Volume 10.5 fL (7.4-10.4); Platelet Count 229 K/uL (130-400); RDW Coefficient of Variation 15.7 % (11.5-14.5); RDW Standard Deviation 37.7 fL (36.4-46.3); Red Blood Count 4.41 M/uL (4.2-5.4); White Blood Count 6.67 K/uL (4.8-10.8)
[2021-06-04 06:35] LABS: BUN Creatinine Ratio 20.1 (10-20); Calcium 8.4 mg/dl (8.5-10.1); Creatinine Clr Calc Pharmacy 26.7 ml/min; Est GFR (African American) 56.3 ml/min; Est GFR (Non-African American) 48.6 ml/min
[2021-06-04 06:46] LABS: Thyroid Stimulating Hormone 15.7 uIu/ml (0.300-4.500)
[2021-06-04] MEDS: ATORVASTATIN 40 MG TAB PO SCH (08:22)
[2021-06-04] MEDS: PANTOprazole 40 MG TAB PO SCH (08:22)
[2021-06-04] MEDS: CYANOCOBALAMIN 500 MCG TABLET (VITAMIN B-12) PO SCH (08:22)
[2021-06-04] MEDS: RIVASTIGMINE TARTRATE 1.5 MG CAP PO SCH ×2 (08:22→20:07)
[2021-06-04] MEDS: lisinopril 40 MG TAB PO SCH (08:22)
[2021-06-04] MEDS: METOPROLOL SUCC 50MG EXT REL TAB PO SCH (08:22)
[2021-06-04] MEDS: QUEtiapine FUMARATE 25 MG TABLET PO SCH ×2 (08:22→20:06)
[2021-06-04] MEDS: SERTRALINE HCL 50 MG TABLET PO SCH (08:22)
[2021-06-04] MEDS: INSULIN ASPART 100 UNITS/ML 3 ML PEN SC SCH ×4 (08:26→21:03)
[2021-06-04] MEDS ORDERED: LEVOTHYROXINE SODIUM 50 MCG TABLET PO SCH (09:00)
[2021-06-04] MEDS ORDERED: MEMANTINE HCL 5 MG TAB PO SCH (09:00)
[2021-06-04] MEDS ORDERED: INSULIN GLARGINE SOLOSTAR 100 UNITS/ML 3 ML PEN SC SCH (09:00)
--- NOTE | 2021-06-04 10:39 | Neurology Consultation ---
Date of Consultation June 04, 2021 Assessment & Plan (1) Unresponsive episode: (2) Visual hallucinations: (3) Dementia: (4) Depression with anxiety: This patient had a unresponsive episode mid day June 03 with no witnessed seizure activity. She is back to baseline this morning and has had no syncope or near syncope since. She has no significant cardiac dysrhythmias although she has some Sinus bradycardia times in the 50s. The patient has a progressive dementia, progressive visual hallucinations, and some cognitive fluctuations with daytime sleepiness and occasional disorganized speech. She fluctuates with good and bad days quite a bit according to family. She has poor attention skills and has apathy and a history of anxiety depression. I do not see any significant extra pyramidal or Parkinson's features I am uncertain if she has any REM sleep disorder issues. 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 Overlap between these conditions can occur frequently. Unfortunately was not anything you can specifically due for either 1 of these conditions but I would continue the rivastigmine and memantine for now. I do not believe the patient has had a stroke but I cannot, nevertheless, exclude a small one. Patients with Lewy body dementia can have syncope. I am concerned about the lightheadedness with standing and she may have some orthostasis. She may have a urinary tract infection and she certainly seems to be hypothyroid by lab study. her anemia seems significant but she does have t halassemia. Recommendations: 1. MRI of the brain with without contrast. 2. Consider a overnight polysomnogram/ sleep study as an outpatient to look for REM sleep disorder ( which would be typical of Lewy body dementia). 3. Increase memantine to 5 milligrams twice a day , and continue rivastigmine 1.5 milligrams twice a day, both for cognitive disorder.. 4. continue Seroquel 50 milligrams twice a day for hallucinations as well as sertraline 150 milligrams a day for depression. 5. check B12 and free T4-TSH of over 15 is worrisome. 6. evaluate blood pressure and pulse lying, sitting, and standing for orthostasis Overall, I spent a total of 120 minutes with this case including review of records, review of CT films, direct evaluation the patient bedside, and discussion of the case with the RN and patient at bedside, and the patient's daughter via telephone ( for approximately 30 minutes), as well as Dr. Villalpando including differential diagnosis and treatment options. History of Present Illness Reason for Consultation: Patient is an 85-year-old, who I was asked to see at the request of Dr. Ludwig, for neurologic evaluation regarding syncope and other issues. Patient supplies some of the history but much of the pertinent neurologic history is supplied by her daughter Marcelina, via telephone. This patient has a longstanding history of insulin-dependent diabetes, hypertension, dyslipidemia, hypothyroidism. She also has a history of depression and has seen Dr. Hinson in the past. She has had significant side effects to escitalopram venlafaxine 1 or 2 neuroleptics. Over the last 2 years or so she has had a number of issues of a prominent nature. patient started getting significant memory problems several years ago. She lost all interest in doing the things she normally did. She has always been a person who had a problem with attention and might say inappropriate things but she was very organized in her environment. She had trouble focusing and started getting short-term memory problem progressive nature. This has progressed over the last 2 years, particularly in the last year. She has lost all interest in reading or doing puzzles. She is getting very forgetful particularly since the spring her son of Covid-19. The patient wears depends on as having some trouble with activities of daily living including medication taking and keeping herself clean. She is getting sloppy around her environment which was so in the past. She has been drooling having trouble controlling secretions in the last year.She has been living with her daughter for the last 2 years. Patient has had significant visual hallucinations for at least a year. It may have started as much as 2 years ago. She will see people in detail outside her in the house mac Angelo moles or bugs. They are getting more frequent and they are bothersome to her. The patient has had fluctuations in her symptoms. Some days she will be quite attentive and alert and other day she will be very sleepy and have much worse memory. She has had increased daytime sleepiness and has had some postural instability with falls. Sometimes she gets lightheaded with standing. She does have issues with low sugar at times. She does not have any myoclonus but has restlessness in the legs in the past. She sleeps well at night hand there is no known nocturnal sleep disorder. The patient was seen on June 03 around 10 a.m., by her daughter, doing very well. At 12:30, the daughter found the patient sitting at a table with her head on a plate of food somewhat unresponsive. The daughter felt that the patient was floppy and still. There was no jerking, twitching, or stiffening. She lifted the patient's head and there was not and fluid coming out of her mouth and nose. The patient felt cold. I soon as they laid the patient down on the floor, her eyes started to flutter open and she had a little bit of choking noises. She was breathing quickly and then stated that she was "hungry" blood sugar was 268 at home. She arrived to the emergency room at 1312 on June 03 with a temperature 36.0, pulse 56 and regular, respiratory rate 20, blood pressure 130/97, and O2 saturation 92 percent. She had a significant anemia on lab studies with a glucose of 186. she had no focal findings but did have some slurred speech. She was oriented some. CT scan of the head was unremarkable but showed some old ischemic changes. Chest x-ray was unremarkable. Urine tox screen was unremarkable . TSH was elevated at 15.7. Triglycerides were 168 and total cholesterol 76. Glucose this morning was 288 The patient has had no seizures or episodes overnight and she has been in normal sinus rhythm in the 50s and 60s. Blood pressure this morning is 161/61. The patient herself thinks that she had a low blood sugar and fell and that is why she is in the hospital. She denies other problems and even denies having memory issues. She thinks her daughter accuses her of having conditions that she does not have. Attending Physician: Shelley Villalpando MD Allergies Allergy/AdvReac Type Severity Reaction Status Date / Time clarithromycin Allergy Unknown Unknown Verified 06/03/21 15:47 Penicillins Allergy Unknown AMOXICILLIN Verified 06/03/21 15:47 amoxicillin Allergy Unknown Verified 06/03/21 15:47 fenofibrate [From Tricor] Allergy Unknown Verified 06/03/21 15:47 gemfibrozil [From Lopid] Allergy Unknown Verified 06/03/21 15:47 triamcinolone [From Nasacort] Allergy Unknown Verified 06/03/21 15:47 dulaglutide [From Trulicity] AdvReac Severe Nausea Verified 06/03/21 15:47 semaglutide [From Ozempic] AdvReac Severe Nausea Verified 06/03/21 15:47 oseltamivir [From Tamiflu] AdvReac Intermediate GI upset Verified 06/03/21 15:47 venlafaxine AdvReac Intermediate Dizziness Verified 06/03/21 15:47 escitalopram [From Lexapro] AdvReac Unknown "falls" Verified 06/03/21 15:47 nitrofurantoin AdvReac nausea/vomi Verified 06/03/21 15:47 ting Home Medications Medication Instructions Recorded Confirmed Type cyanocobalamin (vitamin B-12) 1,000 mcg PO DAILY #90 tab 02/04/19 06/03/21 History 1,000 mcg tablet acetaminophen 500 mg capsule 500 mg PO Q6H PRN 04/28/20 06/03/21 History glucagon 1 mg/0.2 mL subcutaneous 1 mg SUBCUT ONCE PRN ml 11/21/20 06/03/21 History auto-injector insulin glargine 100 unit/mL (3 15 unit SC QAM ml 12/15/20 06/03/21 History mL) subcutaneous pen (Lantus Solostar U-100 Insulin) diltiazem HCl 240 mg 240 mg PO QPM #90 cap 01/23/21 06/03/21 Rx capsule,extended release 24 hr metoprolol succinate 50 mg 50 mg PO DAILY #90 tab 01/23/21 06/03/21 Rx tablet,extended release 24 hr blood sugar diagnostic (Bradford heller 05/08/21 History Ultra Test) quetiapine 50 mg tablet 50 mg PO BID #60 tab 05/08/21 06/03/21 Rx atorvastatin 40 mg tablet 80 mg PO DAILY #180 tab 05/09/21 06/03/21 Rx levothyroxine 50 mcg tablet 50 mcg PO DAILY #90 tab 05/09/21 06/03/21 Rx rivastigmine tartrate 1.5 mg 1.5 mg PO BID #60 cap 05/09/21 06/03/21 Rx capsule lorazepam 0.5 mg tablet See Rx Instructions PO DAILY PRN 05/15/21 06/03/21 Rx #45 tab lisinopril 40 mg tablet 40 mg PO DAILY #90 tab 05/30/21 06/03/21 Rx memantine 5 mg tablet (Namenda) 5 mg PO QAM 30 Days #30 tab 05/30/21 06/03/21 Rx omeprazole 20 mg capsule,delayed 20 mg PO QAM #90 cap 05/30/21 06/03/21 Rx release sertraline 100 mg tablet 150 mg PO DAILY #90 tab 05/30/21 06/03/21 Rx insulin aspart U-100 100 unit/mL 2 - 8 unit SUBCUT UD PRN #3 ml 06/01/21 06/03/21 Rx (3 mL) subcutaneous pen (Novolog Flexpen U-100 Insulin aspart) lancets 30 gauge (OneTouch Delica #100 ea 06/01/21 Rx Lancets) pen needle, diabetic 31 gauge x #400 ea 06/01/21 Rx 12/25" (Comfort EZ Pen Eustace) Patient History Medical History Acute UTI (urinary tract infection) AMS (altered mental status) Chronic kidney disease Chronic low back pain Compression fracture of body of thoracic vertebra Diabetes mellitus, type II Gait instability GERD (gastroesophageal reflux disease) Glaucoma History of basal cell carcinoma Hyperlipidemia Hypertension Hypoglycemia associated with type 2 diabetes mellitus Hypothyroidism Lumbar pain Microcytic anemia Long standing. Reported history of thalassemia trait Mood disorder Previously tried venlafaxine, escitalopram, fluoxetine. Osteopenia DEXA (2015) demonstrated lowest t-score of -1.7 of L femur neck. On Ca + Vit D supplementation Sensorineural hearing loss Bilateral, evaluated by audiology (12/28) with recommendation of hearing aids Sensorineural hearing loss of both ears Thalassemia minor Vitamin B12 deficiency Vitamin D insufficiency Taking Vit D supplementation Surgical History H/O thumb surgery S/P cholecystectomy S/P tonsillectomy Family History Sister Cancer Family/Other Hearing loss Hypertension Allergies Heart disease Asthma Other No family history of adverse response to anesthesia No family history of bleeding disorder Denies family history of Ovarian cancer Prostate cancer Myocardial infarction Breast cancer Colorectal cancer Social History Smoking Status: Never smoker Hx Alcohol Use: No Hx Substance Use: No Preferred Language: Latvian Communication Ability: Effective Visual Impairment: No Limitations Hearing Ability: Normal Acquisitions Assistant Required: No Beliefs That Will Affect Care: None marital status: / Current Living Situation: Family Current Living Situation Comment: w/ daughter current occupational status: retired Feels Safe at Home: Yes Safety Concerns: Feels Safe At This Time Dental Care, Regularly: Yes Physical Activity Frequency Comment: Regularly Seatbelt Use: always Assistive Devices: Walker Review of Systems Constitutional: no fever, no fatigue and no weakness Eyes: no diplopia, no eye pain and no worsening vision Ear, Nose, Mouth, Throat: + hearing loss and + dizziness; no ear pain, no tinnitus, no snoring, no hoarseness and no dysphagia Respiratory: no cough and no dyspnea Cardiovascular: no chest pain, no palpitations and no lightheadedness Gastrointestinal: no abdominal pain, no nausea and no vomiting Genitourinary: no dysuria, no urinary frequency and no urinary incontinence Musculoskeletal: no back pain, no neck pain, no radicular pain, no joint pain and no myalgia Integumentary: no rash and no lesions Neurologic: no gait abnormality, no localized weakness, no generalized weakness, no tingling, no numbness, no tremor(s), no abnormal movements, no headache(s), no abnormal speech, no confusion and no memory loss Psychiatric: no depression, no irritability, no anxiety, no difficulty con centrating, no confusion and no hallucinations Endocrine: no fatigue and no flushing Hematologic / Lymphatic: no easy bleeding and no easy bruising Allergy / Immunological: no urticaria and no problem reported Exam (Neuro) Physical Exam: The patient is right-handed. The patient is awake, alert, and attentive. Speech is without any aphasia, but she does have mild dysarthria. The patient can name objects, repeat phrases, a nd has normal spontaneous speech. mood is normal and affect is appropriate. She has issues with long and short-term memory. These have been verified with the patient's daughter. She knew that she was in [facility] and knew the month and the year. She did not know her age the day the date or details regarding yesterday. Pupils are 3 mm bilaterally and reactive to light. Extraocular eye muscles are intact without nystagmus including vertical gaze. Visual acuity and visual [place] seem normal grossly to confrontation. she has no masklike face. I do not believe she has bradykinesia in general specifically. There are no deficits to sensation in the face in all 3 distributions of the fifth cranial nerve bilaterally. Corneal reflexes are positive bilaterally. Facial strength and symmetry was normal bilaterally. Hearing seems decreased bilaterally. Palate moves well without asymmetry. There is normal sternocleidomastoid and trapezius (shoulder shrug) strength bilaterally. Tongue is midline with good strength bilaterally. Neck has a full range of motion without discomfort. There are no cervical bruits bilaterally. There are no cranial or ocular bruits. Heart is without murmur. There is a regular rhythm and rate. Cervical, thoracic, and lumbar spine are nontender to palpation. Gait is narrow based and cautious with some arm swing. Turns are slow. Stance is reasonable eyes open although she feels a little lightheaded. With outstretched arms there is no drift. There are no resting, postural, or action tremors. There is no ataxia with finger to nose testing. There is good facility in the hands. No other abnormal involuntary movements are noted. Motor strength is 5/5 diffusely in the arms bilaterally including deltoids, biceps, triceps, brachioradialis, wrist flexors and extensors, product development specialist, and intrinsic hand muscles. Motor strength is 5/5 diffusely in the legs bilaterally including hip flexors, quadriceps, hamstrings, gastrocnemius, tibialis anterior, tibialis posterior, and Peroneii muscles. Toe extensors are normal and there is good bulk in the extensor digitorum brevis muscles bilaterally. The limbs have good tone without rigidity or spasticity. There is no atrophy noted in the muscles. Muscle bulk is normal, there is no tenderness to palpation, no myotonia to percussion, and no fasciculations seen. Sensory examination is intact to touch and pin throughout all 4 limbs diffusely. Reflexes are 1/4 in the biceps, triceps, brachioradialis, quadriceps, and Achilles tendons bilaterally. There is no clonus bilaterally. Toes are downgoing with plantar stimulation bilaterally. Peripheral pulses are present and of normal quality distally in all 4 limbs. There is no peripheral edema noted in the limbs. Results & Data ([facility]) Vital Signs (Past 12 Hours) Vital Signs Temp Pulse Pulse Resp BP Pulse Ox 06/04/21 07:23 54 L 06/04/21 06:44 36.9 C 71 16 161/61 H 95 06/04/21 04:00 36.8 C 57 L 18 152/51 H 98 06/03/21 23:09 36.7 C 90 17 191/61 H 100 06/03/21 22:19 69 PG Care Time/CCT Total # of Minutes Spent Total Time Spent with Patient: Total time spent is greater than 50% in coordination of care (as documented) at patient's floor/unit and/or counseling patient: Coding Level of Care Code 76480 Initial Inpt Care Lvl 3 Diagnoses Unresponsive episode R41.89 Visual hallucinations R44.1 Dementia F03.90 Depression with anxiety F41.8 Time Spent (min) 120 Comment add modifiers as able
[2021-06-04] MEDS ORDERED: GADOBUTROL 30ML VIAL IV ONE (12:34)
--- NOTE | 2021-06-04 12:49 | Magnetic Resonance Report ---
MR brain wo/w con CLINICAL HISTORY: confusion,hallucinations,dementia TECHNIQUE: Multiplanar and multisequence MR images of the brain were obtained prior to and following administration of gadolinium contrast. Comparison: Comparison is made to MRI brain 04/09/2020 FINDINGS: No abnormal restricted diffusion is identified. Foci of T2 and FLAIR hyperintensity are noted in the paraventricular areas consistent with chronic small vessel ischemic disease. Ex vacuo ventriculomegal y and sulcal enlargement is noted compatible with diffuse encephalomalacia. There is no evidence of a cute intraparenchymal hemorrhage. No extra axial fluid collections are seen. There are no masses, mas s effect, or midline shift. No abnormal enhancement is seen. The corpus callosum, pituitary gland, a nd cerebellar tonsils appear grossly unremarkable. Hyperostosis frontalis is incidentally noted. Flow voids of the major intracranial arterial vessels are identified. The imaged portions of the para nasal sinuses, mastoid air cells, and orbits are unremarkable. IMPRESSION: No acute abnormalities and in particular no evidence of acute infarct. ACT 112: Negative or not required by law. Electronically signed by: Joseph De Dios M.D. 06/04/2021 12:47 PM
--- NOTE | 2021-06-04 14:02 | Pharmacy Report ---
Pharmacy Glycemic Short Note 2 - Date of Service June 04, 2021 - Glycemic Short BSG Results (Last 24 hours): 06/03/21 06/03/21 06/04/21 13:41 19:37 05:34 Glucose 186 H 288 H POC Glucose 168 H 06/04/21 06/04/21 06/04/21 07:40 13:35 13:36 Glucose POC Glucose 258 H 316 H* 296 H OUTPATIENT ANTIDIABETIC REGIMEN: * Lantus 15 units SQ QAM * Novolog 2-8 units UD prn ASSESSMENT: * 85 y/o F admitted for syncope and unresponsiveness with history of Type 2 diabetes managed by basal bolus insulin at home. * Her last dose of basal Lantus at home is unknown. Last night she was ordered Novolog with parameters using wt and stress of 2. * Fasting BSG today = 258 mg/dl. Lantus home dose resumed this AM. Novolog parameters tightened. * However pre-lunch BSG went higher to 316 mg/dl post MRI. 0.1 units/kg of IV regular insulin ordered x 1 and Novolog parameters tightened further. * Pt is known to pharmacy glycemic service from her admission over a year ago. BSGs at that would sometimes go up to 400 mg/dl. Utilized Novolog parameters today similar to previous admission. PLAN FOR INPATIENT GLYCEMIC CONTROL: * Basal insulin * Lantus 15 units SQ QAM * Bolus insulin * NovoLog per scale ACHS or Q6hrs while NPO * Goal Range: Low 110 mg/dL - High 140 mg/dL * Correction Factor: 20 mg/dL/unit * Nutritional / Prandial insulin per carb ratio of 1 unit per 6 grams CHO consumed PLAN FOR DISCHARGE: * TBD
[2021-06-04] MEDS ORDERED: INSULIN HUMAN REGULAR PER UNIT 5 UNITS in SYRINGE 4.95 ML IV ONE (14:15)
--- NOTE | 2021-06-04 16:45 | Hospitalist Progress Note ---
Date of Service June 04, 2021 Assessment & Plan (1) Unresponsive episode: Plan: Patient was found unresponsive, found facedown in her dinner, but without any seizure-like activity. She was laid down on the floor and woke up fairly quickly afterwards and did not seem to have any sort of postictal state. Likely syncope Blood sugar at that time was elevated at 268. Blood pressures have been normal to elevated, CT of the head showed old ischemic changes, chest x-ray negative, urine tox screen negative, and no significant arrhythmias on telemetry since admission. Of note, her TSH was significantly elevated at 15. She is anemic with a hemoglobin of 9.0 but this is not too far from her baseline and she has a history of thalassemia Urinalysis seems to be contaminated with epithelial cells and not consistent with true UTI B12 checked and is normal ECG sinus bradycardia and T wave abnormality in lateral leads, normal intervals although QRS is borderline prolonged Her Seroquel dose has been titrated upwards over the last 2 months to 50 mg p.o. twice daily-perhaps there is some orthostasis She does have an underlying undiagnosed dementia with psychotic features- appreciate neurology consultation-suspects possible Lewy body dementia variant without parkinsonism or a senile dementia of Alzheimer's type with prominent visual hallucinations and cognitive fluctuations. Work-up for stroke has been negative-MRI of the brain negative for stroke -Echocardiogram ordered to look for structural abnormalities could cause syncope -Continue telemetry monitoring -Increase levothyroxine dose to 75 mcg and encouraged her to take this separately from her other medications for better absorption -Check orthostatics-drops from lying to sitting but then goes back up with standing. -Continue to monitor -Neurology also states that patients with Lewy body dementia can also have syncope (2) Slurred speech: Plan: This appears o be an ongoing issue and is chronic. It has been gradually getting worse. Could be related to hypothyroidism though-increasing levothyroxine as above (3) Dementia: Plan: Never formally evaluated-seen by neurology today MRI of the brain with diffuse encephalomalacia but no acute stroke As above, suspects either Lewy body dementia variant without parkinsonism or senile dementia the Alzheimer's type with prominent visual hallucinations and cognitive fluctuations Could be an overlap between these 2 conditions as well Neurology recommends continuing rivastigmine at same dose and increase memantine to 5 mg p.o. twice daily Would need an overnight sleep study as an outpatient to look for REM sleep disorder which would be typical of Lewy body dementia Recommends continuing Seroquel 50 mg p.o. twice daily for hallucinations as well as home sertraline 150 mg once a day for depression keep f/u appointment that was already scheduled with neurology June (4) Diabetes type 2, uncontrolled: Plan: With significant hyperglycemia in the 400s here Hemoglobin A1c pending but previous earlier this year was high at 8.7% -Glycemic control was consulted -Continue basal bolus insulin (5) Hypothyroidism: Plan: TSH elevated at 15 May be contributing to some of her recent symptoms She reports that she takes all 12 her morning pills at the same time Encouraged separation of levothyroxine from the other pills-she may need assistance with this at home -Increase levothyroxine 75 mcg daily Follow TFTs in 4 to 6 weeks (6) Hyperlipidemia: Plan: continue statin (7) Hypertension: Plan: Blood pressures are elevated somewhat here Continue home diltiazem, lisinopril, Toprol-XL Follow DC IV fluids (8) GERD (gastroesophageal reflux disease): Plan: No acute issues Continue home PPI (9) Chronic kidney disease: Plan: With mild elevation of creatinine on admission at 1.21 up from baseline of 0.8 consistent with acute kidney injury Received 1 L normal saline overnight Creatinine this morning is back to baseline Follow BMP (10) Thalassemia minor: Plan: Hemoglobin fairly stable around baseline 9.0 Plan: Prophylaxis for DVT-we will order Lovenox Disposition-continued stay, palliative consultation pending at daughter's request for goals of care discussion, however plans to return home at the time of discharge possibly tomorrow Consult PT/OT to make sure stable for discharge to home Admission and Anticipated Discharge Date Admission Date: June 03, 2021 Subjective Pt feels well. Does not recall any of the events that happened yesterday. She denies feeling lightheaded today, no chest pain or shortness of breath. She tells me that her daughter found her with her face down on her food but she does not remember what happened before that. She does tell me that she has had a couple of other falls recently and thinks that maybe she passed out during those falls as well. She reports that she takes 12 pills every morning and she takes them all together at the same time including her levothyroxine. I discussed her care with the neurologist. Telemetry with normal sinus rhythm with rates in the 50s to 60s. Review of Systems Review of Systems: All systems reviewed & are unremarkable except as noted in HPI & below Physical Exam Constitutional: WD/WN, vitals as above Eyes: PERRL, conjunctivae normal, anicteric sclerae Neck: trachea midline, no thyromegaly Respiratory: normal respiratory effort, lungs clear to auscultation Cardiovascular: RRR, no murmur, no edema Chest (Breasts): Chest: normal inspection of chest Gastrointestinal (Abdomen): normal bowel sounds, soft, nontender, no hepatosplenomegaly Musculoskeletal: Extremities: extremities normal to inspection; no cyanosis and no clubbing Skin: no rashes, warm and dry Neurologic: moves all extremities and awake; no focal motor deficits Psychiatric: Orientation: alert, oriented to person, oriented to place and cooperative Apperance: appropriately dressed Eye Contact: good eye contact Motor Behavior: n EPS and n tremor Speech: normal rate/rhythm/volume of speech Affect: euthymic affect Lymphatic: no lymphedema Results & Data Results & Data ([facility]) Vital Signs (Past 12 Hours) Vital Signs Temp Pulse Pulse Resp BP BP Pulse Ox 06/04/21 16:31 36.7 C 64 18 151/55 H 98 06/04/21 12:17 36.0 C L 77 20 124/74 95 06/04/21 07:23 54 L 06/04/21 06:44 36.9 C 71 16 161/61 H 95 Laboratory Results 06/04/21 06/04/21 06/04/21 Range/Units 20:58 20:41 20:23 WBC (4.8-10.8) K/uL RBC (4.2-5.4) M/uL Hgb (12.0-16.0) g/dL Hct (37-47) % MCV (80-100) fL MCH (25-34) pg MCHC (32-36) g/dL RDW Std Deviation (36.4-46.3) fL RDW Coeff of Blaise (11.5-14.5) % Plt Count (130-400) K/uL MPV (7.4-10.4) fL Sodium (136-145) mmol/L Potassium (3.5-5.1) mmol/L Chloride (98-107) mmol/L Carbon Dioxide (21-32) mmol/L Anion Gap (3-11) BUN (7-18) mg/dl Creatinine (0.6-1.2) mg/dl Est Cr Clr Drug Dosing ml/min Est GFR ( Amer) ml/min Est GFR (Non-Af Amer) ml/min BUN/Creatinine Ratio (10-20) Glucose (70-99) mg/dl POC Glucose 109 H 49 L* 54 L* (70-99) mg/dl Estimat Average Glucose Hemoglobin A1c Calcium (8.5-10.1) mg/dl Triglycerides (0-150) mg/dl Cholesterol (0-200) mg/dl LDL Cholesterol, Calc mg/dl VLDL Cholesterol, Calc mg/dl HDL Cholesterol mg/dl Cholesterol/HDL Ratio Vitamin B12 (193-986) pg/ml TSH (0.300-4.500) uIu/ml 06/04/21 06/04/21 06/04/21 Range/Units 20:01 20:00 16:17 WBC (4.8-10.8) K/uL RBC (4.2-5.4) M/uL Hgb (12.0-16.0) g/dL Hct (37-47) % MCV (80-100) fL MCH (25-34) pg MCHC (32-36) g/dL RDW Std Deviation (36.4-46.3) fL RDW Coeff of Blaise (11.5-14.5) % Plt Count (130-400) K/uL MPV (7.4-10.4) fL Sodium (136-145) mmol/L Potassium (3.5-5.1) mmol/L Chloride (98-107) mmol/L Carbon Dioxide (21-32) mmol/L Anion Gap (3-11) BUN (7-18) mg/dl Creatinine (0.6-1.2) mg/dl Est Cr Clr Drug Dosing ml/min Est GFR ( Amer) ml/min Est GFR (Non-Af Amer) ml/min BUN/Creatinine Ratio (10-20) Glucose (70-99) mg/dl POC Glucose 49 L* 50 L* 277 H (70-99) mg/dl Estimat Average Glucose Hemoglobin A1c Calcium (8.5-10.1) mg/dl Triglycerides (0-150) mg/dl Cholesterol (0-200) mg/dl LDL Cholesterol, Calc mg/dl VLDL Cholesterol, Calc mg/dl HDL Cholesterol mg/dl Cholesterol/HDL Ratio Vitamin B12 (193-986) pg/ml TSH (0.300-4.500) uIu/ml 06/04/21 06/04/21 06/04/21 Range/Units 15:03 13:36 13:35 WBC (4.8-10.8) K/uL RBC (4.2-5.4) M/uL Hgb (12.0-16.0) g/dL Hct (37-47) % MCV (80-100) fL MCH (25-34) pg MCHC (32-36) g/dL RDW Std Deviation (36.4-46.3) fL RDW Coeff of Blaise (11.5-14.5) % Plt Count (130-400) K/uL MPV (7.4-10.4) fL Sodium (136-145) mmol/L Potassium (3.5-5.1) mmol/L Chloride (98-107) mmol/L Carbon Dioxide (21-32) mmol/L Anion Gap (3-11) BUN (7-18) mg/dl Creatinine (0.6-1.2) mg/dl Est Cr Clr Drug Dosing ml/min Est GFR ( Amer) ml/min Est GFR (Non-Af Amer) ml/min BUN/Creatinine Ratio (10-20) Glucose (70-99) mg/dl POC Glucose 417 H* 296 H 316 H* (70-99) mg/dl Estimat Average Glucose Hemoglobin A1c Calcium (8.5-10.1) mg/dl Triglycerides (0-150) mg/dl Cholesterol (0-200) mg/dl LDL Cholesterol, Calc mg/dl VLDL Cholesterol, Calc mg/dl HDL Cholesterol mg/dl Cholesterol/HDL Ratio Vitamin B12 (193-986) pg/ml TSH (0.300-4.500) uIu/ml 06/04/21 06/04/21 06/04/21 Range/Units 11:15 07:40 05:34 WBC (4.8-10.8) K/uL RBC (4.2-5.4) M/uL Hgb (12.0-16.0) g/dL Hct (37-47) % MCV (80-100) fL MCH (25-34) pg MCHC (32-36) g/dL RDW Std Deviation (36.4-46.3) fL RDW Coeff of Blaise (11.5-14.5) % Plt Count (130-400) K/uL MPV (7.4-10.4) fL Sodium (136-145) mmol/L Potassium (3.5-5.1) mmol/L Chloride (98-107) mmol/L Carbon Dioxide (21-32) mmol/L Anion Gap (3-11) BUN (7-18) mg/dl Creatinine (0.6-1.2) mg/dl Est Cr Clr Drug Dosing ml/min Est GFR ( Amer) ml/min Est GFR (Non-Af Amer) ml/min BUN/Creatinine Ratio (10-20) Glucose (70-99) mg/dl POC Glucose 258 H (70-99) mg/dl Estimat Average Glucose Pending Hemoglobin A1c Pending Calcium (8.5-10.1) mg/dl Triglycerides (0-150) mg/dl Cholesterol (0-200) mg/dl LDL Cholesterol, Calc mg/dl VLDL Cholesterol, Calc mg/dl HDL Cholesterol mg/dl Cholesterol/HDL Ratio Vitamin B12 1019 H (193-986) pg/ml TSH (0.300-4.500) uIu/ml 06/04/21 06/04/21 Range/Units 05:34 05:34 WBC 6.67 (4.8-10.8) K/uL RBC 4.41 (4.2-5.4) M/uL Hgb 9.0 L (12.0-16.0) g/dL Hct 29.1 L (37-47) % MCV 66.0 L (80-100) fL MCH 20.4 L (25-34) pg MCHC 30.9 L (32-36) g/dL RDW Std Deviation 37.7 (36.4-46.3) fL RDW Coeff of Blaise 15.7 H (11.5-14.5) % Plt Count 229 (130-400) K/uL MPV 10.5 H (7.4-10.4) fL Sodium 138 (136-145) mmol/L Potassium 4.0 (3.5-5.1) mmol/L Chloride 106 (98-107) mmol/L Carbon Dioxide 30 (21-32) mmol/L Anion Gap 2.0 L (3-11) BUN 21 H (7-18) mg/dl Creatinine 1.04 (0.6-1.2) mg/dl Est Cr Clr Drug Dosing 26.7 ml/min Est GFR ( Amer) 56.3 ml/min Est GFR (Non-Af Amer) 48.6 ml/min BUN/Creatinine Ratio 20.1 H (10-20) Glucose 288 H (70-99) mg/dl POC Glucose (70-99) mg/dl Estimat Average Glucose Hemoglobin A1c Calcium 8.4 L (8.5-10.1) mg/dl Triglycerides 168 H (0-150) mg/dl Cholesterol 76 (0-200) mg/dl LDL Cholesterol, Calc 2 mg/dl VLDL Cholesterol, Calc 34 mg/dl HDL Cholesterol 40 mg/dl Cholesterol/HDL Ratio 2 Vitamin B12 (193-986) pg/ml TSH 15.700 H (0.300-4.500) uIu/ml Diagnostic Findings Brain MRI 06/04/21 11:03 MR brain wo/w con CLINICAL HISTORY: confusion,hallucinations,dementia TECHNIQUE: Multiplanar and multisequence MR images of the brain were obtained prior to and following administration of gadolinium contrast. Comparison: Comparison is made to MRI brain 04/09/2020 FINDINGS: No abnormal restricted diffusion is identified. Foci of T2 and FLAIR hyperintensity are noted in the paraventricular areas consistent with chronic small vessel ischemic disease. Ex vacuo ventriculomegaly and sulcal enlargement is noted compatible with diffuse encephalomalacia. There is no evidence of acute intraparenchymal hemorrhage. No extra axial fluid collections are seen. There are no masses, mass effect, or midline shift. No abnormal enhancement is seen. The corpus callosum, pituitary gland, and cerebellar tonsils appear grossly unremarkable. Hyperostosis frontalis is incidentally noted. Flow voids of the major intracranial arterial vessels are identified. The imaged portions of the paranasal sinuses, mastoid air cells, and orbits are un remarkable. IMPRESSION: No acute abnormalities and in particular no evidence of acute infarct. ACT 112: Negative or not required by law. Electronically signed by: Joseph De Dios M.D. 06/04/2021 12:47 PM PG Care Time/CCT Total # of Minutes Spent Total Time Spent with Patient: Total time spent is greater than 50% in coordination of care (as documented) at patient's floor/unit and/or counseling patient: Coding Level of Care Code 05782 Subseq Hosp Care Lvl 3 Diagnoses Unresponsive episode R41.89 Slurred speech R47.81 Dementia F03.90 Diabetes type 2, uncontrolled E11.65 Hypothyroidism E03.9 Hyperlipidemia E78.5 Hypertension I10 GERD (gastroesophageal reflux disease) K21.9 Chronic kidney disease N18.9 Thalassemia minor D56.3
[2021-06-04] MEDS: MEMANTINE HCL 5 MG TAB PO SCH (20:07)
[2021-06-04] MEDS: dilTIAZem HCL 240 MG CAPCR PO SCH (20:07)
[2021-06-04] MEDS: CARBOHYDRATES FOR HYPOGLYCEMIA PO PRN ×3 (20:07→20:40)
[2021-06-05] MEDS: LEVOTHYROXINE SODIUM 75 MCG TABLET PO SCH (05:32)
--- NOTE | 2021-06-05 05:35 | Electrocardiogram Report ---
Test Reason : Blood Pressure : / mmHG Vent. Rate : 056 BPM Atrial Rate : 056 BPM P-R Int : 152 ms QRS Dur : 112 ms QT Int : 486 ms P-R-T Axes : 063 019 141 degrees QTc Int : 468 ms Poor data quality, interpretation may be adversely affected Sinus bradycardia Possible Anterior infarct (cited on or before 23-JUL-2019) Nonspecific T wave abnormality Abnormal ECG When compared with ECG of 24-SEP-2020 21:00, ST no longer depressed in Inferior leads Confirmed by Mauricio Guevara ([id number]) on 06/05/2021 5:34:59 AM Referred By: REFERRED SELF Confirmed By:Mauricio Guevara
[2021-06-05 06:12] LABS: Basophils # (auto) 0.02 K/uL (0-0.2); Basophils % (auto) 0.3 %; Eosinophils # (auto) 0.19 K/uL (0-0.5); Eosinophils % (auto) 3.2 %; Hematocrit (blood only) 25.8 % (37-47); Hemoglobin 8.2 g/dL (12.0-16.0); Immature Granulocytes # (auto) 0.02 K/uL (0.00-0.02); Immature Granulocytes % (auto) 0.3 %; Lymphocytes # (auto) 2.25 K/uL (1.2-3.4); Lymphocytes % (auto) 37.4 %; Mean Corpuscular Hemoglobin 20.6 pg (25-34); Mean Corpuscular Hgb Conc 31.8 g/dL (32-36); Mean Corpuscular Volume 64.7 fL (80-100); Monocytes # (auto) 0.61 K/uL (0.11-0.59); Monocytes % (auto) 10.1 %; Neutrophils # (auto) 2.92 K/uL (1.4-6.5); Neutrophils % (auto) 48.7 %; Platelet Count 215 K/uL (130-400); RDW Coefficient of Variation 15.9 % (11.5-14.5); RDW Standard Deviation 37.4 fL (36.4-46.3); Red Blood Count 3.99 M/uL (4.2-5.4); White Blood Count 6.01 K/uL (4.8-10.8)
[2021-06-05 06:38] LABS: Acanthocytes 1+; Basophilic Stippling 1+; Ovalocytes 1+
[2021-06-05 06:48] LABS: BUN Creatinine Ratio 14.4 (10-20); Calcium 8.2 mg/dl (8.5-10.1); Creatinine Clr Calc Pharmacy 28.6 ml/min; Est GFR (African American) 60.5 ml/min; Est GFR (Non-African American) 52.2 ml/min; Potassium 4.3 mmol/L (3.5-5.1)
[2021-06-05 06:54] LABS: Tear Drop Cells Occasional
[2021-06-05 06:58] LABS: Estimated Average Glucose 226 mg/dl; Hemoglobin A1C 9.5 % (4.5-5.6)
[2021-06-05] MEDS ORDERED: INSULIN HUMAN REGULAR PER UNIT 4 UNITS in SYRINGE 3.96 ML IV ONE (08:30)
[2021-06-05] MEDS: QUEtiapine FUMARATE 25 MG TABLET PO SCH ×2 (08:41→20:51)
[2021-06-05] MEDS: CYANOCOBALAMIN 500 MCG TABLET (VITAMIN B-12) PO SCH (08:41)
[2021-06-05] MEDS: PANTOprazole 40 MG TAB PO SCH (08:41)
[2021-06-05] MEDS: RIVASTIGMINE TARTRATE 1.5 MG CAP PO SCH ×2 (08:41→20:52)
[2021-06-05] MEDS: lisinopril 40 MG TAB PO SCH (08:41)
[2021-06-05] MEDS: METOPROLOL SUCC 50MG EXT REL TAB PO SCH (08:42)
[2021-06-05] MEDS: SERTRALINE HCL 50 MG TABLET PO SCH (08:42)
[2021-06-05] MEDS: MEMANTINE HCL 5 MG TAB PO SCH ×2 (08:42→20:51)
[2021-06-05] MEDS: ATORVASTATIN 40 MG TAB PO SCH (08:42)
[2021-06-05] MEDS: ENOXAPARIN INJ 40 MG/0.4 ML SYR SQ SCH (08:43)
[2021-06-05] MEDS: INSULIN ASPART 100 UNITS/ML 3 ML PEN SC SCH ×5 (08:44→20:51)
[2021-06-05] MEDS ORDERED: INSULIN GLARGINE SOLOSTAR 100 UNITS/ML 3 ML PEN SC SCH (09:00)
[2021-06-05] MEDS ORDERED: INSULIN PROTOCOL GOAL RANGE ONE (12:00)
[2021-06-05] MEDS ORDERED: SEVERE STRESS LEVEL ONE (12:00)
[2021-06-05] MEDS ORDERED: STAT IV Infusion **Titration per Protocol STA (12:00)
--- NOTE | 2021-06-05 12:00 | Palliative Care Consultation ---
Date of Consultation June 05, 2021 Assessment & Plan (1) Palliative care encounter: I spoke with her daughter, Marcelina, on the phone. She is having a difficult time managing care for Vera at home and does not have additional family to help her. She is looking for help with caring for her mother at home. She is not connected with office of aging. She does not have home care or other support at this time. We discussed goals of care for her mother. She very much wants to care for her at home but needs assistance. She is her medical POA and tells me that Vera has a living will and would not want any life prolonging measures. She is DNR/DNI. She asked about hospice but I do not think that she would meet hospice criteria at this time. Her FAST score is 6C, though she does also have failure to thrive and protein calorie malnutrition. We discussed home care support and also the possibility of [facility] at home with palliative care support as she has [facility] [employer]. She will discuss further with case management. (2) Visual hallucinations: (3) Diabetes type 2, uncontrolled: (4) Dementia: (5) Unresponsive episode: (6) Generalized weakness: History of Present Illness Reason for Consultation: goals of care Requesting Physician: Dr. Ludwig Attending Physician: Riky Manzo MD History of Present Illness 85 yo lady with dementia and diabetes who lives at home with her daughter, Marcelina. She was admitted after being found face down in her plate of food at home. Her daughter immediately checked her blood sugar which was in the 200s. Per Marcelina, she is ambulatory with a cane at home and reasonably independent for ADLs though she does sometimes need direction. She is generally continent but has had some bladder incontinence. Her the patient and her daughter both feel that her appetite is pretty good and she does take supplement shakes, however, she has lost more than 20lbs in the last year. Her daughter reports that she pockets food at times but has not had any coughing or choking or difficulty swallowing. She has, however, had hallucinations and has been very irritable with her daughter at times. She is on sertraline, seroquel, namenda and excelon. Her mental status is variable and as I was visiting her, she was oriented to person, place, and day of the week. She denies pain or discomfort and feels that she is doing well and wants to go home to see her cat. She has had labile blood sugars since admission and is currently being started on an insulin drip. She had an MRI which showed no evidence of bleed or ischemia. It did show diffuse encephalomalacia and some small vessel disease. She is being seen by Dr. Faulkner. Allergies Allergy/AdvReac Type Severity Reaction Status Date / Time clarithromycin Allergy Unknown Unknown Verified 06/03/21 15:47 Penicillins Allergy Unknown AMOXICILLIN Verified 06/03/21 15:47 amoxicillin Allergy Unknown Verified 06/03/21 15:47 fenofibrate [From Tricor] Allergy Unknown Verified 06/03/21 15:47 gemfibrozil [From Lopid] Allergy Unknown Verified 06/03/21 15:47 triamcinolone [From Nasacort] Allergy Unknown Verified 06/03/21 15:47 dulaglutide [From Trulicity] AdvReac Severe Nausea Verified 06/03/21 15:47 semaglutide [From Ozempic] AdvReac Severe Nausea Verified 06/03/21 15:47 oseltamivir [From Tamiflu] AdvReac Intermediate GI upset Verified 06/03/21 15:47 venlafaxine AdvReac Intermediate Dizziness Verified 06/03/21 15:47 escitalopram [From Lexapro] AdvReac Unknown "falls" Verified 06/03/21 15:47 nitrofurantoin AdvReac nausea/vomi Verified 06/03/21 15:47 ting Home Medications Medication Instructions Recorded Confirmed Type cyanocobalamin (vitamin B-12) 1,000 mcg PO DAILY #90 tab 02/04/19 06/03/21 History 1,000 mcg tablet acetaminophen 500 mg capsule 500 mg PO Q6H PRN 04/28/20 06/03/21 History glucagon 1 mg/0.2 mL subcutaneous 1 mg SUBCUT ONCE PRN ml 11/21/20 06/03/21 History auto-injector insulin glargine 100 unit/mL (3 15 unit SC QAM ml 12/15/20 06/03/21 History mL) subcutaneous pen (Lantus Solostar U-100 Insulin) diltiazem HCl 240 mg 240 mg PO QPM #90 cap 01/23/21 06/03/21 Rx capsule,extended release 24 hr metoprolol succinate 50 mg 50 mg PO DAILY #90 tab 01/23/21 06/03/21 Rx tablet,extended release 24 hr [facility] History Ultra Test) quetiapine 50 mg tablet 50 mg PO BID #60 tab 05/08/21 06/03/21 Rx atorvastatin 40 mg tablet 80 mg PO DAILY #180 tab 05/09/21 06/03/21 Rx levothyroxine 50 mcg tablet 50 mcg PO DAILY #90 tab 05/09/21 06/03/21 Rx rivastigmine tartrate 1.5 mg 1.5 mg PO BID #60 cap 05/09/21 06/03/21 Rx capsule lorazepam 0.5 mg tablet See Rx Instructions PO DAILY PRN 05/15/21 06/03/21 Rx #45 tab lisinopril 40 mg tablet 40 mg PO DAILY #90 tab 05/30/21 06/03/21 Rx memantine 5 mg tablet (Namenda) 5 mg PO QAM 30 Days #30 tab 05/30/21 06/03/21 Rx omeprazole 20 mg capsule,delayed 20 mg PO QAM #90 cap 05/30/21 06/03/21 Rx release sertraline 100 mg tablet 150 mg PO DAILY #90 tab 05/30/21 06/03/21 Rx insulin aspart U-100 100 unit/mL 2 - 8 unit SUBCUT UD PRN #3 ml 06/01/21 06/03/21 Rx (3 mL) subcutaneous pen (Novolog Flexpen U-100 Insulin aspart) lancets 30 gauge (OneTouch Delica #100 ea 06/01/21 Rx Lancets) pen needle, diabetic 31 gauge x #400 ea 06/01/21 Rx 5/16" (Comfort EZ Pen [place]el) Patient History Medical History Acute UTI (urinary tract infection) AMS (altered mental status) Chronic kidney disease Chronic low back pain Compression fracture of body of thoracic vertebra Diabetes mellitus, type II Gait instability GERD (gastroesophageal reflux disease) Glaucoma History of basal cell carcinoma Hyperlipidemia Hypertension Hypoglycemia associated with type 2 diabetes mellitus Hypothyroidism Lumbar pain Microcytic anemia Long standing. Reported history of thalassemia trait Mood disorder Previously tried venlafaxine, escitalopram, fluoxetine. Osteopenia DEXA (2015) demonstrated lowest t-score of -1.7 of L femur neck. On Ca + Vit D supplementation Sensorineural hearing loss Bilateral, evaluated by audiology (12/28) with recommendation of hearing aids Sensorineural hearing loss of both ears Thalassemia minor Vitamin B12 deficiency Vitamin D insufficiency Taking Vit D supplementation Surgical History H/O thumb surgery S/P cholecystectomy S/P tonsillectomy Family History Sister Cancer Family/Other Hearing loss Hypertension Allergies Heart disease Asthma Other No family history of adverse response to anesthesia No family history of bleeding disorder Denies family history of Ovarian cancer Prostate cancer Myocardial infarction Breast cancer Colorectal cancer Social History Smoking Status: Never smoker Hx Alcohol Use: No Hx Substance Use: No Preferred Language: Nigerian Communication Ability: Effective Visual Impairment: No Limitations Hearing Ability: Normal Hr Recruiter Required: No Beliefs That Will Affect Care: None marital status: / Current Living Situation: Family Current Living Situation Comment: w/ daughter current occupational status: retired Feels Safe at Home: Yes Dental Care, Regularly: Yes Physical Activity Frequency Comment: Regularly Seatbelt Use: always Assistive Devices: None Review of Systems Review of Systems: [facility] Symptom Assessment Score Pain 0/3 Dyspnea 0/3 Anxiety 1/3 Nausea 0/3 Drowsiness 0/3 Palliative Performance Score 50% Physical Exam Constitutional: + thin and + frail appearing ENMT: Mouth: oral mucous membranes not dry Respiratory: normal respiratory effort; no labored breathing Cardiovascular: Rate/Rhythm: regular rate and regular rhythm Gastrointestinal (Abdomen): nontender Musculoskeletal: Extremities: + muscle atrophy Neurologic: moves all extremities and awake Psychiatric: Orientation: oriented x 3 Results & Data ([facility]) Vital Signs (Past 12 Hours) Vital Signs Temp Pulse Pulse Resp BP Pulse Ox 06/05/21 11:50 98.4 F 64 16 110/48 L 94 06/05/21 07:20 61 06/05/21 07:14 98.6 F 60 18 183/69 H 97 06/05/21 02:55 98.4 F 68 18 111/56 L 93 PG Care Time/CCT Total # of Minutes Spent Total Time Spent: 60 Total Time Spent with Patient: Total time spent is greater than 50% in coordination of care (as documented) at patient's floor/unit and/or counseling patient: goals of care, hospice, family education and support Coding Level of Care Code 29240 Initial Inpt Care Lvl 2 Diagnoses Palliative care encounter Z51.5 Visual hallucinations R44.1 Diabetes type 2, uncontrolled E11.65 Dementia F03.90 Unresponsive episode R41.89 Generalized weakness R53.1
[2021-06-05] MEDS ORDERED: INSULIN REGULAR 250 UNITS in SODIUM CHLORIDE 0.9% 247.5 ML IV SCH (12:05)
[2021-06-05] MEDS ORDERED: INSULIN HUMAN REGULAR IV BOLUS 1.5 UNITS in SYRINGE 0 ML IV ONE (12:15)
--- NOTE | 2021-06-05 13:30 | Pharmacy Report ---
Pharmacy Glycemic Short Note 2 - Date of Service June 05, 2021 - Glycemic Short BSG Results (Last 24 hours): 06/04/21 06/04/21 06/04/21 13:35 13:36 15:03 Glucose POC Glucose 316 H* 296 H 417 H* 06/04/21 06/04/21 06/04/21 16:17 20:00 20:01 Glucose POC Glucose 277 H 50 L* 49 L* 06/04/21 06/04/21 06/04/21 20:23 20:41 20:58 Glucose POC Glucose 54 L* 49 L* 109 H 06/05/21 06/05/21 06/05/21 00:01 05:43 08:00 Glucose 278 H POC Glucose 170 H 310 H* 06/05/21 06/05/21 06/05/21 08:01 11:43 11:44 Glucose POC Glucose 354 H* 411 H* 393 H* OUTPATIENT ANTIDIABETIC REGIMEN: * Lantus 15 units SQ QAM * Novolog 2-8 units UD prn ASSESSMENT: 06/05: * BSGs elevated yesterday with one episode of hypoglycemia * BSGs significantly elevated today, attempted to reduce BSG with IV insulin bolus, but lunch BSG of 393 mg/dL * Will utilize IV insulin drip temporarily to safely reduce BSG * Lantus to be changed to BID dosing from daily 06/04: * 85 y/o F admitted for syncope and unresponsiveness with history of Type 2 diabetes managed by basal bolus insulin at home. * Her last dose of basal Lantus at home is unknown. Last night she was ordered Novolog with parameters using wt and stress of 2. * Fasting BSG today = 258 mg/dl. Lantus home dose resumed this AM. Novolog parameters tightened. * However pre-lunch BSG went higher to 316 mg/dl post MRI. 0.1 units/kg of IV regular insulin ordered x 1 and Novolog parameters tightened further. * Pt is known to pharmacy glycemic service from her admission over a year ago. BSGs at that would sometimes go up to 400 mg/dl. Utilized Novolog parameters today similar to previous admission. PLAN FOR INPATIENT GLYCEMIC CONTROL: * IV insulin infusion * Will utilize insulin infusion temporarily in effort to reduce BSG safely * Basal insulin * Lantus 8 units SC this morning * Will give additional 7 units this afternoon to aid in drip transition * Bolus insulin * NovoLog per scale ACHS * Nutritional / Prandial insulin per carb ratio of 1 unit per 6 grams CHO consumed PLAN FOR DISCHARGE: * TBD
[2021-06-05] MEDS ORDERED: INSULIN GLARGINE SOLOSTAR 100 UNITS/ML 3 ML PEN SC ONE (15:15)
--- NOTE | 2021-06-05 15:32 | Hospitalist Progress Note ---
Date of Service June 05, 2021 Assessment & Plan (1) Unresponsive episode: Plan: Patient was found unresponsive, found facedown in her dinner, but without any seizure-like activity. She was laid down on the floor and woke up fairly quickly afterwards and did not seem to have any sort of postictal state. Likely syncope Blood sugar at that time was elevated at 268. Blood pressures have been normal to elevated, CT of the head showed old ischemic changes, chest x-ray negative, urine tox screen negative, and no significant arrhythmias on telemetry since admission. Of note, her TSH was significantly elevated at 15. She is anemic with a hemoglobin of 9.0 but this is not too far from her baseline and she has a history of thalassemia Urinalysis seems to be contaminated with epithelial cells and not consistent with true UTI B12 checked and is normal ECG sinus bradycardia and T wave abnormality in lateral leads, normal intervals although QRS is borderline prolonged Her Seroquel dose has been titrated upwards over the last 2 months to 50 mg p.o. twice daily-perhaps there is some orthostasis She does have an underlying undiagnosed dementia with psychotic features- appreciate neurology consultation-suspects possible Lewy body dementia variant without parkinsonism or a senile dementia of Alzheimer's type with prominent visual hallucinations and cognitive fluctuations. Work-up for stroke has been negative-MRI of the brain negative for stroke. - Echocardiogram ordered to look for structural abnormalities could cause syncope -> Pending - Continue telemetry monitoring - Increase levothyroxine dose to 75 mcg and encouraged her to take this separately from her other medications for better absorption - Checked orthostatics-drops from lying to sitting but then goes back up with standing. - Neurology also states that patients with Lewy body dementia can also have syncope. (2) Slurred speech: Plan: This appears o be an ongoing issue and is chronic. It has been gradually getting worse. Could be related to hypothyroidism though - increasing levothyroxine as above. (3) Dementia: Plan: Never formally evaluated - seen by neurology today. MRI of the brain with diffuse encephalomalacia but no acute stroke. -> As above, suspects either Lewy body dementia variant without Parkinsonism or senile dementia the Alzheimer's type with prominent visual hallucinations and cognitive fluctuations. - Could be an overlap between these 2 conditions as well Neurology recommends continuing rivastigmine at same dose and increase memantine to 5 mg p.o. twice daily. - Would need an overnight sleep study as an outpatient to look for REM sleep disorder which would be typical of Lewy body dementia. - Recommends continuing Seroquel 50 mg p.o. twice daily for hallucinations as well as home sertraline 150 mg once a day for depression. -> Keep f/u appointment that was already scheduled with neurology June. (4) Diabetes type 2, uncontrolled: Plan: With significant hyperglycemia in the 400s here. A1c is 9.5% this admission. - Glycemic control was consulted - Continue basal bolus insulin (5) Hypothyroidism: Plan: TSH elevated at 15 this admission. She reports that she takes all 12 her morning pills at the same time. - Encouraged separation of levothyroxine from the other pills - she may need assistance with this at home. - Increase levothyroxine 75 mcg daily - Follow TFTs in 4 to 6 weeks (6) Hyperlipidemia: Plan: - Continue statin (7) Hypertension: Plan: Blood pressures are elevated somewhat here, but also somewhat labile. BP is 110/50. - Continue home diltiazem, lisinopril, Toprol-XL (8) GERD (gastroesophageal reflux disease): Plan: No acute issues. - Continue home PPI (9) Chronic kidney disease: Plan: With mild elevation of creatinine on admission at 1.21 up from baseline of 0.8 consistent with acute kidney injury. - Creatinine is 1.0 today; nearly baseline. (10) Thalassemia minor: Plan: Hemoglobin fairly stable around baseline 9.0. (11) DVT prophylaxis: Plan: Lovenox 40 mg SQ QAM Admission and Anticipated Discharge Date Admission Date: June 03, 2021 Subjective Doing well today. No complaints. Reports no fevers/chills, chest pain, shortness of breath, abdominal pain, nausea, or vomiting. Physical Exam Constitutional: WD/WN, vitals as above Eyes: EOM intact bilaterally; no conjunctival abnormality ENMT: external ear and nose normal, oropharynx normal Neck: trachea midline, no thyromegaly normal visual inspection Respiratory: normal respiratory effort, lungs clear to auscultation no respiratory distress Cardiovascular: RRR, no murmur, no edema Gastrointestinal (Abdomen): Inspection/Auscultation: abdomen normal to inspection; abdomen not distended Musculoskeletal: no cyanosis or clubbing, extremities motor strength 5/5 Skin: no rashes, warm and dry Neurologic: moves all extremities and awake Psychiatric: Orientation: alert, oriented to person and cooperative Results & Data Results & Data ([facility]) Vital Signs (Past 12 Hours) Vital Signs Temp Pulse Pulse Resp BP Pulse Ox 06/05/21 11:50 36.9 C 64 16 110/48 L 94 06/05/21 07:20 61 06/05/21 07:14 37.0 C 60 18 183/69 H 97 PG Care Time/CCT Total # of Minutes Spent Total Time Spent with Patient: Total time spent is greater than 50% in coordination of care (as documented) at patient's floor/unit and/or counseling patient: Coding Level of Care Code 12770 Subseq Hosp Care Lvl 3 Diagnoses Unresponsive episode R41.89 Slurred speech R47.81 Dementia F03.90 Diabetes type 2, uncontrolled E11.65 Hypothyroidism E03.9 Hyperlipidemia E78.5 Hypertension I10 GERD (gastroesophageal reflux disease) K21.9 Chronic kidney disease N18.9 Thalassemia minor D56.3 DVT prophylaxis Z29.9
--- NOTE | 2021-06-05 17:17 | XCELERA ---
[id number]
[2021-06-05] MEDS ORDERED: PHARMACY GLYCEMIC MGMT CONSULT PRN (19:11)
[2021-06-05] MEDS: DEXTROSE 50% 50 ML SYRINGE IV PRN (20:06)
[2021-06-05] MEDS: dilTIAZem HCL 240 MG CAPCR PO SCH (20:52)
[2021-06-06] MEDS: INSULIN ASPART 100 UNITS/ML 3 ML PEN SC SCH ×8 (00:01→20:44)
[2021-06-06] MEDS: LEVOTHYROXINE SODIUM 75 MCG TABLET PO SCH (05:37)
[2021-06-06] MEDS: CYANOCOBALAMIN 500 MCG TABLET (VITAMIN B-12) PO SCH (08:15)
[2021-06-06] MEDS: QUEtiapine FUMARATE 25 MG TABLET PO SCH ×2 (08:15→20:38)
[2021-06-06] MEDS: ATORVASTATIN 40 MG TAB PO SCH (08:15)
[2021-06-06] MEDS: SERTRALINE HCL 50 MG TABLET PO SCH (08:15)
[2021-06-06] MEDS: lisinopril 40 MG TAB PO SCH (08:15)
[2021-06-06] MEDS: PANTOprazole 40 MG TAB PO SCH (08:16)
[2021-06-06] MEDS: MEMANTINE HCL 5 MG TAB PO SCH ×2 (08:16→20:38)
[2021-06-06] MEDS: RIVASTIGMINE TARTRATE 1.5 MG CAP PO SCH ×2 (08:16→20:38)
[2021-06-06] MEDS: METOPROLOL SUCC 50MG EXT REL TAB PO SCH (08:16)
[2021-06-06] MEDS: ENOXAPARIN INJ 40 MG/0.4 ML SYR SQ SCH (08:16)
[2021-06-06] MEDS: INSULIN GLARGINE SOLOSTAR 100 UNITS/ML 3 ML PEN SC SCH ×2 (08:51→20:42)
[2021-06-06] MEDS ORDERED: INSULIN GLARGINE SOLOSTAR 100 UNITS/ML 3 ML PEN SC ONE (11:30)
[2021-06-06] MEDS ORDERED: INSULIN HUMAN REGULAR PER UNIT 5 UNITS in SYRINGE 4.95 ML IV ONE (11:30)
--- NOTE | 2021-06-06 12:21 | Hospitalist Progress Note ---
Date of Service June 06, 2021 Assessment & Plan (1) Unresponsive episode: Plan: Patient was found unresponsive, found facedown in her dinner, but without any seizure-like activity. She was laid down on the floor and woke up fairly quickly afterwards and did not seem to have any sort of postictal state. Likely syncope Blood sugar at that time was elevated at 268. Blood pressures have been normal to elevated, CT of the head showed old ischemic changes, chest x-ray negative, urine tox screen negative, and no significant arrhythmias on telemetry since admission. Of note, her TSH was significantly elevated at 15. She is anemic with a hemoglobin of 9.0 but this is not too far from her baseline and she has a history of thalassemia Urinalysis seems to be contaminated with epithelial cells and not consistent with true UTI B12 checked and is normal ECG sinus bradycardia and T wave abnormality in lateral leads, normal intervals although QRS is borderline prolonged Her Seroquel dose has been titrated upwards over the last 2 months to 50 mg p.o. twice daily-perhaps there is some orthostasis She does have an underlying undiagnosed dementia with psychotic features- appreciate neurology consultation-suspects possible Lewy body dementia variant without parkinsonism or a senile dementia of Alzheimer's type with prominent visual hallucinations and cognitive fluctuations. Work-up for stroke has been negative-MRI of the brain negative for stroke. - Echocardiogram ordered to look for structural abnormalities could cause syncope -> None noted: EF 60-65%, no valvular issues. Similar to echo in 07/2017. - Continue telemetry monitoring - Increase levothyroxine dose to 75 mcg and encouraged her to take this separately from her other medications for better absorption - Checked orthostatics-drops from lying to sitting but then goes back up with standing. - Neurology also states that patients with Lewy body dementia can also have syncope. (2) Slurred speech: Plan: This appears o be an ongoing issue and is chronic. It has been gradually getting worse. Could be related to hypothyroidism though - increasing levothyroxine as above. (3) Dementia: Plan: Never formally evaluated - seen by neurology today. MRI of the brain with diffuse encephalomalacia but no acute stroke. -> As above, suspects either Lewy body dementia variant without Parkinsonism or senile dementia the Alzheimer's type with prominent visual hallucinations and cognitive fluctuations. - Could be an overlap between these 2 conditions as well Neurology recommends continuing rivastigmine at same dose and increase memantine to 5 mg p.o. twice daily. - Would need an overnight sleep study as an outpatient to look for REM sleep disorder which would be typical of Lewy body dementia. - Recommends continuing Seroquel 50 mg p.o. twice daily for hallucinations as well as home sertraline 150 mg once a day for depression. -> Keep appointment that was already scheduled with neurology. (4) Diabetes type 2, uncontrolled: Plan: With significant hyperglycemia in the 400s here. A1c is 9.5% this admission. - Glycemic control was consulted - Was on insulin gtt on 06/05, now back to basal/bolus. Work with pharmacy on discharge dosing. Per daughter, she has always run quite high. (5) Hypothyroidism: Plan: TSH elevated at 15 this admission. She reports that she takes all 12 her morning pills at the same time. - Encouraged separation of levothyroxine from the other pills - she may need assistance with this at home. - Increase levothyroxine 75 mcg daily - Follow TFTs in 4 to 6 weeks (6) Hyperlipidemia: Plan: - Continue statin (7) Hypertension: Plan: Blood pressures are elevated somewhat here, but also somewhat labile. BP is 120/60. - Continue home diltiazem, lisinopril, Toprol-XL (8) GERD (gastroesophageal reflux disease): Plan: No acute issues. - Continue home PPI (9) Chronic kidney disease: Plan: With mild elevation of creatinine on admission at 1.21 up from baseline of 0.8 consistent with acute kidney injury. - Creatinine was 1.0 on 06/05; baseline. (10) Thalassemia minor: Plan: Hemoglobin fairly stable around baseline 9.0. (11) DVT prophylaxis: Plan: Lovenox 40 mg SQ QAM Admission and Anticipated Discharge Date Admission Date: June 03, 2021 Subjective Doing well today. No complaints. Very much wants to go home. Reports no fevers/chills, chest pain, shortness of breath, abdominal pain, nausea, or vomiting. Physical Exam Constitutional: WD/WN, vitals as above Eyes: EOM intact bilaterally; no conjunctival abnormality ENMT: external ear and nose normal, oropharynx normal Neck: trachea midline, no thyromegaly normal visual inspection Respiratory: normal respiratory effort, lungs clear to auscultation no respiratory distress Cardiovascular: RRR, no murmur, no edema Gastrointestinal (Abdomen): Inspection/Auscultation: abdomen normal to inspection; abdomen not distended Musculoskeletal: no cyanosis or clubbing, extremities motor strength 5/5 Skin: no rashes, warm and dry Neurologic: moves all extremities and awake Psychiatric: Orientation: alert, oriented to person and cooperative Results & Data Results & Data ([facility]) Vital Signs (Past 12 Hours) Vital Signs Temp Pulse Pulse Resp BP BP Pulse Ox 06/06/21 11:07 36.5 C 55 L 18 122/57 L 98 06/06/21 07:35 36.7 C 111 H 18 149/54 H 91 06/06/21 07:10 55 L 06/06/21 03:35 36.8 C 52 L 20 167/63 H 93 PG Care Time/CCT Total # of Minutes Spent Total Time Spent with Patient: Total time spent is greater than 50% in coordination of care (as documented) at patient's floor/unit and/or counseling patient: Coding Level of Care Code 44306 Subseq Hosp Care Lvl 2 Diagnoses Unresponsive episode R41.89 Slurred speech R47.81 Dementia F03.90 Diabetes type 2, uncontrolled E11.65 Hypothyroidism E03.9 Hyperlipidemia E78.5 Hypertension I10 GERD (gastroesophageal reflux disease) K21.9 Chronic kidney disease N18.9 Thalassemia minor D56.3 DVT prophylaxis Z29.9
--- NOTE | 2021-06-06 13:25 | Pharmacy Report ---
Pharmacy Glycemic Short Note 2 - Date of Service June 06, 2021 - Glycemic Short BSG Results (Last 24 hours): 06/05/21 06/05/21 06/05/21 14:05 14:56 16:07 POC Glucose 331 H* 279 H 190 H 06/05/21 06/05/21 06/05/21 17:05 18:01 18:58 POC Glucose 119 H 111 H 99 06/05/21 06/05/21 06/05/21 19:59 20:49 23:47 POC Glucose 73 92 92 06/06/21 06/06/21 06/06/21 03:49 07:19 11:09 POC Glucose 149 H 214 H 351 H* 06/06/21 11:11 POC Glucose 320 H* OUTPATIENT ANTIDIABETIC REGIMEN: * Lantus 15 units SQ QAM * Novolog 2-8 units UD prn ASSESSMENT: 06/06: * Patient transitioned off of insulin gtt quite quickly yesterday as BSGs normalized within a few hours * BSGs elevated again today, will hold off on insulin gtt as patient will likely correct and BSGs typically higher as an outpatient * Will give IV insulin bolus, increase basal insulin, and tighten Novolog carb ratio today 06/05: * BSGs elevated yesterday with one episode of hypoglycemia * BSGs significantly elevated today, attempted to reduce BSG with IV insulin bolus, but lunch BSG of 393 mg/dL * Will utilize IV insulin drip temporarily to safely reduce BSG * Lantus to be changed to BID dosing from daily 06/04: * 85 y/o F admitted for syncope and unresponsiveness with history of Type 2 diabetes managed by basal bolus insulin at home. * Her last dose of basal Lantus at home is unknown. Last night she was ordered Novolog with parameters using wt and stress of 2. * Fasting BSG today = 258 mg/dl. Lantus home dose resumed this AM. Novolog parameters tightened. * However pre-lunch BSG went higher to 316 mg/dl post MRI. 0.1 units/kg of IV regular insulin ordered x 1 and Novolog parameters tightened further. * Pt is known to pharmacy glycemic service from her admission over a year ago. BSGs at that would sometimes go up to 400 mg/dl. Utilized Novolog parameters today similar to previous admission. PLAN FOR INPATIENT GLYCEMIC CONTROL: * Basal insulin * Lantus 8 units SC this morning * Will give additional 2 units this afternoon and 8 units at HS for total of 18 units (~20% increase) * Bolus insulin * NovoLog per scale ACHS * Goal BSG Range: Low 110 mg/dL, High 140 mg/dL * Correction Factor: 30 mg/dL/unit * Nutritional / Prandial insulin per carb ratio of 1 unit per 4 grams CHO consumed PLAN FOR DISCHARGE: * HbA1c of 9.5% is above goal of less than 8% based on age/comorbidities * Based on current BSG trends, may be reasonable to increase basal insulin (currently ordered 18 units daily) * Could also consider pre-set Novolog doses rather than scale based on BSG - will follow inpatient insulin doses and make recommendations accordingly * Support Patient Self-Management * Encourage healthy lifestyle * Disease self-management (SMBG) * Prevention of complications (BP, Lipid goals, Immunizations) * Consider outpatient Diabetes Self-Management Education & Support
[2021-06-06] MEDS: DEXTROSE 50% 50 ML SYRINGE IV PRN (16:45)
[2021-06-06] MEDS: dilTIAZem HCL 240 MG CAPCR PO SCH (20:45)
[2021-06-07] MEDS: CARBOHYDRATES FOR HYPOGLYCEMIA PO PRN ×2 (04:37→05:05)
[2021-06-07] MEDS: LEVOTHYROXINE SODIUM 75 MCG TABLET PO SCH (05:32)
[2021-06-07 06:09] LABS: Hemoglobin 8.7 g/dL (12.0-16.0); Mean Corpuscular Hemoglobin 20.6 pg (25-34); Mean Corpuscular Hgb Conc 31.1 g/dL (32-36); Mean Corpuscular Volume 66.4 fL (80-100); Mean Platelet Volume 10.3 fL (7.4-10.4); Nucleated RBC # (auto) 0.02 K/uL (0-0); Nucleated RBC % (auto) 0.3 %; Platelet Count 241 K/uL (130-400); RDW Coefficient of Variation 15.9 % (11.5-14.5); Red Blood Count 4.22 M/uL (4.2-5.4); White Blood Count 7.27 K/uL (4.8-10.8)
[2021-06-07 06:49] LABS: Calcium 8.5 mg/dl (8.5-10.1); Creatinine Clr Calc Pharmacy 26.4 ml/min; Est GFR (African American) 53.2 ml/min; Est GFR (Non-African American) 45.9 ml/min; Magnesium 1.8 mg/dl (1.8-2.4)
[2021-06-07] MEDS: SERTRALINE HCL 50 MG TABLET PO SCH (08:55)
[2021-06-07] MEDS: ENOXAPARIN INJ 40 MG/0.4 ML SYR SQ SCH (08:55)
[2021-06-07] MEDS: lisinopril 40 MG TAB PO SCH (08:55)
[2021-06-07] MEDS: ATORVASTATIN 40 MG TAB PO SCH (08:55)
[2021-06-07] MEDS: CYANOCOBALAMIN 500 MCG TABLET (VITAMIN B-12) PO SCH (08:55)
[2021-06-07] MEDS: QUEtiapine FUMARATE 25 MG TABLET PO SCH (08:55)
[2021-06-07] MEDS: PANTOprazole 40 MG TAB PO SCH (08:56)
[2021-06-07] MEDS: INSULIN GLARGINE SOLOSTAR 100 UNITS/ML 3 ML PEN SC SCH (08:56)
[2021-06-07] MEDS: METOPROLOL SUCC 50MG EXT REL TAB PO SCH (08:56)
[2021-06-07] MEDS: INSULIN ASPART 100 UNITS/ML 3 ML PEN SC SCH ×2 (08:56→12:50)
[2021-06-07] MEDS: RIVASTIGMINE TARTRATE 1.5 MG CAP PO SCH (08:56)
[2021-06-07] MEDS: MEMANTINE HCL 5 MG TAB PO SCH (08:56)
--- NOTE | 2021-06-07 10:58 | Pharmacy Report ---
Pharmacy Glycemic Short Note 2 - Date of Service June 07, 2021 - Glycemic Short BSG Results (Last 24 hours): 06/06/21 06/06/21 06/06/21 11:09 11:11 16:41 Glucose POC Glucose 351 H* 320 H* 25 L* 06/06/21 06/06/21 06/06/21 16:42 17:00 17:02 Glucose POC Glucose 29 L* 244 H 224 H 06/06/21 06/07/21 06/07/21 20:18 00:44 04:32 Glucose POC Glucose 160 H 92 58 L* 06/07/21 06/07/21 06/07/21 04:34 05:01 05:30 Glucose POC Glucose 67 L* 60 L* 94 06/07/21 06/07/21 05:53 07:40 Glucose 161 H POC Glucose 193 H OUTPATIENT ANTIDIABETIC REGIMEN: * Lantus 15 units SQ QAM * Novolog 2-8 units UD prn ASSESSMENT: 06/07: * Patient received total fo 54 units of insulin yesterday, of which 18 units were basal insulin * Fasting BSG 58 mg/dL - plan to scale back slightly on Lantus * BSGs very labile - yesterday she had significant hypoglycemic event, treated per protocol * Appears BSGs tend to drop significantly after lunch time, plan to loosen CF/CR during this time 06/06: * Patient transitioned off of insulin gtt quite quickly yesterday as BSGs normalized within a few hours * BSGs elevated again today, will hold off on insulin gtt as patient will likely correct and BSGs typically higher as an outpatient * Will give IV insulin bolus, increase basal insulin, and tighten Novolog carb ratio today 06/05: * BSGs elevated yesterday with one episode of hypoglycemia * BSGs significantly elevated today, attempted to reduce BSG with IV insulin bolus, but lunch BSG of 393 mg/dL * Will utilize IV insulin drip temporarily to safely reduce BSG * Lantus to be changed to BID dosing from daily 06/04: * 85 y/o F admitted for syncope and unresponsiveness with history of Type 2 diabetes managed by basal bolus insulin at home. * Her last dose of basal Lantus at home is unknown. Last night she was ordered Novolog with parameters using wt and stress of 2. * Fasting BSG today = 258 mg/dl. Lantus home dose resumed this AM. Novolog parameters tightened. * However pre-lunch BSG went higher to 316 mg/dl post MRI. 0.1 units/kg of IV regular insulin ordered x 1 and Novolog parameters tightened further. * Pt is known to pharmacy glycemic service from her admission over a year ago. BSGs at that would sometimes go up to 400 mg/dl. Utilized Novolog parameters today similar to previous admission. PLAN FOR INPATIENT GLYCEMIC CONTROL: * Basal insulin * Lantus 8 units bid * Bolus insulin * NovoLog per scale ACHS * Goal BSG Range: Low 110 mg/dL, High 140 mg/dL * Correction Factor: 30 mg/dL/unit * Nutritional / Prandial insulin per carb ratio of 1 unit per 4 grams CHO consumed PLAN FOR DISCHARGE: * HbA1c of 9.5% is above goal of less than 8% based on age/comorbidities * Based on current BSG trends, may be reasonable to increase basal insulin * Could also consider pre-set Novolog doses rather than scale based on BSG - will follow inpatient insulin doses and make recommendations accordingly * Support Patient Self-Management * Encourage healthy lifestyle * Disease self-management (SMBG) * Prevention of complications (BP, Lipid goals, Immunizations) * Consider outpatient Diabetes Self-Management Education & Support
--- NOTE | 2021-06-07 14:05 | Discharge Summary ---
Date of Service June 07, 2021 Admission HPI Per Admitting Provider 85 yo female who is a poor historian This is a pleasant 85-year-old female who lives with her daughter has longstanding history of dementia and has recently been hallucinating for the past 2 months. Daughter has been taking the patient to see Dr. Wise and he has been managing her dementia. Patient today was in her living room and was her "normal self." When the daughter returned to see the patient at 12:30 PM, the patient was found sitting at the kitchen table and had her face planted in her food. The daughter also noticed that there was "stuff coming out of her nose and mouth." She described it as a green mucus". She called the ambulance. Found that her blood suagr was in the 200s. Daughter was then concerned for a possible stroke and came to the hospital via ambulance. Marcelina reports that the patient has been noncompliant with her diabetic diet and really enjoys her sweets. Her blood sugars have been elevated mainly in 200s, even in 500-600 range. The ER provider was very concerned about her slurred speech and was thinking about perhaps that she was having a stroke. Daughter though states that her slow speech has been ongoing since April of last year and this has been progressively getting worse. Daughter states that she is interested in palliative care and her ultimate goals are to have her mother comfortable. She would prefer that she could go back home but is not sure if she could take care of her. She is interested in perhaps getting physical therapy and a neurologist involved. Patient has been having some difficulty swallowing that started notes that she it takes a long time for her just to swallow but she does have food in her mouth for minutes and then decides to swallow. She has had some weight loss over the past 6 months as well daughter was unable unable to quantify how much done. She attributes this to the of the patient's son who this past year from COVID-19. 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 Lewy Body dementia Discharge Exam Constitutional WD/WN, vitals as above Eyes EOM intact bilaterally; no conjunctival abnormality ENMT external ear and nose normal, oropharynx normal Neck trachea midline, no thyromegaly normal visual inspection Respiratory normal respiratory effort, lungs clear to auscultation no respiratory distress Cardiovascular RRR, no murmur, no edema Gastrointestinal (Abdomen) Inspection/Auscultation: abdomen normal to inspection; abdomen not distended Musculoskeletal no cyanosis or clubbing, extremities motor strength 5/5 Skin no rashes, warm and dry Neurologic moves all extremities and awake Psychiatric Orientation: alert, oriented to person and cooperative Discharge Data Allergies Allergy/AdvReac Type Severity Reaction Status Date / Time clarithromycin Allergy Unknown Unknown Verified 06/03/21 15:47 Penicillins Allergy Unknown AMOXICILLIN Verified 06/03/21 15:47 amoxicillin Allergy Unknown Verified 06/03/21 15:47 fenofibrate [From Tricor] Allergy Unknown Verified 06/03/21 15:47 gemfibrozil [From Lopid] Allergy Unknown Verified 06/03/21 15:47 triamcinolone [From Nasacort] Allergy Unknown Verified 06/03/21 15:47 dulaglutide [From Trulicity] AdvReac Severe Nausea Verified 06/03/21 15:47 semaglutide [From Ozempic] AdvReac Severe Nausea Verified 06/03/21 15:47 oseltamivir [From Tamiflu] AdvReac Intermediate GI upset Verified 06/03/21 15:47 venlafaxine AdvReac Intermediate Dizziness Verified 06/03/21 15:47 escitalopram [From Lexapro] AdvReac Unknown "falls" Verified 06/03/21 15:47 nitrofurantoin AdvReac nausea/vomi Verified 06/03/21 15:47 ting Consultations 06/03/21 15:33 ED Decision to Admit Stat 06/03/21 17:20 Consult Palliative Care Stat 06/03/21 18:11 Consult Neurology Routine Ordered Studies 06/03/21 13:32 CT head/brain wo con Stat 06/04/21 11:03 MR brain wo/w con Urgent Hospital Course (1) Unresponsive episode: Patient was found unresponsive, found facedown in her dinner, but without any seizure-like activity. She was laid down on the floor and woke up fairly quickly afterwards and did not seem to have any sort of postictal state. Likely syncope Blood sugar at that time was elevated at 268. Blood pressures have been normal to elevated, CT of the head showed old ischemic changes, chest x-ray negative, urine tox screen negative, and no significant arrhythmias on telemetry since admission. Of note, her TSH was significantly elevated at 15. She is anemic with a hemoglobin of 9.0 but this is not too far from her baseline and she has a history of thalassemia Urinalysis seems to be contaminated with epithelial cells and not consistent with true UTI B12 checked and is normal ECG sinus bradycardia and T wave abnormality in lateral leads, normal intervals although QRS is borderline prolonged Her Seroquel dose has been titrated upwards over the last 2 months to 50 mg p.o. twice daily-perhaps there is some orthostasis She does have an underlying undiagnosed dementia with psychotic features- appreciate neurology consultation-suspects possible Lewy body dementia variant without parkinsonism or a senile dementia of Alzheimer's type with prominent visual hallucinations and cognitive fluctuations. Work-up for stroke has been negative-MRI of the brain negative for stroke. - Echocardiogram ordered to look for structural abnormalities could cause syncope -> None noted: EF 60-65%, no valvular issues. Similar to echo in 07/2017. - Continue telemetry monitoring - Increased levothyroxine dose to 75 mcg and encouraged her to take this separately from her other medications for better absorption - Checked orthostatics-drops from lying to sitting but then goes back up with standing. - Neurology also states that patients with Lewy body dementia can also have syncope. (2) Slurred speech: This appears o be an ongoing issue and is chronic. It has been gradually getting worse. Could be related to hypothyroidism though - increasing levothyroxine as above. (3) Dementia: Never formally evaluated - seen by neurology today. MRI of the brain with diffuse encephalomalacia but no acute stroke. -> As above, suspects either Lewy body dementia variant without Parkinsonism or senile dementia the Alzheimer's type with prominent visual hallucinations and cognitive fluctuations. - Could be an overlap between these 2 conditions as well Neurology recommends continuing rivastigmine at same dose and increase memantine to 5 mg p.o. twice daily. - Would need an overnight sleep study as an outpatient to look for REM sleep disorder which would be typical of Lewy body dementia. - Recommends continuing Seroquel 50 mg p.o. twice daily for hallucinations as well as home sertraline 150 mg once a day for depression. -> Keep appointment that was already scheduled with neurology. (4) Diabetes type 2, uncontrolled: With significant hyperglycemia in the 400s here. A1c is 9.5% this admission. - Glycemic control was consulted - Was on insulin gtt on 06/05, now back to basal/bolus. Work with pharmacy on discharge dosing. Per daughter, she has always run quite high. (5) Hypothyroidism: TSH elevated at 15 this admission. She reports that she takes all 12 her morning pills at the same time. - Encouraged separation of levothyroxine from the other pills - she may need assistance with this at home. - Increase levothyroxine 75 mcg daily - Follow TFTs in 4 to 6 weeks (6) Hyperlipidemia: - Continue statin (7) Hypertension: Blood pressures are elevated somewhat here, but also somewhat labile. BP is 120/60. - Continue home diltiazem, lisinopril, Toprol-XL (8) GERD (gastroesophageal reflux disease): No acute issues. - Continue home PPI (9) Chronic kidney disease: With mild elevation of creatinine on admission at 1.21 up from baseline of 0.8 consistent with acute kidney injury. - Creatinine was 1.0 on 06/05; baseline. (10) Thalassemia minor: Hemoglobin fairly stable around baseline 9.0. (11) DVT prophylaxis: Lovenox 40 mg SQ QAM Total Time Total Time Spent Total Time Spent (In Minutes): 35 Discharge Plan Discharge Items Patient Disposition: Hospice - Home Reason For Visit: SYNCOPE Discharge Diagnosis: Syncope Activity: Resume your previous activity Non-emergency contact: Primary Care Provider Call non-emergency contact if: your symptoms worsen Follow-up/Referrals: Shahzad Wise DO [Primary Care Provider] - Diet: Regular Addtl Attending Provider Instructions: Ms. Pinto was admitted for a syncope episode. This may have been due to blood pressure changes from some mild dehydration, medications, or even due to dem entia which can cause relatively big swings in blood pressure. While here, she was seen by neurology who felt that she likely has an Alzheimer's variant of dementia or possibly Lewy Body dementia. A few small medication changes were made to help improve symptoms as best we can. We also mildly increased her insulin and Synthroid (thyroid medication). Plan will be to be discharged with hospice services. Pending Studies at Discharge: No Stand-Alone Forms: My [email or web address] Medications and DC Order Prescriptions: New levothyroxine [Synthroid] 75 mcg Tablet 75 mcg PO DAILYBB Qty: 30 RF: 0 Continued diltiazem HCl 240 mg capsule,extended release 24hr 240 mg PO QPM Qty: 90 RF: 3 metoprolol succinate 50 mg tablet extended release 24 hr 50 mg PO DAILY Qty: 90 RF: 3 rivastigmine tartrate 1.5 mg capsule 1.5 mg PO BID Qty: 60 RF: 2 lorazepam 0.5 mg tablet See Rx Instructions PO DAILY PRN (Reason: anxiety) Qty: 45 RF: 2 Hold Instructions: plan reduction 0.25 mg qam and 0.5 mg qpm for 1 month lisinopril 40 mg tablet 40 mg PO DAILY Qty: 90 RF: 3 sertraline 100 mg tablet 150 mg PO DAILY Qty: 90 RF: 1 omeprazole 20 mg capsule,delayed release(DR/EC) 20 mg PO QAM Qty: 90 RF: 1 (DME) pen needle, diabetic [Comfort EZ Pen [place]] 31 gauge x 5/16" needle See Rx Instructions .ROUTE .MEDSUPPLY Qty: 400 RF: 1 (DME) lancets [OneTouch Delica Lancets] 30 gauge misc See Rx Instructions .ROUTE .MEDSUPPLY Qty: 100 RF: 0 insulin aspart U-100 [Novolog Flexpen U-100 Insulin] 100 unit/mL (3 mL) insulin pen 2 - 8 unit subcut UD PRN (Reason: hyperglycemia) Qty: 3 RF: 0 cyanocobalamin (vitamin B-12) 1,000 mcg tablet 1,000 mcg PO DAILY Qty: 90 RF: 0 glucagon 1 mg/0.2 mL auto-injector 1 mg subcut ONCE PRN (Reason: low blood sugar) RF: 0 (DME) OneTouch Ultra Test Strip See Rx Instructions .Route RF: 0 quetiapine 50 mg tablet 50 mg PO BID Qty: 60 RF: 2 acetaminophen 500 mg capsule 500 mg PO Q6H PRN (Reason: Pain) RF: 0 Changed memantine [Namenda] 5 mg tablet 5 mg PO BID 30 Days Qty: 60 RF: 0 Lantus Solostar U-100 Insulin 100 unit/mL (3 mL) insulin pen 18 unit SC QAM Qty: 0 RF: 0 Discontinued atorvastatin 40 mg tablet 80 mg PO DAILY Qty: 180 RF: 3 levothyroxine 50 mcg tablet 50 mcg PO DAILY Qty: 90 RF: 3 Discharge Orders: Discharge Order (Routine); Ordered 06/07/21 Ordered By: Riky Manzo Admission Data Admit Date/Time: 06/03/21 17:40 Attending Provider: Riky Manzo Admit Provider: Edward Ludwig Primary Care Provider: Shahzad Wise Other Providers: Edward Ludwig ; Gretchen Amos ; Shahzad Shelley ; Philip Faulkner ; Erika Angela ; Juany Fontaine ; Madhuri Silva ; [facility] Coding Level of Care Code D/C DAY MANAGEMENT >30 MINS Diagnoses Unresponsive episode R41.89 Slurred speech R47.81 Dementia F03.90 Diabetes type 2, uncontrolled E11.65 Hypothyroidism E03.9 Hyperlipidemia E78.5 Hypertension I10 GERD (gastroesophageal reflux disease) K21.9 Chronic kidney disease N18.9 Thalassemia minor D56.3 DVT prophylaxis Z29.9
== END 2021-06-07 16:54 | disposition hospice, home (50) | DRG 57 ==
LOC: ED 13:22 → SUATTDRO 17:40 → 2N 17:40